=== PATIENT | male | born 1935 | race Caucasian/White ===

== ENCOUNTER 2024-04-04 18:56 | Inpatient (IN) | payer MEDICARE, OTHER, SELFPAY ==
[2024-04-04] VITALS (29 sets, daily range): BP systolic 124–168; BP diastolic 62–117; BMI 31.4
--- NOTE | 2024-04-04 14:44 | ED.GENMED ---
History of Present Illness
General
Chief Complaint: Chest Pain
Source: patient and family (Daughter is the primary historian)
Time Seen by Provider: 04/04/24 14:43
History of Present Illness
History of Present Illness:
89-year-old male complaining of 3 to 4 weeks of chest pain. In the chest and leg. Extra burping. Has a positive H. pylori result from 2 days ago. On Nexium. Symptoms are worse in the evening. Relatively continuous for this time. But does wax
and wane. Nonexertional. Pain does radiate to the back at times
Past History
Past History
ED Past Medical History: CAD, Cancer (Multiple Myeloma), GERD, HTN, Hypercholesterolemia and Other (Angina, Ulcers)
ED Past Surgical History: Cardiac (Stents X2)
Social History
Tobacco: Former smoker
Alcohol: None
Personal:
Living: with family
Family History
Family History: Other (Sister with OK, multiple sisters with hypertension)
Review of Systems
Review of Systems
All Other Systems: Not applicable
Respiratory: Reports no symptoms
ABD/GI: Denies bloody stools or black stools
Phy Exam
Physical Exam
Physical Exam:
GENERAL: Alert and oriented in no apparent distress
EYE: Orbits normal.
NECK: Supple, no thyroid palpable
ENT: Pharynx without erythema
CARDIAC: Regular rate and rhythm with moderate midsystolic murmur.
LUNGS: Clear breath sounds,normal
ABDOMEN: Soft, without focal tenderness or distention
NEUROLOGICAL: Alert and oriented , grossly non-focal
SKIN: Warm and dry, no rash or lesion, no discoloration, skin intact.
MUSCULOSKELETAL: Mild bilateral lower extremity edema
PSYCH: Normal and appropriate interaction.
Scores
Heart Score for Chest Pain Patients
STEMI patient?: No
History: Moderately Suspicious
ECG: Significant ST-Depression
Age: >/= 65 years
Risk Factors: >/= 3 Risk Factors or History of CAD
Troponin: >/= 3 x Normal Limit
Heart Score for Chest Pain Patients: 9
Heart Score Risk: 72.7 % MACE over next 6 weeks
Course
Orders/Labs/Results
Orders:
Orders
04/04/24 13:57
EKG [Electrocardiogram (*1)] Urgent
Reason for Study: Chest Pain
EKG- Treatment ONCE
04/04/24 14:54
IV Insert/Care/Rem.- Treatment PRN
0.9% Sodium Chloride 500 ml [Nss] 500 ml IV BOLUS
04/04/24 15:07
Complete Blood Count/With Diff Urgent
04/04/24 15:30
US Abdomen Complete/Upper Urgent
Comment:
Reason For Exam: upper abd pain
04/04/24 16:14
Troponin I Urgent
04/04/24 16:51
Comprehensive Metabolic Panel Urgent
04/04/24 17:38
EKG [Electrocardiogram (*1)] Urgent
Reason for Study: Chest Pain
04/04/24 17:39
EKG- Treatment ONCE
Chest X-ray Portable [CR Chest Portable - 1 View] Routine
Comment:
Reason For Exam: Admission
Reason Study Needs to be Portable: Unable to Transport
04/04/24 17:44
Heparin 4,000 units IV NOW STA
Nursing to Place Non Medication Order As Directed
Physician Order: PTT 6 hours after initial start of Heparin infusion
Above order entered?: Yes
04/04/24 17:45
Heparin 99177 Units/250 ml 25,000 units in 250 ml IV PER PROTOCOL
Weight to be used for heparin protocol in kilograms (kg):: 83
Protocol:: Cardiac Tx/Acute Coronary
PTT Goal Range to be used:: PTT 73 to 111 seconds
Order type:: Initial
INITIAL Infusion Dose (UNITS/KG/hr) & then follow protocol:: 12 units/kg/hr
Infusion Dose in UNITS/hr & then follow protocol (UNITS/hr):: 1,000
INFUSION RATE in mL/hr & then follow protocol (mL/hr):: 10
PTT less than or equal to 64 seconds:: Increase rate by 200 units/hr (+ 2 mL/hr)
PTT 64.1 to 72.9 seconds:: Increase rate by 100 units/hr (+ 1 mL/hr)
PTT 73 to 111 seconds:: Target Range. No change in rate.
PTT 111.1 to 130.9 seconds:: Decrease rate by 100 units/hr (- 1 mL/hr)
PTT 131 to 199.9 seconds:: HOLD for 1 hr. Then decrease rate by 200 units/hr (- 2 mL/hr)
PTT greater than or equal to 200 seconds:: HOLD for 2 hrs & Notify Provider. Then decrease by 200 units/hr (-
2 mL/hr)
Lab follow-up:: Each change, PTT q6h until 2 consecutive are therapeutic. Then PTT
daily.
Nitroglycerin 100 mg/250 ml [Nitroglycerin Premix] 100 mg in 250 ml IV NOW
Initial dose in mcg/min, then titrate:: 5
Titrate to keep:: Chest Pain Free
Titrate by mcg/min:: 5 mcg/min, may increase by 10 mcg/min if dose > 20 mcg/min
Frequency of titrations (minutes):: every 3-5 minutes
Maximum dose in mcg/min:: 200
Begin to taper infusion when:: Remained at goal for 2hrs
Taper by mcg/min:: 5 mcg/min
Frequency of taper (minutes) if patient maintains goal:: 30
Taper to off?: Yes
If infusion off & no longer maintaining goal:: Contact Provider
Nitroglycerin Sublingual [Nitrostat (Sublingual)] 0.4 mg SL [id number] PRN
04/04/24 17:52
Aspirin Chewable [Low Strength Aspirin] 324 mg PO NOW STA
04/04/24 17:53
PTT Urgent
Comment: Obtain baseline before beginning heparin infusion if not already collected
04/04/24 18:19
Morphine Sulfate 1 mg IV Q4HPRN PRN
Morphine Sulfate 2 mg IV Q4HPRN PRN
04/04/24 18:20
0.9% Sodium Chloride [Nss (Preservative Free)] 10 ml IV BID
Pantoprazole [Protonix IV] 40 mg IV BID
04/04/24 18:24
GASTROINTESTINAL CONSULT Routine
Consulting Provider: Jose G Torres
Was physician already notified: Yes
Reason for consult: recent breath test hpylori
04/04/24 18:28
CARDIOLOGY CONSULT Routine
Consulting Provider: Dee Montgomery
Was physician already notified: Yes
Reason for consult: nstemia
04/04/24 18:29
Admit/Transfer Patient As Directed
Co-Sign Provider:
Level of Care: Inpatient admission
Assign to:: IVU
Physician / Group: hannah kaur
Diagnosis: nstemi
Reason for Hospitalization: nstemi
Expected length of stay greater than two midnights?: Yes
ELOS- Estimated Length of Stay in days: 4
I certify the patient meets the requirements for IP care: Yes
Code Status As Directed
Resuscitation Status: Full Code
04/04/24 18:33
PRN Pain Medication Management As Directed
May give lesser potent ordered pain med per pt: Yes
preference::
Protocol:: Medication orders for pain may be administered in a
manner that supports deferring to patient preference
when the pt is:
- Requesting an ordered lesser potent pain medication.
Least to most potent pain medications are defined
as: acetaminophen < NSAID < tramadol < opioids
(morphine, oxycodone, hydromorphone).
- Requesting a lesser dose of the same medication IF
ORDERED.
- Requesting a less intrusive route of administration
if both routes are prescribed by the provider (PO <
IV).
04/04/24 18:43
Furosemide [Lasix] 40 mg IV NOW STA
04/05/24 00:00
PTT Routine
Abnormal Lab Results
04/04/24 04/04/24 04/04/24
15:07 16:14 16:51
RBC 2.80 L 10^6/uL
(4.70-6.10)
Hgb 9.1 L g/dL
(13.0-18.0)
Hct 25.7 L %
(39.0-52.0)
MCH 32.5 H pg
(27.0-31.0)
Chloride 113 H mmol/L
(98-107)
Carbon Dioxide 20 L mmol/L
(22-30)
BUN 40 H mg/dl
(9-20)
Troponin I 0.502 H* ng/ml
Total Protein 5.9 L g/dl
(6.3-8.2)
Albumin 3.3 L g/dl
(3.5-5.0)
04/04/24 15:07
04/04/24 16:51
Vital Signs
Initial and Last Documented VS:
Initial Vital Signs
Temp Pulse Resp BP Pulse Ox
98.4 F 54 16 136/64 98
04/04/24 13:54 04/04/24 13:54 04/04/24 13:54 04/04/24 13:54 04/04/24 13:54
Last Documented Vital Signs
Temp Pulse Resp BP Pulse Ox
98.4 F 77 21 135/72 97
04/04/24 13:54 04/04/24 18:45 04/04/24 18:45 04/04/24 18:45 04/04/24 18:45
MDM/Problems Addressed
Differential Diagnosis Includes:
Patient with weeks of epigastric midsternal discomfort with at times radiation to the back. Not exertional. Worse at night. Recent positive H. pylori. Highly doubt cardiac given the prolonged continuous nonexertional symptoms. However we will
do cardiac testing for completeness. EKG stable. Troponin is pending. Had initially contemplated a CT angiography to rule out dissection or aortic issue. Again very very low suspicion for this clinically. Patient is in no distress perfusing
well nontoxic and has had weeks of symptoms. However with the renal insufficiency multiple myeloma and reviewed with the signal maintainer, and reluctant to risk the dye load. Given a very low clinical suspicion. This was discussed with the daughter.
*Radiology
Radiology exam reviewed: preliminary read by ED provider (Possible mild CHF) and radiology read reviewed (Mild CHF)
*Pulse Oximetry
Patient hypoxic: no
*EKG
Interpreted by ED Provider?: Yes
Interpretation: abnormal
Comparison EKG: no changes
Heart Rate: 58
Rate: bradycardiac
Rhythm: sinus
Fruita: normal axis
Interval: normal interval
QRS Pattern: normal QRS
Ischemia: no ischemia
*Critical Care Note
Total Time (30-74mins, 75-104mins- exclusive of procedures): 45
Data Reviewed
Review of Other/Old Records Reveals: Labs, Records and Testing
Update Note
Update Note:
Rectal exam heme-negative. Patient with recurrent pain. Cardiology in the room. Heparin aspirin ordered.
1750. Repeat EKG with some ischemic changes. Will add aspirin. Daughter updated. Patient daughter stated he has been anemic from his multiple myeloma
1834... Patient with ongoing discomfort. Still states it 10 out of 10. Vital signs are stable. Cardiology and hospitalist contacted. They will initiate the [employer].
ED Attending Note
-
Portions of this chart may have been created with voice recognition software.� Occasional wrong word or��sound alike� substitutions may have occurred due to the inherent limitations of voice recognition software.
Discharge Plan
Departure
Patient Disposition: Admit
Date of Disposition: 04/04/24
Time of Disposition: 17:25
Presentation/result/management discussed w/ accepting MD/DO: Cardiology
Discharge Problem:
Epigastric/chest pain, Non-STEMI OK, Mild CHF
Prescriptions:
No Action
amlodipine 5 MG tablet
5 mg PO HS
tamsulosin 0.4 MG capsule
0.4 mg PO DAILY
nitroglycerin 0.4 MG tablet, sublingual
0.4 mg sublingual [id number] PRN (Reason: chest pain)
finasteride 5 MG tablet
5 mg PO DAILY
metoprolol succinate 50 mg tablet extended release 24 hr
75 mg PO DAILY
meloxicam 15 mg tablet
15 mg PO DAILYPRN PRN (Reason: mild pain)
famotidine 40 mg tablet
40 mg PO DAILY
isosorbide mononitrate 30 mg tablet extended release 24 hr
30 mg PO DAILY
clonazepam 0.5 mg tablet
0.5 mg PO HS
Patient Comments:
04/04/2024: last filled 03/11/24, 60 tabs for 60 days from [facility]
omeprazole 40 mg capsule,delayed release(DR/EC)
40 mg PO DAILY
alprazolam 0.25 mg tablet
0.25 mg PO TIDPRN PRN (Reason: anxiety)
Patient Comments:
04/04/2024: last filled 03/12/24, 30 tabs for 10 days from [facility]
bismuth subsalicylate [Pepto-Bismol] 262 mg/15 mL Suspension
524 mg PO AC
doxazosin 4 mg tablet
2 mg PO BID
bumetanide 1 mg tablet
1 mg PO DAILYPRN PRN (Reason: swelling)
oxycodone 5 mg tablet
5 mg PO Q8HPRN PRN (Reason: moderate to severe pain)
Patient Comments:
04/04/2024: last filled 03/11/24, 30 tabs for 7 days from [facility]
Referrals:
Toby Mcgregor MD [Family Provider] -
Interventions
Interventions:
*Risk Screen - Suicide Last Done: 04/04/24 14:52
*General Assessment Last Done: 04/04/24 14:52
*Neglect/Abuse Screening Last Done: 04/04/24 14:52
ED- Cardiac Assessment Last Done: 04/04/24 14:52
Discharge Date and Time
Print Language: LATVIAN
[2024-04-04 15:16] LABS: % Basophils 0.4 % (0-2); % Eosinophils 1.6 % (0-6); % Immature Granulocytes 0.4 % (0-0.5); % Lymphocytes 27.7 % (20.5-51.1); % Monocytes 6.4 % (1.7-9.3); % Neutrophils 63.5 % (42.2-75.2); Absolute Eosinophils 0.1 10^3/uL (0-0.7); Absolute Lymphocytes 1.9 10^3/uL (1.2-3.4); Absolute Monocytes 0.4 10^3/uL (0.1-0.6); Absolute Neutrophils 4.3 10^3/uL (1.4-6.5); Hematocrit 25.7 % (39.0-52.0); Hemoglobin 9.1 g/dL (13.0-18.0); Mean Corp Hgb Conc. 35.4 g/dL (33.0-37.0); Mean Corpuscular Hgb 32.5 pg (27.0-31.0); Mean Corpuscular Volume 91.8 fL (80.0-94.0); Mean Platelet Volume 9.9 fL (7.4-10.4); Nucleated Red Blood Cells % 0 % (-); Platelet Count 131 10^3/uL (130-400); Red Cell Dist. Width 13.4 % (11.5-14.5); White Blood Cell Count 6.8 10^3/uL (4.8-10.8)
[2024-04-04] MEDS: NSS 500 IV (15:19)
[2024-04-04 16:55] LABS: Troponin I 0.502 ng/ml
[2024-04-04 17:13] LABS: ALT (SGPT) 13 U/L (0-50); AST (SGOT) 28 U/L (17-59); Albumin 3.3 g/dl (3.5-5.0); Alkaline Phosphatase 67 U/L (38-126); Blood Urea Nitrogen 40 mg/dl (9-20); Calcium 8.6 mg/dl (8.4-10.2); Carbon Dioxide 20 mmol/L (22-30); Chloride 113 mmol/L (98-107); Estimated Creatinine Clearance 39 ml/min; Glucose 79 mg/dl (70-99); Potassium 4.4 mmol/L (3.5-5.1); Sodium 141 mmol/L (135-145); Total Bilirubin 0.4 mg/dl (0.2-1.3); Total Protein 5.9 g/dl (6.3-8.2); eGFR 53.17
--- NOTE | 2024-04-04 17:50 | HPS.HSE ---
Family Physician
-
Family Physician: Toby Mcgregor
Chief Complaint
-
Chest pain with dyspepsia, belching
History of Present Illness
89-year-old male complaining of 3 to 4 weeks of chest pain with dyspepsia/belching. He reports the chest pain has gotten worse and radiated to his left arm over the past 10 days. He has been taking 1-2 nitroglycerin sublingual daily for the past 2
weeks according to his daughter. His daughter who is at bedside translating [place] to [place] states he had a breath test at his PCP that was positive for H. pylori result from test 2 days ago. He is currently only on Nexium. He was not placed
on H. pylori treatment..
He has history of gastric ulcers every 2 years per daughter nonbleeding follows with Dr. Adrian Frankel. His past medical history of cardiac stent x 2 with cardiology at [facility]. He denies headache, fever, sore throat, shortness of
breath, cough, abdominal pain, nausea, vomiting, diarrhea, urinary symptoms. He did have episode of black stool yesterday but took Pepto-Bismol. He was guaiac negative in the ED.
He has history of multiple myeloma is currently being treated at [facility] with no current treatment over the past 4 months due to being stable. His daughter does not know current treatment that he receives.
He has past medical history of CAD/cardiac stents x 2, aortic stenosis, HTN, HLD, angina, gastric ulcers, GERD, multiple myeloma being treated at [facility], history of anemia in 2023., former smoker, obesity.
Medical History
Past Medical History
Past Medical History: Reports Other
Additional Past Medical History:
CAD/cardiac stents x 2 [facility]
aortic stenosis
HTN
HLD
angina
gastric ulcers every 2 years per daughter
GERD
multiple myeloma being treated at [facility], history of anemia in 2023.
former smoker
obesity.
Past Surgical History: Reports Cardiac (Stent x 2 at [facility])
Additional Past Surgical History:
Cardiac stent x 2
Multiple endoscopies
Social History
Tobacco: Former Smoker (Quit 20 years ago)
Alcohol: None
Drug: None
Personal: Single
Living: With Family
Employment: Retired
Family History
Family History: Other (Patient's parents when he was a child unsure sister history of CAD, MIs)
Allergies / Home Medications
Allergies reflects when Allergies were last updated in [facility].
Home Medications with original date entered in [facility]
Allergy/Medication List:
Allergies
Allergy/AdvReac Type Severity Reaction Status Date / Time
Penicillins Allergy Unknown Verified 04/04/24 13:54
Home Medications
amlodipine 5 mg tablet 5 mg PO HS 01/15/19
finasteride 5 mg tablet 5 mg PO DAILY 01/15/19
nitroglycerin 0.4 mg sublingual tablet 0.4 mg sublingual [id number] PRN chest pain 01/15/19
tamsulosin 0.4 mg capsule 0.4 mg PO DAILY 01/15/19
alprazolam 0.25 mg tablet 0.25 mg PO TIDPRN PRN anxiety 04/04/24
bismuth subsalicylate 262 mg/15 mL oral suspension (Pepto-Bismol) 524 mg PO AC 04/04/24
bumetanide 1 mg tablet 1 mg PO DAILYPRN PRN swelling 04/04/24
clonazepam 0.5 mg tablet 0.5 mg PO HS 04/04/24
doxazosin 4 mg tablet 2 mg PO BID 04/04/24
famotidine 40 mg tablet 40 mg PO DAILY 04/04/24
isosorbide mononitrate 30 mg tablet,extended release 24 hr 30 mg PO DAILY 04/04/24
meloxicam 15 mg tablet 15 mg PO DAILYPRN PRN mild pain 04/04/24
metoprolol succinate 50 mg tablet,extended release 24 hr 75 mg PO DAILY 04/04/24
omeprazole 40 mg capsule,delayed release 40 mg PO DAILY 04/04/24
oxycodone 5 mg tablet 5 mg PO Q8HPRN PRN moderate to severe pain 04/04/24
Review of Systems
-
History Source: Patient and Family (Daughter translating for father as he speaks Australian only)
A 12 point ROS was completed and negative except as noted: Yes
Constitutional: Denies Fever, Weight Gain, Weight Loss or Fatigue
EENT: Denies Sore Throat or Mouth Swelling
Respiratory: Reports Other (Belching); Denies Cough or Trouble Breathing
Cardiac: Reports Chest Pain; Denies Diaphoresis, Palpitations or Syncope
Abdomen/GI: Reports Black Stools (Yesterday after Pepto-Bismol); Denies Abdominal Pain, Nausea, Vomiting, Diarrhea, Constipated or Bloody Stools
: Denies Dysuria, Frequency, Flank Pain, Incontinence, Difficulty Voiding or Urgency
Musculoskeletal: Denies Joint Pain or Muscle Stiffness
Skin: Denies Itching or Rash
Neurological: Denies Dizzy or Headache
Endocrine: Reports No Symptoms
Hematologic/Lymphatic: Reports No Symptoms
Psych: Reports Calm
Physical Exam
Vital Signs
Vital Signs
Temp Pulse Resp BP Pulse Ox
98.4 F 52 13 143/65 96
04/04/24 13:54 04/04/24 16:30 04/04/24 16:30 04/04/24 16:00 04/04/24 16:30
Physical Exam
General: Pain (8) and Obese; No Fever or Chills
HEENT: NormoCephalic, Anicteric, Moist mucous membranes, PERRLA, [place] Conjunctivae and No Ptosis
Respiratory: Clear; No Wheezes, Rales or Rhonchi
Cardiac: S1/S2 and Regular Rhythm; No Murmur, Rub, Gallop or Peripheral Edema
GI: Soft, Non Tender, Non Distended, Normal Bowel Sounds and No Hepatosplenomegaly
Rectal: Deferred by Provider
Genito-urinary: Deferred by me
Musculoskeletal: No Clubbing, No Cyanosis and No Edema
Skin: Warm and Dry; No Rash
Neuro: AO x 3 (Per daughter who speaks Australian), Nonfocal/grossly intact and No Sensory Deficits; No Slurred Speech, Facial Droop or Tremors
Psych: Calm
Laboratory Results
-
04/04/24 15:07
04/04/24 16:51
Laboratory Results
Total Bilirubin 0.4 mg/dl (0.2-1.3) 04/04/24 16:51
AST 28 U/L (17-59) 04/04/24 16:51
ALT 13 U/L (0-50) 04/04/24 16:51
Alkaline Phosphatase 67 U/L (38-126) 04/04/24 16:51
Troponin I 0.502 ng/ml H* 04/04/24 16:14
Lipase Cancelled 04/04/24 15:07
Impression/Plan
-
Impression/plan:
Inpatient IVU
#NSTEMI
Troponin 0.502, will trend along with EKG
-Heparin drip with bolus
-Nitro drip
-Consult cardiology-CBC
-Hold Imdur as patient is on nitro drip
-Morphine as needed pain
-Continue metoprolol succinate 75 mg daily with hold parameters
-N.p.o. after midnight for cardiac cath in a.m.
-Obtain records from [facility] cardiology
-Check 2D echo
-Hold current as needed Bumex ? Hx CHF
EKG: Sinus bradycardia 58 bpm, QTc 445 MS otherwise normal
#Multiple myeloma with acute on chronic anemia
Hgb 9.1 prior baseline 2022(reports history of anemia in 2023 but does not know lab values)
RBC 2.80
-Currently gets treatment at [facility] no current treatment time past 4 months
-Will obtain records from [facility]
#History H. pylori-recent breath test by PCP received results 04/02/2024
-Continue IV Protonix twice daily in place of current Nexium
-Consult GI for possible treatment given H. pylori was done by breath test only
#HTN�benign
BP 143/65
-Patient currently on nitro drip
-Will hold amlodipine 5 mg at bedtime
#Chronic leg pain unclear
Hold meloxicam 15 mg daily as needed
#Anxiety
-Continue alprazolam 0.25 mg p.o. 3 times daily as needed anxiety, clonazepam 0.5 mg at bedtime
#BPH
-Continue Flomax 0.4 mg daily with hold parameters
-Continue doxazosin 2 mg p.o. twice daily
#Former smoker
-Quit 20 years ago
#Obesity due to excess calorie consumption�BMI 31.4
Affects all aspects of care
Weight loss recommended
DVT prophylaxis
Current IV heparin drip
Full code
[2024-04-04] MEDS: NITROSTAT (SUBLINGUAL) 0.4 MG SL (18:02)
[2024-04-04] MEDS: HEPARIN 4000 UNITS IV (18:04)
[2024-04-04] MEDS: LOW STRENGTH ASPIRIN 324 MG PO (18:05)
[2024-04-04] MEDS: HEPARIN 25000 UNITS/250 ML IV (18:07)
[2024-04-04] MEDS: NITROGLYCERIN PREMIX 250 IV (18:08)
[2024-04-04 18:11] LABS: APTT 30.9 Sec (23.4-35.0)
[2024-04-04] MEDS: NSS (PRESERVATIVE FREE) 10 ML IV (18:38)
[2024-04-04] MEDS: PROTONIX IV 40 MG IV (18:38)
[2024-04-04] MEDS: MORPHINE SULFATE 2 MG IV (18:40)
--- NOTE | 2024-04-04 20:18 | ITS.CL.ANGIO ---
Soap [employer]inder - Angioplasty
Angioplasty
Procedure Report:
CARDIAC CATHETERIZATION REPORT
Date of Procedure: 04/04/2024
Referring: Dee Montgomery M.D.
INDICATION: High risk non-ST elevation myocardial infarction with lateral ST segment depressions.
PROCEDURE:
1. Coronary angiography.
2. Successful PCI of the ramus intermedius.
ACCESS:
6 [place]ien right radial artery.
CATHETERS:
1. 5 [place] JR4.
2. 5 Nigerien JL 3.5.
3. 6 [place] EBU 3.5 guiding catheter.
HEMODYNAMIC DATA
Weight (kg): 83.0
AO (s/d/x, mmHg): 116/67/87
LV (s/x mmHg): Not obtained.
LEFT VENTRICULOGRAPHY: Not performed.
CORONARY ANGIOGRAPHY
Dominance: Right.
Left Main: Normal size, trifurcating vessel. There is a 40-50% tapering of the distal left main.
LAD: Normal size vessel giving rise to 1 small diagonal. A patent stent is observed in the proximal vessel. There is a 30-40% lesion in the proximal LAD that begins proximal to the stent and extends into the proximal stent margin. There are
luminal irregularities elsewhere.
Ramus: Large size vessel supplying the entire anterolateral wall. There is a 40% lesion in the proximal vessel. There is a hazy, 80% ruptured plaque in the mid vessel.
Circumflex: Normal size, nondominant vessel giving rise to 2 obtuse marginals. There is a 30-40% lesion in the mid vessel, immediately after the origin of OM1. There is a patent stent in the proximal margin of OM 2.
RCA: Large size, dominant vessel with a large posterolateral arcade. There is a 40% tapering of the proximal vessel. There are luminal irregularities throughout the remainder of the vessel. There is a discrete, 30% lesion in the distal RCA.
INTERVENTION(S)
1. Successful PCI of the hazy, 80% ruptured plaque in the mid ramus intermedius ([employer]onic [place] 3.0 x 18 RAYNE, postdilated with a 3.0 NC balloon) with reduction in stenosis to 0%, maintaining GROVER-3 flow.
Narrative:
The decision was made to proceed with percutaneous coronary intervention. The diagnostic catheter was removed over a wire and a 6Fr EBU 3.5 guiding catheter was advanced to the aortic root and seated in the left main coronary artery. Additional
heparin was given and a Power Turn Flex wire was advanced into the distal ramus intermedius. The hazy, 80% ruptured plaque lesion in the ramus was predilated with a 2.0 x 12 semi-compliant balloon to 12 curtis. The semi-compliant balloon was removed
and a [employer]tronic [place] 3.0 x 18 drug-eluting stent was advanced. The stent was deployed at 12 atmospheres. The stent balloon was removed. A 3.0 x 15 noncompliant balloon was advanced into the stent and the stent was postdilated to 14
atmospheres. Angiography was performed in orthogonal views, confirming good stent expansion and an excellent angiographic result. The coronary wire was withdrawn and the guide was disengaged from the artery. The catheter was removed over a standard
J-wire.
Closure Device: Vascular band.
Radiation (mGy): 883.93
DAP (cm2.Gy): 75.0595
Fluoroscopy time (minutes): 7.5
Sedation time (minutes): 34
CONCLUSIONS
1. Right dominant circulation with a 40% tapering of the proximal RCA, a 30% lesion in the distal RCA, a 30-40% in the mid circumflex, a patent stent in proximal OM 2, a 40-50% tapering of the distal left main, a 30-40% lesion in the proximal LAD
leading into in-stent restenosis, a 40% lesion in the proximal ramus and a hazy, 80% ruptured plaque in the mid ramus, status post successful PCI ([employer]tronic [place] 3.0 x 18 RAYNE, postdilated with a 3.0 NC balloon) with reduction in stenosis to
0%, maintaining GROVER-3 flow.
RECOMMENDATIONS:
1. Expectant management after cardiac catheterization via right radial approach.
2. Limited weight bearing on the right wrist for one week.
3. Dual antiplatelet therapy with aspirin and ticagrelor for at least 12 months, followed by aspirin indefinitely.
4. Aggressive risk factor modification.
5. Guideline directed medical therapy as hemodynamics will tolerate.
6. Echocardiogram ordered and pending.
7. Referral to cardiac rehab.
Copy to: Dee Montgomery M.D., Brittaney Bailon M.D., Toby Mcgregor M.D.
Eugene Kilpatrick DO, FACC, FACP
[2024-04-04] MEDS: LASIX 40 MG IV (21:16)
[2024-04-04] MEDS: NSS (PRESERVATIVE FREE) IV (21:28)
[2024-04-04] MEDS: PROTONIX IV IV (21:28)
[2024-04-04 21:59] LABS: Troponin I 0.491 ng/ml
[2024-04-04] MEDS: CARDURA 2 MG PO (23:14)
[2024-04-04] MEDS: KLONOPIN 0.5 MG PO (23:14)
[2024-04-05] VITALS (24 sets, daily range): BP systolic 117–188; BP diastolic 55–120; PULSE 75; BMI 29.6
--- NOTE | 2024-04-05 00:19 | PTCARENOTE ---
Pt admit to IVU ~2014 from label sewer. Pt belongings w/ pt, daughter at bedside. Pt confused as to where he is and what is going on, daughter reoriented pt. Neuro otherwise intact. HR SR w/ Pro QT. Language line in room. Bed alarm placed. Call reyes
within reach. Nitro currently infusing at 10mcg/min, pt reports still CP free. R radial band on, surrounding site soft - no hematoma.
[2024-04-05 03:34] LABS: Hematocrit 28.4 % (39.0-52.0); Hemoglobin 9.9 g/dL (13.0-18.0); Mean Corp Hgb Conc. 34.9 g/dL (33.0-37.0); Mean Corpuscular Hgb 32.9 pg (27.0-31.0); Mean Corpuscular Volume 94.4 fL (80.0-94.0); Mean Platelet Volume 10.6 fL (7.4-10.4); Platelet Count 143 10^3/uL (130-400); Red Blood Cell Count 3.01 10^6/uL (4.70-6.10); Red Cell Dist. Width 13.4 % (11.5-14.5); White Blood Cell Count 7.2 10^3/uL (4.8-10.8)
[2024-04-05 04:00] LABS: ALT (SGPT) 14 U/L (0-50); AST (SGOT) 30 U/L (17-59); Albumin 3.7 g/dl (3.5-5.0); Alkaline Phosphatase 72 U/L (38-126); Blood Urea Nitrogen 35 mg/dl (9-20); Carbon Dioxide 22 mmol/L (22-30); Chloride 110 mmol/L (98-107); Estimated Creatinine Clearance 36 ml/min; Glucose 82 mg/dl (70-99); HDL Cholesterol 51 mg/dl; LDL Cholesterol, Calculated 138 mg/dl; Potassium 4.1 mmol/L (3.5-5.1); Sodium 144 mmol/L (135-145); Total Bilirubin 0.7 mg/dl (0.2-1.3); Total Cholesterol 211 mg/dl (50-199); Total Protein 6.4 g/dl (6.3-8.2); Triglyceride 111 mg/dl (10-149); Very Low Density Lipoprotein 22 mg/dl (0-30); eGFR 48.65
--- NOTE | 2024-04-05 08:00 | CON.GI ---
Consultation
-
Date/Time Consultation Requested: 04/04/24 at 6pm
Date/Time Consultation Performed: 04/05/24 at 7am
Requesting Provider: Idalmis
Performing Provider: Melissa
Reason for Consultation: hpylori positive
Medical History
Chief Complaint / HPI
Chief Complaint: chest pain
History of Present Illness:
Pt is a 89 y/o Japanese speaking man who was admitted with chest pain found to have an NSTEMI and went to the dental laboratory assistant for revascularization. he admits to dyspepsia but no issue eating, no dysphagia. He has a hx of PUD 15-20 yrs ago. He follows
with Dr. Frankel his editor house organ and had an egd 2 yrs ago. He found out from him that he is Hpylori positive but hasn't had treatment yet. No vomiting or rectal bleeding.
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
Past Medical History
Past Medical History: CAD, GERD, HTN, NV and Other (PUD)
Past Surgical History: Other (cardiac stents)
Social History
Tobacco: Former Smoker
Alcohol: None
Family History
Family History: Reviewed & Not Pertinent
Allergies / Home Medications
Allergy/AdvReac Type Severity Reaction Status Date / Time
Penicillins Allergy Unknown Verified 04/04/24 13:54
�Medication �Instructions �Recorded
amlodipine 5 mg tablet 5 mg PO HS 01/15/19
finasteride 5 mg tablet 5 mg PO DAILY 01/15/19
nitroglycerin 0.4 mg sublingual 0.4 mg sublingual [id number] PRN 01/15/19
tablet chest pain
tamsulosin 0.4 mg capsule 0.4 mg PO DAILY 01/15/19
alprazolam 0.25 mg tablet 0.25 mg PO TIDPRN PRN anxiety 04/04/24
bismuth subsalicylate 262 mg/15 mL 524 mg PO AC 04/04/24
oral suspension (Pepto-Bismol)
bumetanide 1 mg tablet 1 mg PO DAILYPRN PRN swelling 04/04/24
clonazepam 0.5 mg tablet 0.5 mg PO HS 04/04/24
doxazosin 4 mg tablet 2 mg PO BID 04/04/24
famotidine 40 mg tablet 40 mg PO DAILY 04/04/24
isosorbide mononitrate 30 mg 30 mg PO DAILY 04/04/24
tablet,extended release 24 hr
meloxicam 15 mg tablet 15 mg PO DAILYPRN PRN mild pain 04/04/24
metoprolol succinate 50 mg 75 mg PO DAILY 04/04/24
tablet,extended release 24 hr
omeprazole 40 mg capsule,delayed 40 mg PO DAILY 04/04/24
release
oxycodone 5 mg tablet 5 mg PO Q8HPRN PRN moderate to 04/04/24
severe pain
Review of Systems
-
All other systems: A 12 pt ROS was Negative except as stated above in HPI
Vital Signs
Temp Pulse Resp BP Pulse Ox
98.2 F 71 18 150/74 95
04/05/24 07:32 04/05/24 07:45 04/05/24 07:32 04/05/24 07:32 04/05/24 07:32
Physical Exam
Exam
General: No Apparent Distress
Cardiac: S1/S2
GI: Soft, Non Tender and Non Distended
Skin: Warm
Neuro: Awake
Results
WBC 7.2 10^3/uL (4.8-10.8) 04/05/24 03:01
Hgb 9.9 g/dL (13.0-18.0) L 04/05/24 03:01
Hct 28.4 % (39.0-52.0) L 04/05/24 03:01
MCV 94.4 fL (80.0-94.0) H 04/05/24 03:01
Plt Count 143 10^3/uL (130-400) 04/05/24 03:01
Absolute Neuts (auto) 4.3 10^3/uL (1.4-6.5) 04/04/24 15:07
APTT 30.9 Sec (23.4-35.0) 04/04/24 17:53
Sodium 144 mmol/L (135-145) 04/05/24 03:01
Potassium 4.1 mmol/L (3.5-5.1) 04/05/24 03:01
Chloride 110 mmol/L (98-107) H 04/05/24 03:01
Carbon Dioxide 22 mmol/L (22-30) 04/05/24 03:01
BUN 35 mg/dl (9-20) H 04/05/24 03:01
Creatinine 1.4 mg/dL (0.7-1.3) H 04/05/24 03:01
Calcium 9.0 mg/dl (8.4-10.2) 04/05/24 03:01
Total Bilirubin 0.7 mg/dl (0.2-1.3) 04/05/24 03:01
AST 30 U/L (17-59) 04/05/24 03:01
ALT 14 U/L (0-50) 04/05/24 03:01
Alkaline Phosphatase 72 U/L (38-126) 04/05/24 03:01
Lipase Cancelled 04/04/24 15:07
Assessment / Plan
-
Pt with NSTEMI with a hx of dyspepsia known to be Hpylori positive. Does have a remote hx of PUD
1. use PPI bid for now
2. dyspepsia mild and not causing much issue for patient. may be from Hpylori but I would treat as an outpatient as it is important to be consistent with doses.
3. Pt acknowledges that he will f/u with his outpatient gi
4. no contraindication for any anticoagulation/antiplatelet agents, hgb stable
will sign off
-
-
Thank you for consultation and allowing me to participate in the patient's care. Please call the reclamation supervisor GI physician during the after hours with any questions or concerns.
[2024-04-05] MEDS: BRILINTA 90 MG PO ×2 (08:08→20:11)
[2024-04-05] MEDS: FLOMAX 0.4 MG PO (08:09)
[2024-04-05] MEDS: PROSCAR 5 MG PO (08:09)
[2024-04-05] MEDS: CARDURA 2 MG PO ×2 (08:09→20:11)
[2024-04-05] MEDS: PROTONIX IV 40 MG IV ×2 (08:10→20:10)
[2024-04-05] MEDS: NSS (PRESERVATIVE FREE) 10 ML IV ×2 (08:10→20:11)
[2024-04-05] MEDS: TOPROL XL 75 MG PO (08:10)
[2024-04-05 08:14] LABS: % Basophils 0.3 % (0-2); % Eosinophils 1.7 % (0-6); % Immature Granulocytes 0.3 % (0-0.5); % Lymphocytes 26.3 % (20.5-51.1); % Monocytes 5.7 % (1.7-9.3); % Neutrophils 65.7 % (42.2-75.2); Absolute Eosinophils 0.1 10^3/uL (0-0.7); Absolute Lymphocytes 1.9 10^3/uL (1.2-3.4); Absolute Monocytes 0.4 10^3/uL (0.1-0.6); Absolute Neutrophils 4.7 10^3/uL (1.4-6.5); Nucleated Red Blood Cells % 0 % (-)
--- NOTE | 2024-04-05 09:10 | W.PN.HOSP.TC ---
Today's Communication/Plan
-
Echocardiogram
Assessment / Plan
Assessment / Plan
Physical Exam
General: Not in acute distress
HEENT: Normocephalic
Respiratory: CTAB
Cardiac: S1/S2 and Regular Rhythm
GI: Soft, Non Tender, Non Distended, Normal Bowel Sounds
Musculoskeletal: No Cyanosis and No Edema
Skin: Warm and Dry; No Rash
Neuro: AO x 3 (Per daughter who speaks Guamanian), Nonfocal/grossly intact and No Sensory Deficits; No Slurred Speech, Facial Droop or Tremors
Psych: Calm

Assessment/Plan
Patient is an 89-year-old male with CAD s/p PCI x 2, multiple myeloma, HTN, HLD, GERD, aortic stenosis, H/O peptic ulcer disease (H. pylori positive breath test) that presented to the ED with a complaint of chest pain. States that his chest pain
started roughly 3 to 4 weeks prior to presentation.�He denied any exertional component to his pain but did state it is worse at night.� He denied any associated shortness of breath, palpitations, lightheadedness.� Did not seem to be in any acute
distress while in the ED, nontoxic-appearing. AFVSS in the ED.� Initial labs showed hemoglobin 9.1, BUN 40, creatinine 1.3, total protein 5.9 with albumin 3.3.� Initial troponin 0.5.� Initial EKG showed sinus bradycardia though no acute ST
deviation, T wave abnormality, STEMI equivalent.� EKG was very similar to last that he had.� There was mention of some ST depressions seen on the digital marketing intern in the room. Was given IV fluid in the ED. Patient's daughter states that he has had
worsening symptoms of dyspepsia with bloating, belching recently. Pain initially improved, while in the ED though it subsequently returned and worsened. Cardiology planned for cardiac cath.
Upon exam the patient did have a late peaking systolic murmur consistent with aortic stenosis, soft S2 with normal upstroke. Otherwise appeared euvolemic without adventitious breath sounds.
Differential for presentation include ACS versus peptic ulcer disease symptoms.
Plan:
-Continue with nitro drip for now
-Trend troponin to peak with serial ECGs, monitor telemetry
-Start heparin drip and plan for coronary angiography this evening
-Start IV PPI twice daily empirically for PUD
-Start IV morphine as needed for pain
-Consider abdominal x-ray if cath negative, worsening pain suggestive of PUD/perforation
-GI consult, question if empiric treatment of H. pylori for positive breath test is appropriate
-Cardiology consult for coronary angiography

Inpatient IVU
#NSTEMI
Troponin 0.502, will trend along with EKG
-Status post Heparin and Nitro drips
-Consult cardiology-CBC
-Resume Imdur per cardio
-Continue metoprolol succinate 75 mg daily with hold parameters
-Check 2D echo
-Hold current as needed Bumex ? Hx CHF
#Multiple myeloma with acute on chronic anemia
-Currently gets treatment at [facility] no current treatment time past 4 months
-Follow-up outpatient
#History H. pylori-recent breath test by PCP received results 04/02/2024
-Continue IV Protonix twice daily in place of current Nexium
-Consult GI for possible treatment given H. pylori was done by breath test only -- per GI patient should only be started on the treatment outpatient physician
#HTN�benign
BP 143/65
-Resume home Amlodipine
#Chronic leg pain unclear
Hold meloxicam 15 mg daily as needed
#Anxiety
-Continue alprazolam 0.25 mg p.o. 3 times daily as needed anxiety, clonazepam 0.5 mg at bedtime
#BPH
-Continue Flomax 0.4 mg daily with hold parameters
-Continue doxazosin 2 mg p.o. twice daily
#Former smoker
-Quit 20 years ago
#Obesity due to excess calorie consumption�BMI 31.4
Affects all aspects of care
Weight loss recommended
DVT prophylaxis: Foot pumps
Full code
Anticipated Discharge: 24 - 48 hours
Subjective/Interval History
-
Date of Service: April 05, 2024
Patient was seen and examined. He denied any chest pain or shortness of breath.
Objective Data
-
Labs:
Laboratory Results
04/05/24 04/05/24
03:01 08:43
WBC 7.2
Hgb 9.9 L
Hct 28.4 L
Plt Count 143
APTT Pending
Sodium 144
Potassium 4.1
Chloride 110 H
Carbon Dioxide 22
BUN 35 H
Creatinine 1.4 H
Glucose 82
Calcium 9.0
Total Bilirubin 0.7
AST 30
ALT 14
Alkaline Phosphatase 72
Vital Signs:
Vital Signs
Temp Pulse Resp BP Pulse Ox
98.2 F 71 18 150/71 95
04/05/24 07:32 04/05/24 08:10 04/05/24 07:32 04/05/24 08:10 04/05/24 07:32
I&O
04/04/24 04/05/24 04/06/24
06:59 06:59 06:59
Output Total 775 / 775
Balance -775 / -775
--- NOTE | 2024-04-05 09:14 | W.PN.CD ---
Today's Communication / Plan
-
DAPT ( brilinta - ASA)
Echo
obtain reord to know if he is on statin at home or if there is contraindication
Impression / Plan
-
89-year-old male with CAD / prior PCI multiple myeloma, HTN, HLD, GERD, aortic stenosis, PUD who present ed with CP, ACS/NSTMI.
.
NSTMI
- peak troponin 0.5
-Ramus stenting 04/04/24
- cath with 80% ramus nikole was [id number] stented. LM 40-50%, LAD 30-40%, LCX 30-40%, RCA 40%
-DAPT
- mild 2021 - assess with echo
anemia - - h/o multiple myeloma - Hb 9.9 - monitor
CKD - cr 1.4 monitor
HTN- stable continue therapy
hyercolesterolemia - ? unclear why not on statin- need to assess
Multiple myeloma- [place]
GERD- PPI
Physical Exam
Vital Signs/Labs
Vital Signs
Temp Pulse Resp BP Pulse Ox
98.2 F 71 18 150/71 95
04/05/24 07:32 04/05/24 08:10 04/05/24 07:32 04/05/24 08:10 04/05/24 07:32
04/04/24 04/05/24 04/06/24
06:59 06:59 06:59
Actual Weight 78.2 kg
04/05/24 03:01
04/05/24 03:01
APTT 30.9 Sec (23.4-35.0) 04/04/24 17:53
Triglycerides 111 mg/dl (10-149) 04/05/24 03:01
LDL Cholesterol, Calc 138 mg/dl 04/05/24 03:01
VLDL Cholesterol, Calc 22 mg/dl (0-30) 04/05/24 03:01
HDL Cholesterol 51 mg/dl 04/05/24 03:01
LAB Results
04/04/24 04/04/24 04/04/24
15:07 16:14 20:15
Troponin I Cancelled 0.502 H* Cancelled
04/04/24 04/05/24
21:21 03:01
Troponin I 0.491 H* 0.520 H*
Physical Exam
Constitutional: No acute distress
Cardiovascular: Rhythm & rate is regular
Respiratory: Respiratory effort normal
GI: Soft, Non tender and Normal bowel sounds
Neuro/Psych: Alert
Other: Other (radial cath siteis fine)
Data Reviewed
-
Date of Service: April 05, 2024
Medical Decision Making: Reviewed Test Results
X-Ray/CT/US/MRI/NUC/PET: Report Reviewed by me
Medical Tests (PFT, Pathology etc): Report Reviewed by me
Labs: Labs Reviewed by me
[2024-04-05 09:20] LABS: APTT 30.8 Sec (23.4-35.0)
[2024-04-05 09:45] LABS: Troponin I 0.768 ng/ml
[2024-04-05] MEDS: LOW STRENGTH ASPIRIN 81 MG PO (09:51)
--- NOTE | 2024-04-05 10:13 | PTCARENOTE ---
Reached out to hospitalist regarding updates about patient; 8 am troponin increased, pt endorsing stomach pain (that is same pain he has had for weeks), pt asking for diet order.
[2024-04-05 10:27] LABS: Glycohemoglobin (HgbA1c) 5.5 % (4.0-5.6)
--- NOTE | 2024-04-05 12:07 | CM ---
Reviewed chart. Met with and Mrs. Day and daughter to review discharge plans. Daughter states he does not speak Arabic and she was my margin trimmer. She states prior to admission he resides with his spouse in a one story townhouse without any
steps to enter. She states prior to admission he ambulates with a rolling walker. She states he has a home health aide Friday to Friday from 10:00 a.m. to 6:00 p.m. He has a prescription plan nad uses [facility]. Telephone call to [facility],([phone]) to check on co-pay for Brilinta 90 mg po bid. He has a zero co-pay for 30 day supply and zero co-pay for 90 day supply. Telephone call to [facility] to see if they have Brilinta 90 mg po bid in stock . [facility] states he has it in stock. Medical work-up in progress. 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
[2024-04-05 15:16] LABS: Troponin I 0.736 ng/ml
--- NOTE | 2024-04-05 16:14 | PTCARENOTE ---
Reached out to hospitalist through [place] text about patient about patients higher SBP's this afternoon. See flowsheets for details
[2024-04-05] MEDS: NITROSTAT (SUBLINGUAL) 0.4 MG SL ×2 (19:06→19:12)
--- NOTE | 2024-04-05 19:39 | PTCARENOTE ---
During shift change, pt told RN's that he was having acute onset of chest pain. He was dyspneic on assessment, spO2 was 93% on room air, but SBP was >180. Pt endorsed mid sternal pain that was spreading down arm. Nitro was given per order- SBP >150
and/or chest pain. First dose helped patient chest pain go from 8/10 to 4/10. Pt's systolic blood pressure was still >150 and chest pain became 5/10 so next nitro was given per order. After second nitro patient continued to have more relief. EKG was
performed and [facility] notified of episode.
[2024-04-05 20:22] LABS: Troponin I 0.658 ng/ml
[2024-04-05] MEDS: NORVASC 5 MG PO (22:27)
[2024-04-05] MEDS: MORPHINE SULFATE 1 MG IV (22:38)
[2024-04-05] MEDS: KLONOPIN PO (22:48)
[2024-04-05] MEDS: MYLICON 80 MG PO (23:56)
[2024-04-05] MEDS: COLACE 100 MG PO (23:56)
[2024-04-05] MEDS: PERCOCET 5/325 1 TABLET PO (23:56)
[2024-04-06] VITALS (11 sets, daily range): BP systolic 107–176; BP diastolic 62–79; PULSE 76–99; O2SAT 98; BMI 29.6
--- NOTE | 2024-04-06 00:20 | PTCARENOTE ---
Pt with epigastric pain 6/10 Morphine given with some relieve. Then pt. started belching that cause a lot of discomfort. Simethicone and Percocet given. Pt resting comfortable.
[2024-04-06 04:42] LABS: Hematocrit 27.9 % (39.0-52.0); Hemoglobin 9.8 g/dL (13.0-18.0); Mean Corp Hgb Conc. 35.1 g/dL (33.0-37.0); Mean Corpuscular Hgb 32.1 pg (27.0-31.0); Mean Corpuscular Volume 91.5 fL (80.0-94.0); Mean Platelet Volume 10.1 fL (7.4-10.4); NT-proBNP 3960 pg/ml; Platelet Count 144 10^3/uL (130-400); Red Blood Cell Count 3.05 10^6/uL (4.70-6.10); Red Cell Dist. Width 13.3 % (11.5-14.5); White Blood Cell Count 7.3 10^3/uL (4.8-10.8)
[2024-04-06 04:48] LABS: ALT (SGPT) 13 U/L (0-50); AST (SGOT) 29 U/L (17-59); Albumin 3.5 g/dl (3.5-5.0); Alkaline Phosphatase 68 U/L (38-126); Blood Urea Nitrogen 37 mg/dl (9-20); Calcium 8.8 mg/dl (8.4-10.2); Carbon Dioxide 19 mmol/L (22-30); Chloride 110 mmol/L (98-107); Estimated Creatinine Clearance 35 ml/min; Glucose 86 mg/dl (70-99); Potassium 4.3 mmol/L (3.5-5.1); Sodium 141 mmol/L (135-145); Total Bilirubin 0.7 mg/dl (0.2-1.3); Total Protein 6.1 g/dl (6.3-8.2); eGFR 48.65
[2024-04-06 06:53] LABS: % Basophils 0.3 % (0-2); % Eosinophils 1.6 % (0-6); % Immature Granulocytes 0.3 % (0-0.5); % Lymphocytes 23.2 % (20.5-51.1); % Neutrophils 66.6 % (42.2-75.2); Absolute Eosinophils 0.1 10^3/uL (0-0.7); Absolute Lymphocytes 1.7 10^3/uL (1.2-3.4); Absolute Monocytes 0.6 10^3/uL (0.1-0.6); Absolute Neutrophils 4.9 10^3/uL (1.4-6.5); Nucleated Red Blood Cells % 0 % (-)
[2024-04-06] MEDS: MORPHINE SULFATE 1 MG IV (08:37)
[2024-04-06] MEDS: PROTONIX IV 40 MG IV ×2 (08:42→19:34)
[2024-04-06] MEDS: NSS (PRESERVATIVE FREE) 10 ML IV ×2 (08:42→19:34)
[2024-04-06] MEDS: TOPROL XL 75 MG PO (08:43)
[2024-04-06] MEDS: FLOMAX 0.4 MG PO (08:43)
[2024-04-06] MEDS: CARDURA 2 MG PO ×2 (08:44→19:34)
[2024-04-06] MEDS: BRILINTA 90 MG PO ×2 (08:44→19:34)
[2024-04-06] MEDS: LOW STRENGTH ASPIRIN 81 MG PO (08:44)
[2024-04-06] MEDS: PROSCAR 5 MG PO (08:44)
[2024-04-06] MEDS: COLACE 100 MG PO ×2 (08:45→19:34)
--- NOTE | 2024-04-06 09:09 | PTCARENOTE ---
Addendum entered by Dayana Eason RN 04/06/24 10:17:
Dr. Trujillo came to see patient, repeat EKG, and will trend troponin. Dr. Jim is aware of troponin just drawn of 0.581, will trend. patient is presently CP and abd. pain free
Original Note:
at 0837 OT was in room working with patient and patient developed chest pain, nonradiating and abdominal pain, 6 out of 10, EKG obtained, patient placed on 2 LNC, and morphine 1mg IV given as ordered. TT Dr. Vincent, and notified Dr. Peterson on
unit, troponin being drawn now and will start Imdur as ordered. language line was used for language barrier.
[2024-04-06 09:54] LABS: Troponin I 0.581 ng/ml
--- NOTE | 2024-04-06 10:09 | W.PN.CD ---
Today's Communication / Plan
-
trend troponin and ecg, ambulate, TAVR team to meet patient; start atorvastatin 40 mg; possibly stable for discharge this evening pending above
Impression / Plan
-
89-year-old male with CAD / prior PCI multiple myeloma, HTN, HLD, GERD, aortic stenosis (now severe), and PUD who present to the ED with chest pain, found to have NSTEMI, now status post RAYNE to Ramus 04/04.
CAD
NSTEMI
- peak troponin 0.6
- DAPT with ASA ticag
- had episode of chest discomfort overnight (similar in nature to presenting sx but less severe) with relief from nitro/morphine, currently chest pain free, ECG stable, troponin downtrending
--> trend one more troponin to ensure downtrending
--> repeat ECG
--> ambulate to assess symptoms
HLD
- previously on statin and ezetimibe per notes, unclear why discontinued
--> restart atorvastatin 40 mg
Aortic stenosis, now moderate-severe
- moderate to severe on echo this admission
--> TAVR team to assess patient
anemia - - h/o multiple myeloma - Hb 9.9 - monitor
CKD - cr 1.4 (stable from baseline) monitor
HTN - stable continue therapy
Multiple myeloma - [place]
GERD - PPI
Physical Exam
Vital Signs/Labs
Vital Signs
Temp Pulse Resp BP Pulse Ox
36.7 C 63 18 147/75 97
04/06/24 07:19 04/06/24 08:44 04/06/24 07:19 04/06/24 08:44 04/06/24 07:19
04/05/24 04/06/24 04/07/24
06:59 06:59 06:59
Actual Weight 78.2 kg
04/06/24 04:07
04/06/24 04:07
APTT 30.8 Sec (23.4-35.0) 04/05/24 08:43
Triglycerides 111 mg/dl (10-149) 04/05/24 03:01
LDL Cholesterol, Calc 138 mg/dl 04/05/24 03:01
VLDL Cholesterol, Calc 22 mg/dl (0-30) 04/05/24 03:01
HDL Cholesterol 51 mg/dl 04/05/24 03:01
04/06/24
04:07
Pol-Y-Tshasamdtog Pept 3960
LAB Results
04/04/24 04/04/24 04/04/24
15:07 16:14 20:15
Troponin I Cancelled 0.502 H* Cancelled
04/04/24 04/05/24 04/05/24
21:21 03:01 08:43
Troponin I 0.491 H* 0.520 H* 0.768 H* D
04/05/24 04/05/24 04/06/24
14:32 19:46 09:16
Troponin I 0.736 H* 0.658 H* 0.581 H*
Physical Exam
Constitutional: No acute distress and Comfortable
Cardiovascular: Rhythm & rate is regular, Pedal edema is absent and Systolic murmur present
Respiratory: Respiratory effort normal and Lungs clear to auscul.
Neuro/Psych: Alert, Oriented and AO x 3
Other: Cath Site (cdi)
Data Reviewed
-
Date of Service: April 06, 2024
Medical Decision Making: External Notes, Reviewed Test Results, Tests Ordered and Review of Case with other Provider
EKG: Tracing Personally Visualized and interpreted
Echo: Report Reviewed by me
X-Ray/CT/US/MRI/NUC/PET: Report Reviewed by me
Medical Tests (PFT, Pathology etc): Image Personally Visualized and interpreted
Labs: Labs Reviewed by me and Labs Ordered by me
[2024-04-06] MEDS: IMDUR (EXTENDED RELEASE) 30 MG PO (10:26)
--- NOTE | 2024-04-06 10:58 | CONSULT.STRU ---
Consultation
-
Date/Time Consultation Requested: 04/06/2024
Date/Time Consultation Performed: 04/06/2024
Requesting Provider: Gary Trujillo MD
Performing Provider: LUZ Herrera
Reason for Consultation: /TAVR
Patient History
Physicians
Family Physician: Toby Mcgregor MD
Outpatient Restaurant Culinary Manager: Brittaney Bailon MD
Primary Restaurant Culinary Manager: Brittaney Bailon MD
History of Present Illness
Mr. Day is a very pleasant 89 yo male that presented to with STEMI. Patient was taken to the catheterization lab for intervention: Right dominant circulation with a 40% tapering of the proximal RCA, a 30% lesion in the distal RCA, a 30-40% in
the mid circumflex, a patent stent in proximal OM 2, a 40-50% tapering of the distal left main, a 30-40% lesion in the proximal LAD leading into in-stent restenosis, a 40% lesion in the proximal ramus and a hazy, 80% ruptured plaque in the mid
ramus, status post successful PCI (Medtronic [place] 3.0 x 18 RAYNE, postdilated with a 3.0 NC balloon) with reduction in stenosis to 0%, maintaining GROVER-3 flow. He also had an echocardiogram that is notable for an EF 55-60%, AV P/M 50/34, LUDY
0.8-0.9, pk kim 3.52, trace AI, MAC with mild MR. Trace TR with PAP 20-25. Patient has a history of multiple myeloma and is seen at [facility] (Patient's spouse provided contact information)
Discussed the pathophysiology and treatment options of aortic stenosis (Daughter Milady present, Spoke to iam Antonio (Hospitalist in [place]) on the phone) including SAVR and TAVR. Explained the evaluation process comprising of CT scan(t/c
staged d/t CKD), CT surgical consult, dental clearance, and a heart team discussion. TAVR booklet, prescriptions, contact information, and appointments given to patient. Allowed for and answered questions at bedside.
Past Medical History
Past Medical History: Angina, CAD (Recent PCI for NSTEMI), Covid-19, HTN and Other (dyslipidemia, BPH, PAD, PUD, multiple myeloma, CKD)
Past Surgical History
Past Surgical History: PCI/Stent and Other (cataract surgery)
Dental History
patient has upper and lower dentures
Family History
Mother: at Age ( during WWII)
Father: at Age (70) and Cause of (prostate cancer)
Family Medical History: CAD (7 sisters with heart disease)
Social History
Alcohol: None
Drug: None
Tobacco: Former Smoker
Personal:
Living: With Spouse
Employment: Retired
Allergies
Allergy/AdvReac Type Severity Reaction Status Date / Time
Penicillins Allergy Unknown Verified 04/04/24 13:54
Home Medications
�Medication �Instructions �Recorded �Confirmed �Type
amlodipine 5 mg tablet 5 mg PO HS Blood Clot Prevention/Tx 01/15/19 04/04/24 History
finasteride 5 mg tablet 5 mg PO DAILY Urinary Issue 01/15/19 04/04/24 History
nitroglycerin 0.4 mg sublingual 0.4 mg sublingual [id number] PRN 01/15/19 04/04/24 History
tablet chest pain
tamsulosin 0.4 mg capsule 0.4 mg PO DAILY Urinary Issue 01/15/19 04/04/24 History
alprazolam 0.25 mg tablet 0.25 mg PO TIDPRN PRN anxiety 04/04/24 04/04/24 History
bismuth subsalicylate 262 mg/15 mL 524 mg PO AC Gastrointestinal Issue 04/04/24 04/04/24 History
oral suspension (Pepto-Bismol)
bumetanide 1 mg tablet 1 mg PO DAILYPRN PRN swelling 04/04/24 04/04/24 History
clonazepam 0.5 mg tablet 0.5 mg PO HS Mental Health/Anxiety 04/04/24 04/04/24 History
doxazosin 4 mg tablet 2 mg PO BID BPH 04/04/24 04/04/24 History
famotidine 40 mg tablet 40 mg PO DAILY Gastrointestinal 04/04/24 04/04/24 History
Issue
isosorbide mononitrate 30 mg 30 mg PO DAILY Heart 04/04/24 04/04/24 History
tablet,extended release 24 hr Disease/Condition
meloxicam 15 mg tablet 15 mg PO DAILYPRN PRN mild pain 04/04/24 04/04/24 History
metoprolol succinate 50 mg 75 mg PO DAILY Heart Failure 04/04/24 04/04/24 History
tablet,extended release 24 hr
omeprazole 40 mg capsule,delayed 40 mg PO DAILY Gastrointestinal 04/04/24 04/04/24 History
release Issue
oxycodone 5 mg tablet 5 mg PO Q8HPRN PRN moderate to 04/04/24 04/04/24 History
severe pain
STS%
STS %: 9.5
Review of Systems
-
History Source: Family (Daughter Milady thompson)
General: Reports No Symptoms
HEENT: Reports No Symptoms
Respiratory: Reports DAWN
Cardiac: Reports No Symptoms
Abdomen/GI: Reports No Symptoms
: Reports No Symptoms
Musculoskeletal: Reports No Symptoms
Skin: Reports No Symptoms
Neurological: Reports No Symptoms
Vascular: Reports No Symptoms
Physical Exam
Vital Signs
Temp 98.0 F 04/06/24 07:19
Temp route: Oral 04/06/24 07:19
Pulse 63 04/06/24 08:44
Rhythm: Normal sinus rhythm 04/05/24 19:45
With- Prolonged QT interval 04/04/24 20:15
Resp Rate 18 04/06/24 07:19
Blood pressure 147/75 04/06/24 08:44
Blood pressure extremity used: Left upper arm 04/06/24 07:19
Position: Sitting 04/06/24 07:19
MAP (cuff-Radha Monitor) 93 04/06/24 03:59
SaO2 97 04/06/24 07:19
Nasal Cannula flow liters per minute 2 04/05/24 00:17
Oxygen Mode of Delivery Room air 04/06/24 08:43
Pulse Ox at Rest 98 04/06/24 08:43
Can the patient verbally communicate their pain? Yes 04/06/24 09:37
Pain scale ratin 04/06/24 09:37
Actual Weight 78.2 kg 04/05/24 06:00
Body Mass Index (BMI) 29.6 04/05/24 06:00
Supine- Blood Pressure 141/62 04/06/24 08:43
Supine- Pulse 76 04/06/24 08:43
Sitting- Blood Pressure 155/93 04/05/24 15:40
Sitting- Pulse 75 04/05/24 15:40
Standing- Pulse 99 04/06/24 08:43
Heart rate after activity 78 04/06/24 08:43
Blood pressure after activity 176/79 04/06/24 08:43
Labs
04/06/24 04:07
04/06/24 04:07
APTT 30.8 Sec (23.4-35.0) 04/05/24 08:43
Hemoglobin A1c 5.5 % (4.0-5.6) 04/04/24 21:21
Troponin I 0.581 ng/ml H* 04/06/24 09:16
Bfs-[id number]-[id number] Pept 3960 pg/ml 04/06/24 04:07
Diagnostic Studies
Cardiac Catheterization 04/04/2025:
CONCLUSIONS
1. Right dominant circulation with a 40% tapering of the proximal RCA, a 30% lesion in the distal RCA, a 30-40% in the mid circumflex, a patent stent in proximal OM 2, a 40-50% tapering of the distal left main, a 30-40% lesion in the proximal LAD
leading into in-stent restenosis, a 40% lesion in the proximal ramus and a hazy, 80% ruptured plaque in the mid ramus, status post successful PCI (Medtronic [place] 3.0 x 18 RAYNE, postdilated with a 3.0 NC balloon) with reduction in stenosis to
0%, maintaining GROVER-3 flow.
RECOMMENDATIONS:
1. Expectant management after cardiac catheterization via right radial approach.
2. Limited weight bearing on the right wrist for one week.
3. Dual antiplatelet therapy with aspirin and ticagrelor for at least 12 months, followed by aspirin indefinitely.
4. Aggressive risk factor modification.
5. Guideline directed medical therapy as hemodynamics will tolerate.
6. Echocardiogram ordered and pending.
7. Referral to cardiac rehab
Echocardiogram 04/06/2024:
CONCLUSIONS
Normal left ventricular systolic function. Left ventricular ejection fraction
is 55-60%.
Mild basal inferolateral hypokinesis.
Moderate/severe aortic stenosis. Peak gradient 50mmHg/Mean gradient 34mmHg -
using an LVOT of 1.9cm the calculated aortic valve area is 0.8-0.9cm2. Trace
aortic regurgitation.
Compared to 01/15/19: aortic sclerosis has progressed to moderate/severe .
Basal inferolateral hypokinesis now present.
Exam
General: Well Developed, Well Nourished and No Apparent Distress
HEENT: Normocephalic and Moist Mucous Membranes
Neck: Trachea Midline
Respiratory: Clear
Cardiac: Murmur (II/ RANDA)
GI: Soft, Non Tender and Non Distended
Rectal: Deferred by Provider
Skin: Warm
Neuro: Awake and Alert
Psych: Calm
Assessment / Plan
-
Aortic stenosis:
Continue TAVR evaluation
Trend creatinine after contrast
TAVR CT (t/c staged r/t CKD)
CT surgical consult (MPT 05/05)
Frailty testing and [id number] at consult
Continue aspirin + Brilinta
Dental clearance--patient wears upper and lower dentures
Heart team discussion
Data Reviewed
-
EKG: Tracing Personally Visualized and interpreted
Pricing Actuary: Report Reviewed by me and Discussed with Physician
Echo: Report Reviewed by me and Discussed with Physician
Labs: Labs Reviewed by me
Old Records: Reviewed (Dr. Bailon's office note)
Total Time Spent with Patient (in minutes): 45
[2024-04-06] MEDS: LIPITOR 40 MG PO (11:39)
--- NOTE | 2024-04-06 12:43 | W.PN.HOSP.TC ---
Today's Communication/Plan
-
TAVR team will meet patient today
If patient is asymptomatic for the remainder of today, he can be discharged
Assessment / Plan
Assessment / Plan
Physical Exam
General: Not in acute distress
HEENT: Normocephalic
Respiratory: CTAB
Cardiac: S1/S2 and Regular Rhythm
GI: Soft, Non Tender, Non Distended, Normal Bowel Sounds
Musculoskeletal: No Cyanosis and No Edema
Skin: Warm and Dry; No Rash
Neuro: Alert and Awake. Nonfocal/grossly intact and No Sensory Deficits.
Psych: Calm

Assessment/Plan
Patient is an 89-year-old male with CAD s/p PCI x 2, multiple myeloma, HTN, HLD, GERD, aortic stenosis, H/O peptic ulcer disease (H. pylori positive breath test) that presented to the ED with a complaint of chest pain. States that his chest pain
started roughly 3 to 4 weeks prior to presentation.�He denied any exertional component to his pain but did state it is worse at night.� He denied any associated shortness of breath, palpitations, lightheadedness.� Did not seem to be in any acute
distress while in the ED, nontoxic-appearing. AFVSS in the ED.� Initial labs showed hemoglobin 9.1, BUN 40, creatinine 1.3, total protein 5.9 with albumin 3.3.� Initial troponin 0.5.� Initial EKG showed sinus bradycardia though no acute ST
deviation, T wave abnormality, STEMI equivalent.� EKG was very similar to last that he had.� There was mention of some ST depressions seen on the quality assurance monitor body in the room. Was given IV fluid in the ED. Patient's daughter states that he has had
worsening symptoms of dyspepsia with bloating, belching recently. Pain initially improved, while in the ED though it subsequently returned and worsened. Cardiology planned for cardiac cath.
Upon exam the patient did have a late peaking systolic murmur consistent with aortic stenosis, soft S2 with normal upstroke. Otherwise appeared euvolemic without adventitious breath sounds.
Differential for presentation include ACS versus peptic ulcer disease symptoms.

Inpatient IVU
#NSTEMI
Troponin 0.502, will trend along with EKG
-Status post Heparin and Nitro drips
-Consult cardiology-CBC
-Continue Imdur
-Continue metoprolol succinate 75 mg daily with hold parameters
-Echo noted
-Hold current as needed Bumex ? Hx CHF
-Start Atorvastatin 40 mg daily
-Continue DAPT with Aspirin and Ticagrelor
-Rechecking EKG and troponins on 04/06/24 due to reports of chest pain
#Severe Aortic Stenosis
-TAVR team will meet patient today
#Multiple myeloma with acute on chronic anemia
-Currently gets treatment at [facility] no current treatment time past 4 months
-Follow-up outpatient
#History H. pylori-recent breath test by PCP received results 04/02/2024
-Continue IV Protonix twice daily in place of current Nexium
-Consult GI for possible treatment given H. pylori was done by breath test only -- per GI patient should only be started on the treatment outpatient physician
#HTN�benign
BP 143/65
-Resumed home Amlodipine
#Hyperlipidemia
-Continue Atorvastatin 40 mg daily
#Chronic leg pain unclear
Hold meloxicam 15 mg daily as needed
#Anxiety
-Continue alprazolam 0.25 mg p.o. 3 times daily as needed anxiety, clonazepam 0.5 mg at bedtime
#BPH
-Continue Flomax 0.4 mg daily with hold parameters
-Continue doxazosin 2 mg p.o. twice daily
#Former smoker
-Quit 20 years ago
#Obesity due to excess calorie consumption�BMI 31.4
Affects all aspects of care
Weight loss recommended
DVT prophylaxis: Foot pumps
Full code
Anticipated Discharge: Within 24 hours
Subjective/Interval History
-
Date of Service: April 06, 2024
Patient was seen and examined. He reported epigastric pain and per patient's nurse chest pain as well.
Objective Data
-
Labs:
Laboratory Results
04/06/24
04:07
WBC 7.3
Hgb 9.8 L
Hct 27.9 L
Plt Count 144
Sodium 141
Potassium 4.3
Chloride 110 H
Carbon Dioxide 19 L
BUN 37 H
Creatinine 1.4 H
Glucose 86
Calcium 8.8
Total Bilirubin 0.7
AST 29
ALT 13
Alkaline Phosphatase 68
Vital Signs:
Vital Signs
Temp Pulse Resp BP Pulse Ox
98.3 F 63 18 147/75 98
04/06/24 11:24 04/06/24 08:44 04/06/24 11:24 04/06/24 08:44 04/06/24 11:24
I&O
04/05/24 04/06/24 04/07/24
06:59 06:59 06:59
Intake Total 480 / 480
Output Total 775 / 775
Balance -775 / -775 480 / 480
--- NOTE | 2024-04-06 14:05 | CM ---
Reviewed chart. Telephone call to daughter, Milady to review [facility]. She states he would be agreeable to [facility] Sent the referral. Prior to admission he resides with his
spouse in a one story townhouse without any steps to enter. Prior to admission he was ambulates with a rolling walker. He has a SCALE MECHANIC Friday to Friday from 10:00 am to 6:00 p.m. He has a prescription plan and uses [facility]. Medical work-up
in progress. The discharge plan is to return home with his spouse and [facility] when medically stable.
[2024-04-06 16:09] LABS: Troponin I 0.557 ng/ml
--- NOTE | 2024-04-06 20:49 | PTCARENOTE ---
Pt. seen and assessed in room with family at the bedside. Pt. AOx3 no complaints of chest pain at this time. VS WNL. Tele reading NSR. Continuing patient care and monitoring the pt.
[2024-04-06] MEDS: NORVASC 5 MG PO (21:17)
[2024-04-06] MEDS: KLONOPIN 0.5 MG PO (21:17)
[2024-04-07] VITALS (9 sets, daily range): BP systolic 118–153; BP diastolic 56–86; PULSE 69–71; O2SAT 100; BMI 29.7
[2024-04-07 05:04] LABS: % Basophils 0.4 % (0-2); % Eosinophils 2.7 % (0-6); % Immature Granulocytes 0.4 % (0-0.5); % Lymphocytes 31.5 % (20.5-51.1); % Monocytes 8.3 % (1.7-9.3); % Neutrophils 56.7 % (42.2-75.2); Absolute Eosinophils 0.2 10^3/uL (0-0.7); Absolute Lymphocytes 2.2 10^3/uL (1.2-3.4); Absolute Monocytes 0.6 10^3/uL (0.1-0.6); Hematocrit 27.8 % (39.0-52.0); Hemoglobin 9.9 g/dL (13.0-18.0); Mean Corp Hgb Conc. 35.6 g/dL (33.0-37.0); Mean Corpuscular Hgb 32.7 pg (27.0-31.0); Mean Corpuscular Volume 91.7 fL (80.0-94.0); Mean Platelet Volume 10.4 fL (7.4-10.4); Nucleated Red Blood Cells % 0 % (-); Platelet Count 152 10^3/uL (130-400); Red Blood Cell Count 3.03 10^6/uL (4.70-6.10); Red Cell Dist. Width 13.4 % (11.5-14.5); White Blood Cell Count 7.1 10^3/uL (4.8-10.8)
[2024-04-07 05:31] LABS: ALT (SGPT) 12 U/L (0-50); AST (SGOT) 29 U/L (17-59); Albumin 3.7 g/dl (3.5-5.0); Alkaline Phosphatase 68 U/L (38-126); Blood Urea Nitrogen 37 mg/dl (9-20); Calcium 9.4 mg/dl (8.4-10.2); Carbon Dioxide 19 mmol/L (22-30); Chloride 110 mmol/L (98-107); Estimated Creatinine Clearance 33 ml/min; Glucose 89 mg/dl (70-99); Potassium 4.6 mmol/L (3.5-5.1); Sodium 140 mmol/L (135-145); Total Bilirubin 0.7 mg/dl (0.2-1.3); Total Protein 6.3 g/dl (6.3-8.2); eGFR 44.78
[2024-04-07] MEDS: PROTONIX IV 40 MG IV (08:13)
[2024-04-07] MEDS: IMDUR (EXTENDED RELEASE) 30 MG PO (08:13)
[2024-04-07] MEDS: NSS (PRESERVATIVE FREE) 10 ML IV (08:13)
[2024-04-07] MEDS: CARDURA 2 MG PO (08:14)
[2024-04-07] MEDS: LOW STRENGTH ASPIRIN 81 MG PO (08:14)
[2024-04-07] MEDS: TOPROL XL 75 MG PO (08:14)
[2024-04-07] MEDS: COLACE 100 MG PO (08:14)
[2024-04-07] MEDS: FLOMAX 0.4 MG PO (08:15)
[2024-04-07] MEDS: PROSCAR 5 MG PO (08:15)
[2024-04-07] MEDS: BRILINTA 90 MG PO (08:15)
[2024-04-07 08:56] LABS: ACT-LR - POC 327 Seconds (116-155)
--- NOTE | 2024-04-07 08:57 | PTCARENOTE ---
received [id number] in bed sleeping easily awakened, c/o bein constipated will TT hospitalist. monitor shows NSR, VSS. patient speaks [place]mese, language line at bedside.
--- NOTE | 2024-04-07 09:47 | W.PN.CD ---
Today's Communication / Plan
-
- Continue DAPT with ASA ticagrelor.
- Chest pain appears to be musculoskeletal.
- TAVR workup initiated; continue as outpatient.
Impression / Plan
-
89-year-old male with CAD / prior PCI multiple myeloma, HTN, HLD, GERD, aortic stenosis (now severe), and PUD who present to the ED with chest pain, found to have NSTEMI, now status post RAYNE to [facility] 04/04.
CAD
NSTEMI
- peak troponin 0.6
- Continue DAPT with ASA ticagrelor.
- had episode of chest discomfort overnight (similar in nature to presenting sx but less severe) with relief from nitro/morphine, currently chest pain free, ECG stable, troponin downtrending
- troponin downtrending
- Chest pain appears to be musculoskeletal.
HLD
- previously on statin and ezetimibe per notes, unclear why discontinued
- restarted on atorvastatin 40 mg
Aortic stenosis, now moderate-severe
- moderate to severe on echo this admission
- TAVR workup initiated; continue as outpatient.
anemia - - h/o multiple myeloma; hemoglobin stable
CKD - cr 1.4 (stable from baseline)
HTN - stable continue therapy
Multiple myeloma - [place]
GERD - PPI
Physical Exam
Vital Signs/Labs
Vital Signs
Temp Pulse Resp BP Pulse Ox
98.3 F 68 20 139/70 95
04/07/24 07:10 04/07/24 08:45 04/07/24 07:10 04/07/24 08:14 04/07/24 08:30
04/06/24 04/07/24 04/08/24
06:59 06:59 06:59
Actual Weight 78.5 kg
04/07/24 04:28
04/07/24 04:28
APTT 30.8 Sec (23.4-35.0) 04/05/24 08:43
Triglycerides 111 mg/dl (10-149) 04/05/24 03:01
LDL Cholesterol, Calc 138 mg/dl 04/05/24 03:01
VLDL Cholesterol, Calc 22 mg/dl (0-30) 04/05/24 03:01
HDL Cholesterol 51 mg/dl 04/05/24 03:01
04/06/24
04:07
Zte-P-Noigbrdpsst Pept 3960
LAB Results
04/04/24 04/04/24 04/04/24
15:07 16:14 20:15
Troponin I Cancelled 0.502 H* Cancelled
04/04/24 04/05/24 04/05/24
21:21 03:01 08:43
Troponin I 0.491 H* 0.520 H* 0.768 H* D
04/05/24 04/05/24 04/06/24
14:32 19:46 09:16
Troponin I 0.736 H* 0.658 H* 0.581 H*
04/06/24 04/06/24
15:24 21:15
Troponin I 0.557 H* Cancelled
Physical Exam
Constitutional: No acute distress and Comfortable
EENT: Anicteric
Cardiovascular: Rhythm & rate is regular, Pedal edema is absent, Systolic murmur present (4/6) and S1S2 is normal (Soft, but present S2)
Respiratory: Respiratory effort normal and Lungs clear to auscul.
GI: Soft and Non tender
Neuro/Psych: AO x 3
Other: Skin (Warm, dry, intact)
Data Reviewed
-
Date of Service: April 07, 2024
EKG: Tracing Personally Visualized and interpreted (Telemetry: Sinus rhythm)
Labs: Labs Reviewed by me
[2024-04-07] MEDS: MIRALAX 17 GRAMS PO (10:32)
--- NOTE | 2024-04-07 10:33 | PTCARENOTE ---
patient had BM this am, refused ducalox and took miralax.
--- NOTE | 2024-04-07 11:17 | PN.CDI ---
CDI
- -
CDI:
Physician Documentation Request
Admit Date: 04/04/24 18:56
Dear Doctor Kristen,
Please review the following and provide your response in the progress notes.
Clinical Indicators:
Pt admitted with NSTEMI and aortic stenosis.
04/06 Cardiology note: 'CKD - cr 1.4 (stable from baseline) monitor.'
Laboratory Tests
04/04/24 04/06/24 04/07/24
16:51 04:07 04:28
Creatinine 1.3 1.4 H 1.5 H
Estimated Creat Clear 39 35 33
Please clarify which of the following accurately represents the patient's renal status:
CKD, please provide stage - see criteria
Other
Stages of Chronic Kidney Disease*
Level Description GFR
G1 Normal or High >90
G2 Mildly decreased 60-89
G3a Mildly to moderately decreased 45-59
G3b Moderately to severely decreased 30-44
G4 Severely decreased 15-29
G5 Kidney failure <15
Use of terms such as suspected, likely, concern for, or probable (associated with a specific diagnosis that is being evaluated, monitored, or treated as if it exists) are acceptable and can be coded in the inpatient setting, when documented at the
time of discharge.
Thank you,
Angelica Rivera RN, BSN
CDI Specialist
Available via [employer]
Please use your independent medical judgment in providing your response.
*Source: Kidney Disease: Improving Global Outcomes (KDIGO) 2012
--- NOTE | 2024-04-07 11:28 | W.PN.HOSP.TC ---
Today's Communication/Plan
-
Discharge today
Assessment / Plan
Assessment / Plan
Physical Exam
General: Not in acute distress
HEENT: Normocephalic
Respiratory: CTAB
Cardiac: S1/S2 and Regular Rhythm
GI: Soft, Non Tender, Non Distended, Normal Bowel Sounds
Musculoskeletal: No Cyanosis and No Edema
Skin: Warm and Dry; No Rash
Neuro: Alert and Awake. Nonfocal/grossly intact and No Sensory Deficits.
Psych: Calm

Assessment/Plan
Patient is an 89-year-old male with CAD s/p PCI x 2, multiple myeloma, HTN, HLD, GERD, aortic stenosis, H/O peptic ulcer disease (H. pylori positive breath test) that presented to the ED with a complaint of chest pain. States that his chest pain
started roughly 3 to 4 weeks prior to presentation.�He denied any exertional component to his pain but did state it is worse at night.� He denied any associated shortness of breath, palpitations, lightheadedness.� Did not seem to be in any acute
distress while in the ED, nontoxic-appearing. AFVSS in the ED.� Initial labs showed hemoglobin 9.1, BUN 40, creatinine 1.3, total protein 5.9 with albumin 3.3.� Initial troponin 0.5.� Initial EKG showed sinus bradycardia though no acute ST
deviation, T wave abnormality, STEMI equivalent.� EKG was very similar to last that he had.� There was mention of some ST depressions seen on the shelter monitor in the room. Was given IV fluid in the ED. Patient's daughter states that he has had
worsening symptoms of dyspepsia with bloating, belching recently. Pain initially improved, while in the ED though it subsequently returned and worsened. Cardiology planned for cardiac cath.
Upon exam the patient did have a late peaking systolic murmur consistent with aortic stenosis, soft S2 with normal upstroke. Otherwise appeared euvolemic without adventitious breath sounds.
Differential for presentation include ACS versus peptic ulcer disease symptoms.

Inpatient IVU
#NSTEMI
Troponin 0.502, will trend along with EKG
-Status post Heparin and Nitro drips
-Consult cardiology-CBC
-Continue Imdur
-Continue metoprolol succinate 75 mg daily with hold parameters
-Echo noted
-Hold current as needed Bumex ? Hx CHF
-Start Atorvastatin 40 mg daily
-Continue DAPT with Aspirin and Ticagrelor
-Rechecking EKG and troponins on 04/06/24 due to reports of chest pain
#Severe Aortic Stenosis
-TAVR team met patient and will continue work-up outpatient
#Multiple myeloma with acute on chronic anemia
-Currently gets treatment at [facility] no current treatment time past 4 months
-Follow-up outpatient
#Concern for CKD Stage 3
#Metabolic Acidosis
-Discussed with on-call nephrology on 04/07/24
-Sodium bicarb 650 mg daily on discharge
-Follow-up with [facility] outpatient
#History H. pylori-recent breath test by PCP received results 04/02/2024
-Continue IV Protonix twice daily in place of current Nexium
-Consult GI for possible treatment given H. pylori was done by breath test only -- per GI patient should only be started on the treatment outpatient physician
#HTN�benign
BP 143/65
-Resumed home Amlodipine
#Hyperlipidemia
-Continue Atorvastatin 40 mg daily (previously on statin and ezetimibe per notes, unclear why discontinued)
#Chronic leg pain unclear
Hold meloxicam 15 mg daily as needed
#Anxiety
-Continue alprazolam 0.25 mg p.o. 3 times daily as needed anxiety, clonazepam 0.5 mg at bedtime
#BPH
-Continue Flomax 0.4 mg daily with hold parameters
-Continue doxazosin 2 mg p.o. twice daily
#Former smoker
-Quit 20 years ago
#Obesity due to excess calorie consumption�BMI 31.4
Affects all aspects of care
Weight loss recommended
DVT prophylaxis: Foot pumps
Full code
More than 30 minutes spent in discharge including
Final examination of the patient
Summarizing hospital stay
Instructions for continuing care to all relevant caregivers
Preparation of discharge records, prescriptions, and referral forms
Total time spent (in minutes): 37
Anticipated Discharge: Today
Subjective/Interval History
-
Date of Service: April 07, 2024
Patient was seen and examined. He denied any new symptoms or complaints, still with some epigastric discomfort however.
Objective Data
-
Labs:
Laboratory Results
04/07/24
04:28
WBC 7.1
Hgb 9.9 L
Hct 27.8 L
Plt Count 152
Sodium 140
Potassium 4.6
Chloride 110 H
Carbon Dioxide 19 L
BUN 37 H
Creatinine 1.5 H
Glucose 89
Calcium 9.4
Total Bilirubin 0.7
AST 29
ALT 12
Alkaline Phosphatase 68
Vital Signs:
Vital Signs
Temp Pulse Resp BP Pulse Ox
98.3 F 68 20 139/70 95
04/07/24 07:10 04/07/24 08:45 04/07/24 07:10 04/07/24 08:14 04/07/24 08:30
I&O
04/06/24 04/07/24 04/08/24
06:59 06:59 06:59
Intake Total 480 / 480 220 / 220
Balance 480 / 480 220 / 220
[2024-04-07] MEDS: SODIUM BICARBONATE 650 MG PO (11:42)
--- NOTE | 2024-04-07 12:38 | CM ---
Reviewed chart. Met with And Mrs. Day and his daughter to review discharge plans. Mr. Day is ready for discharge today. We reviewed [facility] and he is agreeable to their service. Prior to admission he resides with his spouse
in a one story [facility] [address] without any steps to enter. Prior to admission he ambulates with a rolling walker. He has a TOWN MANAGER that comes in Friday to Friday from 10:00 a.m. to 6:00 p.m. He has a prescription plan and uses [facility]. Medical
work-up in progress. The discharge plan is to return home with his spouse and [facility] when medically stable.
--- NOTE | 2024-04-07 16:51 | PTCARENOTE ---
D/C instructions given to daughter that translated to her father and mother, all verbalized understanding. INT x 2 D/C'd, telemetry d/C'd, personal belongings packed and sent home with patient. D/C to home via wc accompanied by staff. D/C
instructions were faxed to [facility] by unit clerk.
== END 2024-04-07 17:01 | disposition home health service (06) | DRG 322 ==
LOC: IVU 18:56
PROVIDERS: Clinical Nurse Specialist Family Health; Internal Medicine Cardiovascular Disease; Registered Nurse; ADMITTING PHYSICIAN Internal Medicine; ATTENDING PHYSICIAN Hospitalist; CONSULT PHYSICIAN Internal Medicine; EMERGENCY PHYSICIAN Emergency Medicine; FAMILY PHYSICIAN Internal Medicine
PROC: B2111ZZ Fluoroscopy of Multiple Coronary Arteries using Low Osmolar Contrast (ICD-10-PCS; 2024-04-04)
PROC: 027034Z Dilation of Coronary Artery, One Artery with Drug-eluting Intraluminal Device, Percutaneous Approach (ICD-10-PCS; 2024-04-04)
PROC: 4A023N6 Measurement of Cardiac Sampling and Pressure, Right Heart, Percutaneous Approach (ICD-10-PCS; 2024-04-04)
DX: I21.3 ST elevation (STEMI) myocardial infarction of unspecified site (principal); C90.00 Multiple myeloma not having achieved remission; I13.0 Hypertensive heart and chronic kidney disease with heart failure and stage 1 through stage 4 chronic kidney disease, or unspecified chronic kidney disease; E87.20 Acidosis, unspecified; Z87.891 Personal history of nicotine dependence; I50.9 Heart failure, unspecified; N18.9 Chronic kidney disease, unspecified; K21.9 Gastro-esophageal reflux disease without esophagitis; D64.9 Anemia, unspecified; F41.9 Anxiety disorder, unspecified; E78.00 Pure hypercholesterolemia, unspecified; N18.30 Chronic kidney disease, stage 3 unspecified
CPT/HCPCS: 71045; 76700; 80053; 80061; 83036; 83880; 84484; 85025; 85347; 85730; 93005; 93306; 93454; 96361; 96374; 96375; 97116; 97162; 97166; 97530; 99291; C1725; C1874; C1894; C9600; Q9967

== ENCOUNTER 2024-04-10 13:37 | Emergency (ER) | payer MEDICARE, OTHER, SELFPAY ==
[2024-04-10 13:48] VITALS: BP 117/59
--- NOTE | 2024-04-10 14:11 | ED.GENMED ---
History of Present Illness
General
Chief Complaint: Chest Pain
Source: patient
Exam Limitations: none
Time Seen by Provider: 04/10/24 14:09
Nursing documentation reviewed up to this point in time: agreed with
History of Present Illness
History of Present Illness:
The patient is a pleasant 89-year-old man with a past medical history of coronary artery disease he reports that while sitting on his computer yesterday evening, he developed upper abdominal pain rating into his chest and back. Patient reports that
he took nitroglycerin which seemed to mildly help the pain. Patient reports the pain came back more intensely, prompting him to take OxyContin last night at around midnight as well as early this morning. Patient reports that the pain is currently
3-4 out of 10 and located in his upper abdomen. Patient also reports mild shortness of breath. Patient reports he was recently in the hospital for a heart attack. He reports he has been taking his medication as prescribed. He denies leg pain and
leg swelling. He denies a history of PE and DVT.
Past History
Past History
ED Past Medical History: CAD, Cancer (Multiple Myeloma), GERD, HTN, Hypercholesterolemia and Other (Angina, Ulcers)
ED Past Surgical History: Cardiac (Stents X2)
Social History
Tobacco: Former smoker
Alcohol: None
Drug: None
Personal:
Living: with family
Employment: Other
Family History
Family History: Other (Sister with [place], multiple sisters with hypertension)
Review of Systems
Review of Systems
Allergies reviewed?: Yes
Other source history: family
All Other Systems: ROS reviewed and negative except as documented in HPI and ROS
Constitutional: Reports no symptoms
EENT: Reports no symptoms
Respiratory: Reports trouble breathing
Cardiac: Reports chest pain
ABD/GI: Reports abdominal pain
: Reports no symptoms
Musculoskeletal: Reports no symptoms
Skin: Reports no symptoms
Neurological: Reports no symptoms
Hematologic/Lymphatic: Reports no symptoms
Psychiatric: Reports no symptoms
Phy Exam
Physical Exam
Physical Exam:
Physical Exam
General: Patient appears slightly anxious but no acute distress
Neck: supple. no meningeal signs. normal psoterior pharynx
Heart: s1/s2 regular rate and rhythm, systolic ejection murmur. equal radial pulses.
Lungs: no acute respiratory distress. clear bilaterally
Abdomen: normal bowel sounds. not tender. no CVAT
Neuro: alert and oriented. no focal neurological deficits
Skin: no rash
Psychiatric: well kept. interactive and cooperative
Extremities: no edema. no calf tenderness. negative homans. good distal pulses
Scores
Heart Score for Chest Pain Patients
STEMI patient?: No
History: Slightly or Non-Suspicious
ECG: Nonspecific Repolarization
Age: >/= 65 years
Risk Factors: >/= 3 Risk Factors or History of CAD
Troponin: </= Normal Limit
Heart Score for Chest Pain Patients: 5
Heart Score Risk: 20.3% MACE over next 6 weeks
Course
Orders/Labs/Results
Orders:
Orders
04/10/24 13:53
Electrocardiogram (*1) Urgent
Reason for Study: Chest Pain
EKG- Treatment ONCE
04/10/24 14:20
Complete Blood Count/With Diff Urgent
Comprehensive Metabolic Panel Urgent
Lipase Urgent
Comment: ADD ON
Troponin I Urgent
04/10/24 14:28
Add On- LAB Urgent
Tests Added?: lipase
04/10/24 14:31
Mag Hydrox/Al Hydrox/Simeth [Maalox] 30 ml Phenobarb/Hyoscy/Atropine/Scop [] 10 ml Viscous Lidocaine 2% [Xylocaine Viscous Cup] 10 ml PO NOW
04/10/24 14:59
Mag Hydrox/Al Hydrox/Simeth [Maalox] 30 ml .ROUTE .STK-MED ONE
Phenobarb/Hyoscy/Atropine/Scop [] 10 ml .ROUTE .STK-MED ONE
Viscous Lidocaine 2% [Xylocaine Viscous Cup] 15 ml .ROUTE .STK-MED ONE
04/10/24 15:20
CR Chest - 2 Views Urgent
Comment:
Reason For Exam: CP
04/10/24 16:09
NT-proBNP Urgent
Comment: ADD ON
Troponin I Urgent
04/10/24 16:26
Add On- LAB Urgent
Tests Added?: Pro-BNP
Abnormal Lab Results
04/10/24 04/10/24
14:20 16:09
RBC 2.99 L 10^6/uL
(4.70-6.10)
Hgb 9.7 L g/dL
(13.0-18.0)
Hct 27.8 L %
(39.0-52.0)
MCH 32.4 H pg
(27.0-31.0)
BUN 38 H mg/dl
(9-20)
Creatinine 1.5 H mg/dL
(0.7-1.3)
Glucose 103 H mg/dl
(70-99)
Troponin I 0.180 H* ng/ml 0.179 H* ng/ml
04/10/24 14:20
04/10/24 14:20
Vital Signs
Initial and Last Documented VS:
Initial Vital Signs
Temp Pulse Resp BP Pulse Ox
98.9 F 64 16 117/59 98
04/10/24 13:48 04/10/24 13:48 04/10/24 13:48 04/10/24 13:48 04/10/24 13:48
Last Documented Vital Signs
Temp Pulse Resp BP Pulse Ox
98.9 F 50 12 112/64 97
04/10/24 13:48 04/10/24 17:15 04/10/24 17:15 04/10/24 17:00 04/10/24 17:15
MDM/Problems Addressed
Differential Diagnosis Includes:
Acute coronary syndrome, PE, aortic dissection, gastritis, acute cholecystitis
MDM/Problems Addressed:
Patient presents with acute epigastric and chest pain
Chronic conditions affecting care: CAD
Acute Exacerbation and/or Progression of Chronic Illness:
Patient may have acute exacerbation of coronary artery disease
Acute Exacerbation and/or Progression of Chronic Illness: CAD
*Radiology
Radiology exam reviewed: preliminary read by ED provider (Cardiomegaly. Chest x-ray reviewed by me. No acute disease) and radiology read reviewed
*Pulse Oximetry
Patient hypoxic: no
*EKG
Interpreted by ED Provider?: Yes
Interpretation: abnormal
Comparison EKG: no changes
Rate: bradycardiac
Rhythm: sinus
[place]: left axis deviation
Interval: normal interval
QRS Pattern: normal QRS
Ischemia: non-specific ST changes
*Director Business Integration Interpretation
Rate: normal
Interpretation: normal
Rhythm: sinus
*Critical Care Note
Total Time (30-74mins, 75-104mins- exclusive of procedures): Not Applicable
Data Reviewed
Review of Other/Old Records Reveals: Radiology Studies (Abdominal ultrasound reviewed from 04/04/2024 which showed a normal gallbladder) and Testing (Cardiac catheterization reviewed from 04/04/2024 that showed stenosis and stent placement)
Source: patient and family
Patient Management
Social determinants of health affecting care: Living situation and Strong social support
Escalation/DeEscalation of care consider admission/obs:
5:00 PM patient reports that the GI cocktail helped substantially. He is resting comfortably without any pain. Troponins are decreasing in value so it is doubtful he is actively having acute coronary syndrome. Patient symptoms are likely due to
gastritis. Given that patient just had an ultrasound done of his abdomen, I do not think we need to redo this especially given that his LFTs and lipase are normal. Patient's proBNP is elevated, however, improved from prior. Patient is breathing
comfortably with normal pulse ox. Patient instructed to follow-up with his console assembler.
Update Note
Update Note:
Second EKG read by me. Sinus bradycardia. Unchanged from previous EKG. Left axis deviation with nonspecific ST segments. No acute ischemia.
ED Attending Note
-
Portions of this chart may have been created with voice recognition software.� Occasional wrong word or��sound alike� substitutions may have occurred due to the inherent limitations of voice recognition software.
Discharge Plan
Departure
Patient Disposition: Home (Routine Discharge)
Date of Disposition: 04/10/24
Time of Disposition: 17:18
Patient with high blood pressure during this ER visit?: No
Condition: Good
Covid-19: Not Applicable
Discharge Problem:
Abdominal pain, epigastric
Instructions: [place] Diet, Gastritis ED, Chest Pain CBC Follow Up
Prescriptions:
New
sucralfate [Carafate] 100 mg/mL suspension
10 ml PO ACHS 7 Days Qty: 280 0RF
No Action
amlodipine 5 MG tablet
5 mg PO HS
tamsulosin 0.4 MG capsule
0.4 mg PO DAILY
nitroglycerin 0.4 MG tablet, sublingual
0.4 mg sublingual [id number] PRN (Reason: chest pain)
finasteride 5 MG tablet
5 mg PO DAILY
metoprolol succinate 50 mg tablet extended release 24 hr
75 mg PO DAILY
famotidine 40 mg tablet
40 mg PO DAILY
isosorbide mononitrate 30 mg tablet extended release 24 hr
30 mg PO DAILY
clonazepam 0.5 mg tablet
0.5 mg PO HS
Patient Comments:
04/10/2024: last filled 03/11/24, 60 tabs for 60 days from [facility]
alprazolam 0.25 mg tablet
0.25 mg PO TIDPRN PRN (Reason: anxiety)
Patient Comments:
04/10/2024: last filled 03/12/24, 30 tabs for 10 days from [facility]
doxazosin 4 mg tablet
2 mg PO BID
bumetanide 1 mg tablet
1 mg PO DAILYPRN PRN (Reason: swelling)
oxycodone 5 mg tablet
5 mg PO Q8HPRN PRN (Reason: moderate to severe pain)
Patient Comments:
04/10/2024: last filled 03/11/24, 30 tabs for 7 days from [facility]
Brilinta 90 mg Tablet
90 mg PO BID Qty: 60 11RF
docusate sodium 100 mg Capsule
100 mg PO BID Qty: 30 0RF
atorvastatin 40 mg Tablet
40 mg PO QPM Qty: 30 11RF
aspirin 81 mg Tablet,Chewable
81 mg PO DAILY Qty: 30 11RF
polyethylene glycol 3350 [HealthyLax] 17 gram Powder In Packet
17 g PO DAILY Qty: 14 0RF
sodium bicarbonate 650 mg Tablet
650 mg PO DAILY Qty: 20 0RF
pantoprazole 40 mg tablet,delayed release (DR/EC)
40 mg PO Q12H Qty: 60 0RF
Referrals:
Toby Mcgregor MD [Family Provider] -
Interventions
Interventions:
*General Assessment Last Done: 04/10/24 14:19
ED- Fall Risk Assessment Last Done: 04/10/24 14:17
*Nursing Disposition Last Done: 04/10/24 17:42
ED- Cardiac Assessment Last Done: 04/10/24 14:17
Discharge Date and Time
Discharge Date/Time: 04/10/24 17:43
Print Language: TURKISH
[2024-04-10 14:19] VITALS: BP 156/74
[2024-04-10 14:52] LABS: ALT (SGPT) 13 U/L (0-50); AST (SGOT) 31 U/L (17-59); Albumin 4.1 g/dl (3.5-5.0); Alkaline Phosphatase 63 U/L (38-126); Blood Urea Nitrogen 38 mg/dl (9-20); Calcium 9.6 mg/dl (8.4-10.2); Carbon Dioxide 24 mmol/L (22-30); Chloride 104 mmol/L (98-107); Glucose 103 mg/dl (70-99); Sodium 141 mmol/L (135-145); Total Bilirubin 0.6 mg/dl (0.2-1.3); Total Protein 6.8 g/dl (6.3-8.2); eGFR 44.78
[2024-04-10 15:00] VITALS: BP 135/67
[2024-04-10] MEDS: MAALOX 50 PO (15:00)
[2024-04-10 15:01] LABS: Hematocrit 27.8 % (39.0-52.0); Hemoglobin 9.7 g/dL (13.0-18.0); Mean Corp Hgb Conc. 34.9 g/dL (33.0-37.0); Mean Corpuscular Hgb 32.4 pg (27.0-31.0); Mean Platelet Volume 10.2 fL (7.4-10.4); Platelet Count 175 10^3/uL (130-400); Red Blood Cell Count 2.99 10^6/uL (4.70-6.10); Red Cell Dist. Width 13.4 % (11.5-14.5); White Blood Cell Count 6.7 10^3/uL (4.8-10.8)
[2024-04-10 15:06] LABS: Lipase 84 U/L (23-300)
[2024-04-10 15:36] LABS: % Basophils 0.4 % (0-2); % Immature Granulocytes 0.4 % (0-0.5); % Lymphocytes 30.9 % (20.5-51.1); % Monocytes 7.9 % (1.7-9.3); % Neutrophils 57.4 % (42.2-75.2); Absolute Eosinophils 0.2 10^3/uL (0-0.7); Absolute Lymphocytes 2.1 10^3/uL (1.2-3.4); Absolute Monocytes 0.5 10^3/uL (0.1-0.6); Absolute Neutrophils 3.9 10^3/uL (1.4-6.5); Nucleated Red Blood Cells % 0 % (-)
[2024-04-10 16:00] VITALS: BP 131/61
[2024-04-10 16:57] LABS: Troponin I 0.179 ng/ml
[2024-04-10 17:00] VITALS: BP 112/64
[2024-04-10 17:03] LABS: NT-proBNP 2210 pg/ml
== END 2024-04-10 17:43 | disposition home or self-care (01) ==
LOC: EMR 13:37
PROVIDERS: EMERGENCY PHYSICIAN Emergency Medicine; FAMILY PHYSICIAN Internal Medicine
DX: R10.13 Epigastric pain (principal); R06.02 Shortness of breath; R07.9 Chest pain, unspecified; M54.9 Dorsalgia, unspecified; I51.7 Cardiomegaly; I25.10 Atherosclerotic heart disease of native coronary artery without angina pectoris; K21.9 Gastro-esophageal reflux disease without esophagitis; I10 Essential (primary) hypertension; I20.9 Angina pectoris, unspecified; E78.00 Pure hypercholesterolemia, unspecified; I25.2 Old myocardial infarction; Z95.5 Presence of coronary angioplasty implant and graft; Z87.891 Personal history of nicotine dependence; Z85.79 Personal history of other malignant neoplasms of lymphoid, hematopoietic and related tissues
CPT/HCPCS: 99284; 71046; 80053; 83690; 83880; 84484; 85025; 93005

== ENCOUNTER 2024-04-18 13:40 | Inpatient (IN) | payer MEDICARE, OTHER, SELFPAY ==
[2024-04-18] VITALS (27 sets, daily range): BP systolic 106–160; BP diastolic 61–88; BMI 29.7; BMI 29.3
[2024-04-18] MEDS: LOW STRENGTH ASPIRIN 324 MG PO (10:54)
[2024-04-18] MEDS: NITROSTAT (SUBLINGUAL) 0.4 MG SL ×3 (10:55→11:21)
[2024-04-18] MEDS: ZOFRAN 4 MG IV (11:00)
[2024-04-18] MEDS: MORPHINE SULFATE 4 MG IV (11:03)
[2024-04-18 11:09] LABS: % Basophils 0.3 % (0-2); % Eosinophils 0.2 % (0-6); % Immature Granulocytes 0.3 % (0-0.5); % Monocytes 5.6 % (1.7-9.3); % Neutrophils 78.6 % (42.2-75.2); Absolute Lymphocytes 1.4 10^3/uL (1.2-3.4); Absolute Monocytes 0.5 10^3/uL (0.1-0.6); Absolute Neutrophils 7.4 10^3/uL (1.4-6.5); Hemoglobin 10.2 g/dL (13.0-18.0); Mean Corp Hgb Conc. 35.2 g/dL (33.0-37.0); Mean Corpuscular Hgb 32.2 pg (27.0-31.0); Mean Corpuscular Volume 91.5 fL (80.0-94.0); Nucleated Red Blood Cells % 0 % (-); Platelet Count 182 10^3/uL (130-400); Red Blood Cell Count 3.17 10^6/uL (4.70-6.10); Red Cell Dist. Width 12.8 % (11.5-14.5); White Blood Cell Count 9.4 10^3/uL (4.8-10.8)
[2024-04-18 11:25] LABS: ALT (SGPT) 14 U/L (0-50); AST (SGOT) 32 U/L (17-59); Albumin 4.2 g/dl (3.5-5.0); Alkaline Phosphatase 66 U/L (38-126); Blood Urea Nitrogen 44 mg/dl (9-20); Calcium 9.4 mg/dl (8.4-10.2); Carbon Dioxide 18 mmol/L (22-30); Chloride 104 mmol/L (98-107); Estimated Creatinine Clearance 27 ml/min; Glucose 137 mg/dl (70-99); Potassium 4.4 mmol/L (3.5-5.1); Sodium 138 mmol/L (135-145); Total Bilirubin 0.7 mg/dl (0.2-1.3); eGFR 35.98
[2024-04-18 11:31] LABS: Troponin I 0.381 ng/ml
[2024-04-18] MEDS: HEPARIN 4000 UNITS IV (11:39)
[2024-04-18] MEDS: MORPHINE SULFATE 2 MG IV (11:41)
[2024-04-18] MEDS: NITROGLYCERIN PREMIX 250 IV (11:44)
[2024-04-18] MEDS: PLAVIX 600 MG PO (11:44)
--- NOTE | 2024-04-18 11:45 | ED.GENMED ---
History of Present Illness
General
Chief Complaint: Abdominal Pain
Time Seen by Provider: 04/18/24 10:50
History of Present Illness
History of Present Illness:
89-year-old male history of hypertension, hyperlipidemia, H. pylori, multiple myeloma, CAD with recent stent on 04/05/2024 presenting with substernal/epigastric nonradiating pressure starting yesterday with associated nausea, vomiting, and shortness
of breath. Family states that patient was unable to take Brilinta and aspirin yesterday secondary to vomiting. Patient states that he was seen here 2 weeks ago for heart attack, had cardiac stents placed at that time. Patient states that this
feels similar to initial heart attack presentation 2 weeks ago. Patient states that he took oxycodone and morphine with no relief. Patient states he just started taking antibiotics for H. pylori yesterday. Patient is Spanish-speaking only, family
used at bedside for interpretation.
Past History
Past History
ED Past Medical History: CAD, Cancer (Multiple Myeloma), GERD, HTN, Hypercholesterolemia and Other (Angina, Ulcers)
ED Past Surgical History: Cardiac (Stents X2)
Social History
Tobacco: Former smoker
Alcohol: None
Drug: None
Personal:
Living: with family
Employment: Other
Family History
Family History: Other (Sister with [place], multiple sisters with hypertension)
Phy Exam
Physical Exam
Physical Exam:
General: Alert, acute distress secondary to pain
Head: NCAT
Eyes: clear conjunctiva
Neck: supple
Cardiac: regular rate and rhythm. + murmur. 2+ radial and DP pulses bilaterally
Lungs: clear to auscultation bilaterally. No wheezes, rales, or rhonchi. Speaking full unlabored sentences.
Abdomen: soft, nondistended, epigastric tenderness to palpation. No rebound or guarding.
MSK: no lower extremity edema bilaterally. No deformity
Skin: warm, dry
Neuro: Alert and oriented x3. no focal deficits
Course
Orders/Labs/Results
Orders:
Orders
04/18/24
Electrocardiogram (*1) Stat
Reason for Study: Chest Pain
Comment: DONE
04/18/24 Breakfast
Clear Liquid
At Your Request: Limited Participation
04/18/24 10:35
ECG [Electrocardiogram (*1)] Urgent
Reason for Study: Chest Pain
EKG- Treatment ONCE
04/18/24 10:50
Complete Blood Count/With Diff Urgent
Comprehensive Metabolic Panel Urgent
Lipase Urgent
Comment: ADD ON
NT-proBNP Urgent
Troponin I Urgent
04/18/24 10:53
Aspirin Chewable [Low Strength Aspirin] 324 mg PO NOW STA
Nitroglycerin Sublingual [Nitrostat (Sublingual)] 0.4 mg SL NOW STA
04/18/24 10:58
Ondansetron Injectable [Zofran] 4 mg .ROUTE .STK-MED ONE
04/18/24 10:59
Ondansetron Injectable [Zofran] 4 mg IV NOW STA
04/18/24 11:01
Morphine Sulfate 4 mg .ROUTE .STK-MED ONE
Portable Chest Xray [CR Chest Portable - 1 View] Urgent
Comment:
Reason For Exam: chest pain
Reason Study Needs to be Portable: Patient Unstable
04/18/24 11:02
Add On- LAB Urgent
Tests Added?: lipase
Morphine Sulfate 4 mg IV NOW STA
04/18/24 11:08
HYDROmorphone [Dilaudid] 0.5 mg .ROUTE .STK-MED ONE
04/18/24 11:16
Nitroglycerin Sublingual [Nitrostat (Sublingual)] 0.4 mg SL NOW STA
04/18/24 11:21
Nitroglycerin Sublingual [Nitrostat (Sublingual)] 0.4 mg SL NOW STA
04/18/24 11:34
Morphine Sulfate 2 mg .ROUTE .STK-MED ONE
04/18/24 11:35
Nitroglycerin 100 mg/250 ml [Nitroglycerin Premix] 100 mg in 250 ml .ROUTE .STK-MED
Ondansetron Injectable [Zofran] 4 mg .ROUTE .STK-MED ONE
04/18/24 11:36
Heparin 5,000 units .ROUTE .STK-MED ONE
04/18/24 11:37
Heparin 4,000 units IV NOW STA
04/18/24 11:45
Clopidogrel Bisulfate [Plavix] 600 mg .ROUTE .STK-MED ONE
04/18/24 11:57
Morphine Sulfate 2 mg IV NOW STA
04/18/24 12:00
Nitroglycerin 100 mg/250 ml [Nitroglycerin Premix] 100 mg in 250 ml IV PER PROTOCOL
Initial dose in mcg/min, then titrate:: 5
Titrate to keep:: Chest Pain Free
Titrate by mcg/min:: 5 mcg/min, may increase by 10 mcg/min if dose > 20 mcg/min
Frequency of titrations (minutes):: every 3-5 minutes
Maximum dose in mcg/min:: 200
Begin to taper infusion when:: Remained at goal for 2hrs
Taper by mcg/min:: 5 mcg/min
Frequency of taper (minutes) if patient maintains goal:: 30
Taper to off?: Yes
If infusion off & no longer maintaining goal:: Contact Provider
04/18/24 12:07
Clopidogrel Bisulfate [Plavix] 600 mg PO NOW STA
04/18/24 12:[address] Non Medication Order As Directed
Physician Order: PTT 6 hours after initial start of Heparin infusion
Above order entered?: Yes
04/18/24 12:15
Heparin 38133 Units/250 ml 25,000 units in 250 ml IV PER PROTOCOL
Weight to be used for heparin protocol in kilograms (kg):: 78.4
Protocol:: Cardiac Tx/Acute Coronary
PTT Goal Range to be used:: PTT 73 to 111 seconds
Order type:: Initial
INITIAL Infusion Dose (UNITS/KG/hr) & then follow protocol:: 12 units/kg/hr
Infusion Dose in UNITS/hr & then follow protocol (UNITS/hr):: 950
INFUSION RATE in mL/hr & then follow protocol (mL/hr):: 9.5
PTT less than or equal to 64 seconds:: Increase rate by 200 units/hr (+ 2 mL/hr)
PTT 64.1 to 72.9 seconds:: Increase rate by 100 units/hr (+ 1 mL/hr)
PTT 73 to 111 seconds:: Target Range. No change in rate.
PTT 111.1 to 130.9 seconds:: Decrease rate by 100 units/hr (- 1 mL/hr)
PTT 131 to 199.9 seconds:: HOLD for 1 hr. Then decrease rate by 200 units/hr (- 2 mL/hr)
PTT greater than or equal to 200 seconds:: HOLD for 2 hrs & Notify Provider. Then decrease by 200 units/hr (-
2 mL/hr)
Lab follow-up:: Each change, PTT q6h until 2 consecutive are therapeutic. Then PTT
daily.
04/18/24 12:24
PTT Routine
04/18/24 13:09
Admit/Transfer Patient As Directed
Co-Sign Provider:
Level of Care: Inpatient admission
Assign to:: IVU
Physician / Group: Shelbi
Diagnosis: NSTEMI
Reason for Hospitalization: heparin drip, nitro drip
Expected length of stay greater than two midnights?: Yes
ELOS- Estimated Length of Stay in days: 3
I certify the patient meets the requirements for IP care: Yes
PRN Pain Medication Management As Directed
May give lesser potent ordered pain med per pt: Yes
preference::
Protocol:: Medication orders for pain may be administered in a
manner that supports deferring to patient preference
when the pt is:
- Requesting an ordered lesser potent pain medication.
Least to most potent pain medications are defined
as: acetaminophen < NSAID < tramadol < opioids
(morphine, oxycodone, hydromorphone).
- Requesting a lesser dose of the same medication IF
ORDERED.
- Requesting a less intrusive route of administration
if both routes are prescribed by the provider (PO <
IV).
04/18/24 13:13
Add On- LAB Stat
Tests Added?: BNP
04/18/24 13:14
Code Status As Directed
Resuscitation Status: Full Code
04/18/24 14:32
Acetaminophen [Tylenol] 650 mg PO Q4HPRN PRN
Alprazolam [Xanax] 0.25 mg PO TIDPRN PRN
Oxycodone [Roxicodone] 5 mg PO Q8HPRN PRN
Trimethobenzamide [Tigan] 200 mg IM Q6HPRN PRN
04/18/24 14:32
CARDIOLOGY CONSULT Routine
Consulting Provider: Gulshan Salmeron
Was physician already notified: Yes
GASTROINTESTINAL CONSULT Routine
Consulting Provider: Viri Braxton
Was physician already notified: Yes
Heparin Protocol- PTT Orders As Directed
PTT per Heparin protocol: -Obtain CBC and baseline PTT - if not already collected.
-Obtain PTT 6 hours from start of infusion. Then, every 6 hours until 2 consecutive
PTT's are therapeutic. Then, PTT Daily.
-With each rate change, obtain PTT every 6 hours until 2 consecutive PTT's are
therapeutic. Then, PTT Daily.
Activity As Directed
Activity Level: Out of Bed- Chair
I&O [Intake/ Output] As Directed
Frequency: q12h
Notify MD As Directed
Notify physician if: PTT is greater than or equal to 200.
Vital Signs As Directed
Frequency: Per unit guidelines
Weight As Directed
Frequency: Daily
Ot Eval And Treat Routine
Pt Eval And Treat Routine
Activity Level: Out of Bed- Ad Divya
04/18/24 16:30
Sucralfate Suspension [Carafate Suspension] 1 gm PO ACHS
04/18/24 17:00
Troponin I Q6H
04/18/24 18:00
Atorvastatin [Lipitor] 40 mg PO QPM
04/18/24 18:50
PTT Urgent
04/18/24 20:00
Amoxicillin [Amoxil] 500 mg PO BID
Doxazosin Mesylate [Cardura] 2 mg PO BID
Pantoprazole [Protonix IV] 40 mg IV BID
04/18/24 22:00
Amlodipine [Norvasc] 5 mg PO HS
Clonazepam [Klonopin] 0.5 mg PO HS
Famotidine [Pepcid] 10 mg PO HS
04/18/24 23:00
Troponin I Q6H
04/19/24 Breakfast
NPO
Allow oral meds: Yes
Allow clear liquids: 4hrs prior to procedure
NPO with Ice Chips: Yes
Comment: may have unrestricted clear liquid up to 4 hrs prior to scheduled procedure
Basic Metabolic Panel IN AM
Complete Blood Count/No Diff IN AM
Magnesium IN AM
04/19/24 08:00
Aspirin Chewable [Low Strength Aspirin] 81 mg PO DAILY
Clopidogrel Bisulfate [Plavix] 75 mg PO DAILY
Finasteride [Proscar] 5 mg PO DAILY
Metoprolol Xl [Toprol Xl] 75 mg PO DAILY
Sodium Bicarbonate 650 mg PO DAILY
Tamsulosin [Flomax] 0.4 mg PO DAILY
04/20/24 06:00
Complete Blood Count/No Diff Q2D
Comment: notify provider: Platelet count < 130,000 or decrease by 50% from baseline
04/22/24 06:00
Complete Blood Count/No Diff Q2D
Comment: notify provider: Platelet count < 130,000 or decrease by 50% from baseline
04/24/24 06:00
Complete Blood Count/No Diff Q2D
Comment: notify provider: Platelet count < 130,000 or decrease by 50% from baseline
04/26/24 06:00
Complete Blood Count/No Diff Q2D
Comment: notify provider: Platelet count < 130,000 or decrease by 50% from baseline
04/28/24 06:00
Complete Blood Count/No Diff Q2D
Comment: notify provider: Platelet count < 130,000 or decrease by 50% from baseline
04/30/24 06:00
Complete Blood Count/No Diff Q2D
Comment: notify provider: Platelet count < 130,000 or decrease by 50% from baseline
05/02/24 06:00
Complete Blood Count/No Diff Q2D
Comment: notify provider: Platelet count < 130,000 or decrease by 50% from baseline
05/04/24 06:00
Complete Blood Count/No Diff Q2D
Comment: notify provider: Platelet count < 130,000 or decrease by 50% from baseline
Abnormal Lab Results
04/18/24
10:50
RBC 3.17 L 10^6/uL
(4.70-6.10)
Hgb 10.2 L g/dL
(13.0-18.0)
Hct 29.0 L %
(39.0-52.0)
MCH 32.2 H pg
(27.0-31.0)
Absolute Neuts (auto) 7.4 H 10^3/uL
(1.4-6.5)
Neutrophils % 78.6 H %
(42.2-75.2)
Lymphocytes % 15.0 L %
(20.5-51.1)
Carbon Dioxide 18 L mmol/L
(22-30)
BUN 44 H mg/dl
(9-20)
Creatinine 1.8 H mg/dL
(0.7-1.3)
Glucose 137 H mg/dl
(70-99)
Troponin I 0.381 H* ng/ml
04/18/24 10:50
04/18/24 10:50
Vital Signs
Initial and Last Documented VS:
Initial Vital Signs
Temp Pulse Resp BP Pulse Ox
97.6 F 90 20 129/76 95
04/18/24 10:33 04/18/24 10:33 04/18/24 10:33 04/18/24 10:33 04/18/24 10:33
Last Documented Vital Signs
Temp Pulse Resp BP Pulse Ox
97.9 F 64 18 140/70 98
04/18/24 16:39 04/18/24 16:39 04/18/24 16:39 04/18/24 16:39 04/18/24 16:55
MDM/Problems Addressed
MDM/Problems Addressed:
79-year-old male history of CAD, hypertension, hyperlipidemia, H. pylori presenting with chest pressure/epigastric pain that started yesterday with associated shortness of breath, nausea, and vomiting. Initial EKG was concerning for ST elevations in
AVR with diffuse depressions new compared to EKG on 04/10/24. STEMI alert activated. Ordered aspirin 324mg and nitro SL. After nitro SL x 3 and morphine 4mg IV, patient experienced improvement in symptoms. Discussed with Dr. Cardenas, cardiology, who
evaluated patient at bedside and ordered heparin, nitro infusion. Repeat EKG improved with no AVR elevation, minimal ST depression. STEMI called off. Troponin 0.381 (previously 0.179 at discharge on 04/10 which downtrended from peak 0.768 during
previous hospitalization). Discussed with hospitalist for admission.
*Critical Care Note
Total Time (30-74mins, 75-104mins- exclusive of procedures): Not Applicable
ED Attending Note
-
Portions of this chart may have been created with voice recognition software.� Occasional wrong word or��sound alike� substitutions may have occurred due to the inherent limitations of voice recognition software.
Discharge Plan
Departure
Patient Disposition: Admit
Date of Disposition: 04/18/24
Time of Disposition: 12:11
Presentation/result/management discussed w/ accepting MD/DO: Hospitalist
Discharge Problem:
Non-ST elevation (NSTEMI) myocardial infarction
Interventions
Interventions:
*Risk Screen - Suicide Last Done: 04/18/24 15:24
*General Assessment Last Done: 04/18/24 12:15
*Neglect/Abuse Screening Last Done: 04/18/24 12:15
ED- Fall Risk Assessment Last Done: 04/18/24 12:15
*ED COVID-19 Vaccine History Last Done: 04/18/24 15:24
*Nursing Disposition Last Done: 04/18/24 14:21
KX-Nanlnv-Yvimbmidod Assessment Last Done: 04/18/24 10:58
Discharge Date and Time
Discharge Date/Time: 04/18/24 14:15
[2024-04-18 12:04] LABS: Lipase 79 U/L (23-300)
--- NOTE | 2024-04-18 12:20 | CON.CAR ---
Consultation
Consultation Request
Date/Time Consultation Requested: March 18, 2024 at 10: 50
Date/Time Consultation Performed: March 18, 2024 at 1115
Requesting Provider: Dr. Eli Medina
Performing Provider: Dr. Nael Cardenas
Reason for Consultation: Chest Pain and shortness of breath
Medical History
-
Chief Complaint: Chest pain and shortness of breath
History of Present Illness:
INTERVENTIONAL CARDIOLOGY NOTE:
Primary Cardiology: Dr. Eugene Kilpatrick
Gastroenterology: Dr. Adrian
Shells Inspector: Language Line [place] Shells Inspector
This is an 89-year-old [place]ian speaking gentleman with a prior history of coronary artery disease and recent stenting of a ramus intermedius on 04/04/2024 after presenting with chest discomfort and mild elevation in troponin. During that
hospitalization he was found to have a murmur of aortic stenosis with preserved LV systolic function and estimated ejection fraction of 55-60%. The mean aortic valve gradient measured 34 mmHg with an estimated aortic valve area between 0.8 and 0.9
cm�. He was seen by TAVR coordinators with initiation of workup for possible transcatheter aortic valve. Additional history includes multiple myeloma for which he sees an oncologist at [facility], CKD, peptic ulcer disease with severe reflux,
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
Family tells me that he has a long history of intermittent chest discomfort and had been followed most recently by Dr. Uvaldo Quispe. Family tells me that Dr. Bailon saw the patient last in January 2024 and the family was told 'there was
little to be done for him'. He was then admitted to [facility] 04/05/2024 with chest discomfort and was referred for coronary angiography for a non-ST segment elevation myocardial infarction and underwent stenting of an 80% ruptured plaque
in the ramus with a [place] 3.0 x 18 mm stent. He was discharged on 04/07/2024 on aspirin and Brilinta.
He presents to [facility] for evaluation of nausea with vomiting, shortness of breath, and mid-epigastric chest discomfort. Family states that he has had 10/10 epigastric discomfort for the past 3 days and that symptoms had been
unrelenting. He took the remainder of his oxycodone and began using some morphine tablets which he had at home. Family also reported that he was taking oxycodone 3-5 times daily. His stated that they started driving to [facility] on
04/17 but patient then stated he felt better and they returned home. This morning he presented with non-stop chest discomfort similar to what he had over the past several days. It was hard to obtain when symptoms began because family kept saying
(even with american sign language interpreter) that he has had the same pain for 3 days even though they turned around from the hospital visit yesterday.
Missed aspirin yesterday. Missed Brilinta yesterday and today
The patient received SLNTG x 3, IV morphine, IV Zofran and IV heparin. He was started on an IV nitroglycerin drip and IV heparin drip. He is chest pain free. Still experiencing occasional episodes of shortness of breath.
-04/05/2024: Echo: LV: Mild concentric LVH. EF 55-60%. Mild basal inferolateral HK. RV: Normal, LA: Mildly dilated, RA: Normal, MV: Mild MR, AV: Thickened and calcified with P/M gradient 50/34 mmHg. Pvel: 3.52 m/sec, Mild AI. TV: Trace TR with
estimated PAP 20-25 mmHg.
Past Medical History
-Multiple myeloma: Follows at [facility]
-Peptic ulcer disease: Reportedly was diagnosed with H. pylori several years ago but had not received treatment. He was discharged on clarithromycin 500 mg p.o. twice daily, pantoprazole, and Carafate
-Coronary artery disease: Recent ramus stent. Prior stents x 2
-Aortic stenosis: Mod-severe . Currently under evaluation for possible TAVR
-Hypertension
-Hyperlipidemia
-Anemia
-CKD IIIb
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
Past Surgical History:
-Multiple endoscopies
-Cardiac stents
Allergies: NKDA
Review of System:
- Gen: Feeling poorly, short of breath, no fever, poor appetite
- Respiratory: paroxysms of profound shortness of breath
- CV: Epigastric discomfort
- Abdomen/GI: Chronic constipation but moved his bowels yesterday. No melena or BRBPR
- Neurologic / Psych: difficult to fully assess cognition because of language barrier. Family feels neurologic status is baseline
Social History
Tobacco: Former Smoker
Alcohol: None
Personal:
Living: With Family
Allergies / Home Medications
Allergy/AdvReac Type Severity Reaction Status Date / Time
Penicillins Allergy Unknown Verified 04/10/24 13:52
�Medication �Instructions �Recorded �Confirmed �Type
amlodipine 5 mg tablet 5 mg PO HS Blood Clot Prevention/Tx 01/15/19 04/10/24 History
finasteride 5 mg tablet 5 mg PO DAILY Urinary Issue 01/15/19 04/10/24 History
nitroglycerin 0.4 mg sublingual 0.4 mg sublingual [id number] PRN 01/15/19 04/10/24 History
tablet chest pain
tamsulosin 0.4 mg capsule 0.4 mg PO DAILY Urinary Issue 01/15/19 04/10/24 History
alprazolam 0.25 mg tablet 0.25 mg PO TIDPRN PRN anxiety 04/04/24 04/10/24 History
bumetanide 1 mg tablet 1 mg PO DAILYPRN PRN swelling 04/04/24 04/10/24 History
clonazepam 0.5 mg tablet 0.5 mg PO HS Mental Health/Anxiety 04/04/24 04/10/24 History
doxazosin 4 mg tablet 2 mg PO BID BPH 04/04/24 04/10/24 History
famotidine 40 mg tablet 40 mg PO DAILY Gastrointestinal 04/04/24 04/10/24 History
Issue
isosorbide mononitrate 30 mg 30 mg PO DAILY Heart 04/04/24 04/10/24 History
tablet,extended release 24 hr Disease/Condition
metoprolol succinate 50 mg 75 mg PO DAILY Heart Failure 04/04/24 04/10/24 History
tablet,extended release 24 hr
oxycodone 5 mg tablet 5 mg PO Q8HPRN PRN moderate to 04/04/24 04/10/24 History
severe pain
aspirin 81 mg chewable tablet 81 mg PO DAILY #30 tabs 04/07/24 04/10/24 Rx
atorvastatin 40 mg tablet 40 mg PO QPM #30 tabs 04/07/24 04/10/24 Rx
docusate sodium 100 mg capsule 100 mg PO BID #30 caps 04/07/24 04/10/24 Rx
pantoprazole 40 mg tablet,delayed 40 mg PO Q12H #60 tabs 04/07/24 04/10/24 Rx
release
polyethylene glycol 3350 17 gram 17 g PO DAILY #14 ea 04/07/24 04/10/24 Rx
oral powder packet (HealthyLax)
sodium bicarbonate 650 mg tablet 650 mg PO DAILY #20 tabs 04/07/24 04/10/24 Rx
ticagrelor 90 mg tablet (Brilinta) 90 mg PO BID #60 tabs 04/07/24 04/10/24 Rx
sucralfate 100 mg/mL oral 10 ml PO ACHS 7 days #280 mL 04/10/24 Rx
suspension (Carafate)
Physical Exam
Vital Signs
Temp Pulse Resp BP Pulse Ox
97.6 F 86 16 129/61 100
04/18/24 10:33 04/18/24 10:50 04/18/24 10:50 04/18/24 11:21 04/18/24 12:15
Lab Results
04/18/24 10:50
04/18/24 10:50
Troponin I 0.381 ng/ml H* 04/18/24 10:50
GEN: Elderly gentleman, chronically ill appearing. He seems oriented and is appropriate. Complaining of severe paroxysms of shortness of breath and epigastric discomfort
HEENT: NC/AT, sclera are anicteric,
LUNGS: Clear to bases bilaterally. No wheezing
CV: Regular rate and rhythm. Normal S1/S2. No S3, No S4. Murmur: II-III/ murmur at USB but noted throughout the precordium
ABD : Soft, Bowel sounds are present. No guarding.
EXT: No CCE
NEURO: No focal neurologic deficits
ECG 1 : NSR with ST-T depression in anterior and anterolateral leads. No ST elevations
ECG 2: Sinus rhythm with resolution ST-T changes
Impression / Plan
-
IMPRESSION:
-Chest and epigastric discomfort unrelenting for 3 days
-Shortness of breath
-NSTEMI :
Coronary artery disease with recent NSTEMI
Recurring chest discomfort with current troponin of 0.381 ng/ml after 0.179 ng/ml on discharge
-Aortic stenosis with mean gradient 34 mmHg
-Preserved LVEF
-Nausea and vomiting with history of multiple endoscopies and untreated H. pylori
currently on clarithromycin and carafate for untreated h. pylori
-Elevated glucose
-Mixed hyperlipidemia
-Hypertension
RECOMMENDATION:
-NSTEMI:
aspirin and change Brilinta to Plavix as the Brilinta may be contributing to shortness of breath
Trend serial troponin
May consider invasive vs conservative evaluation depending on serial trend of troponin
Currently chest pain free on IV nitro and SLNTG
-Profound shortness of breath: Likely multifactorial
Does not examine overtly volume overloaded
Lets change Brilinta (may cause shortness of breath) to Plavix : 600mg loading dose as he skipped Brilinta last night
Check ProBNP to see if significantly elevated
Aortic stenosis workup is under way
-Nausea and vomiting also likely multifactorial
will discuss if clarithromycin may be contributing to symptosm
Continue GI prophylaxis
chronic narcotic use
-Chronic narcotic use and anxiolytic use:
family stated that he had been taking oxycodone 3-5 times daily and ran out then started taking morphine tablets which he had at home
I spent over 120 minuted in direct patient care, evaluation, review of records including old ECG, cath, echo and in discussion with family and Dr. Salmeron who will assume primary cardiology evaluation as well as the Hospitalist service.
Data Reviewed
-
EKG: Tracing Personally Visualized and interpreted
Radiology: Report Reviewed by me
Ultrasound: Image Personally Visualized and interpreted and Report Reviewed by me
Medical Tests (Nuc Med, Echo etc): Report Reviewed by me
Labs: Labs Reviewed by me
Old Records: Reviewed
Critical Care Time (in minutes): Critical Care in the ED at [facility] 120 min after initial STEMI alert
[2024-04-18 12:41] LABS: APTT 32.4 Sec (23.4-35.0)
[2024-04-18] MEDS: HEPARIN 25000 UNITS/250 ML IV (12:50)
--- NOTE | 2024-04-18 13:09 | HPS.HSE ---
Family Physician
-
Family Physician: Toby Mcgregor
Chief Complaint
-
Chest Pain and Shortness of Breath
History of Present Illness
89 yo male with a history of anxiety, multiple myeloma, CKD, aortic stenosis, GERD, gastritis, and CAD s/p multiple stents with most recent on Apr 04 who presents with 2 days of chest pain. Patient is Chadian-speaking and history is provided by
his family member at bedside. His chest pain is epigastric, constant and has not varied with exertion, positional change, or eating. He also reports SOB that has progressively worsened over past 2 weeks, as well as abdominal pain, nausea, and
vomiting. He has a history of intractable GERD and gastritis with recurrent H. pylori infection re-occurring about every 2 years. His family member notes that his current presentation is similar to both his ME and his GERD/gastritis in the past.
He's been taking oxycodone, which was prescribed for his multiple myeloma, frequently in the past 2 days for his pain, as well as morphine after he ran out of oxycodone. Family reports recent breath test was positive for H. pylori and he started
antibiotics yesterday. Family also notes patient experiences frequent episodes of anxiety.
Medical History
Past Medical History
Past Medical History: Reports Other
Additional Past Medical History:
Coronary Artery Disease s/p Multiple Stent (Most Recent Apr 04)
Severe Aortic Stenosis
Essential Hypertension
Hyperlipidemia
CKD Stage III
Metabolic Acidosis
Multiple Myeloma
GERD/Gastric Ulcers/H. pylori
BPH
Generalized Anxiety Disorder
Past Surgical History: Reports Other
Additional Past Surgical History:
Multiple Cardiac Stents
Multiple Endoscopies
Social History
Tobacco: Former Smoker (Quit 20 years ago)
Alcohol: None
Drug: None
Personal: Single
Living: With Family
Employment: Retired
Family History
Family History: Other (Patient's parents when he was a child unsure sister history of CAD, MIs)
Allergies / Home Medications
Allergies reflects when Allergies were last updated in [facility].
Home Medications with original date entered in [facility]
Allergy/Medication List:
Allergies
Allergy/AdvReac Type Severity Reaction Status Date / Time
Penicillins Allergy Unknown Verified 04/10/24 13:52
Home Medications
amlodipine 5 mg tablet 5 mg PO HS Blood Clot Prevention/Tx 01/15/19
finasteride 5 mg tablet 5 mg PO DAILY Urinary Issue 01/15/19
nitroglycerin 0.4 mg sublingual tablet 0.4 mg sublingual [id number] PRN chest pain 01/15/19
tamsulosin 0.4 mg capsule 0.4 mg PO DAILY Urinary Issue 01/15/19
alprazolam 0.25 mg tablet 0.25 mg PO TIDPRN PRN anxiety 04/04/24
clonazepam 0.5 mg tablet 0.5 mg PO HS Mental Health/Anxiety 04/04/24
doxazosin 4 mg tablet 2 mg PO BID BPH 04/04/24
famotidine 40 mg tablet 40 mg PO DAILY Gastrointestinal Issue 04/04/24
isosorbide mononitrate 30 mg tablet,extended release 24 hr 30 mg PO DAILY Heart Disease/Condition 04/04/24
metoprolol succinate 50 mg tablet,extended release 24 hr 75 mg PO DAILY Heart Failure 04/04/24
oxycodone 5 mg tablet 5 mg PO Q8HPRN PRN moderate to severe pain 04/04/24
aspirin 81 mg chewable tablet 81 mg PO DAILY #30 tabs 04/07/24
atorvastatin 40 mg tablet 40 mg PO QPM #30 tabs 04/07/24
docusate sodium 100 mg capsule 100 mg PO BID #30 caps 04/07/24
pantoprazole 40 mg tablet,delayed release 40 mg PO Q12H #60 tabs 04/07/24
sodium bicarbonate 650 mg tablet 650 mg PO DAILY #20 tabs 04/07/24
ticagrelor 90 mg tablet (Brilinta) 90 mg PO BID #60 tabs 04/07/24
sucralfate 100 mg/mL oral suspension (Carafate) 10 ml PO ACHS 7 days #280 mL 04/10/24
acetaminophen 325 mg tablet (Tylenol) 650 mg PO Q4HPRN PRN mild pain 04/18/24
amoxicillin 500 mg tablet 500 mg PO QID 04/18/24
clarithromycin 500 mg tablet 500 mg PO BID 04/18/24
Review of Systems
-
Unable to obtain full review of systems at this time due to: Language Barrier
Physical Exam
Vital Signs
Vital Signs
Temp Pulse Resp BP Pulse Ox
97.6 F 59 12 141/77 99
04/18/24 10:33 04/18/24 12:45 04/18/24 12:45 04/18/24 12:06 04/18/24 12:45
Physical Exam
General: Comfortable and Conversant
HEENT: Anicteric, Moist mucous membranes and Oxygen (Nasal Cannula)
Respiratory: Rales (Right base) and Non Labored Respirations
Cardiac: S1/S2, Regular Rhythm and Other (4/6 Systolic Murmur)
GI: Soft and Non Tender
Rectal: Deferred by Provider
Musculoskeletal: No Clubbing, No Cyanosis and No Edema
Skin: Warm and Dry
Neuro: Awake, Alert, Oriented and Nonfocal/grossly intact
Laboratory Results
-
04/18/24 10:50
04/18/24 10:50
Laboratory Results
APTT 32.4 Sec (23.4-35.0) 04/18/24 12:24
Total Bilirubin 0.7 mg/dl (0.2-1.3) 04/18/24 10:50
AST 32 U/L (17-59) 04/18/24 10:50
ALT 14 U/L (0-50) 04/18/24 10:50
Alkaline Phosphatase 66 U/L (38-126) 04/18/24 10:50
Troponin I 0.381 ng/ml H* 04/18/24 10:50
Lipase 79 U/L (23-300) 04/18/24 10:50
Data Reviewed
-
Diagnostic Radiology: Report Reviewed by me
Lab Data: Labs Reviewed by me
Old Records: Reviewed
Impression/Plan
-
Chest Pain and Shortness of Breath: Likely Multifactorial related to NSTEMI, GI and Anxiety
NSTEMI
-Reviewed with Cardiology
-Continue nitro and heparin drips
-Transition Brilinta to Plavix as possible cause of shortness of breath
-Continue to trend to troponin
Recent H. Pylori Infection
-Per family patient had positive breath test just prior to March admission, and started antibiotics yesterday
-Patient continues with nausea/vomiting
-Allow clear liquids
-Hold clarithromycin as possibly contributing factor
-Continue amoxicillin
-Continue Protonix, Pepcid and Carafate
-Use Tigan for nausea due to prolonged QT
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
-Suspect more related to volume depletion in setting of vomiting however chest x-ray raises concern for interstiti pulmonary edema
-Check BNP
-Monitor creatinine
Severe Aortic Stenosis
-Monitor Is&Os and Daily Weights
Essential Hypertension
-Continue amlodipine. doxazosin and metoprolol
Hyperlipidemia
-Continue atorvastatin
Chronic Metabolic Acidosis
-Continue sodium bicarbonate
Generalized Anxiety Disorder
-Continue clonazepam at bedtime
BPH
-Continue doxazosin, finasteride and tamsulosin
DVT proph: Heparin Drip
Code Status: Full Code
[2024-04-18 13:59] LABS: NT-proBNP 4240 pg/ml
--- NOTE | 2024-04-18 14:04 | W.PN.UPDATE ---
Update Note
Progress Note Update
This is an addendum to the H&P written by Susi Del Rio on 04/18/2024.� Patient seen and examined dependently with PA.
89-year-old Sierra Leonean-speaking male past medical history of CAD status post recent stent on 04/05, severe aortic stenosis, hypertension, hyperlipidemia, peptic ulcer disease, H. pylori, multiple myeloma, CKD, presenting with chest pain again.
Patient was just admitted from 04/04 to 04/07 for chest pain for which he underwent cardiac catheterization with placement of RAYNE.� Patient was started on dual antiplatelet therapy with aspirin/ticagrelor.
Patient also has a history of recurrent H. pylori/peptic ulcer disease and was started on antibiotics for H. pylori yesterday.
There was initial concern for STEMI due to initial EKG showing what appeared to be ST elevation in lead V2.� STEMI alert was called and repeat EKG showed ST depressions in leads II, V2 to V6 and cardiology thinks this is not STEMI but rather NSTEMI.
He was started on triple therapy for H. pylori by GI yesterday.
Patient currently on heparin drip, nitroglycerin drip to treat NSTEMI.� Trend troponins.� Cardiology consulted.� Cardiology recommends switching ticagrelor to Plavix given shortness of breath.� Shortness of breath could also be due to anxiety
although patient refusing anxiety medications.� He is in the process of undergoing TAVR evaluation.
Chest pain described as epigastric with radiation superiorly seems to be an ongoing problem and is at this time resolved but patient has significant nausea and vomiting.� Suspect that in addition to cardiac concerns there is a GI component to the
pain.� Unclear if patient is having recurrent versus persistent H. pylori.� Hold�clarithromycin for now.� Continue Protonix twice daily and Carafate.� Consult GI.� Williaman for nausea given QTc prolongation.� Clear liquid diet, n.p.o. past midnight.
Loud systolic murmur on examination. Some crackles on exam.� Minimal lower extremity edema.
Patient has TI on labs.� Chest x-ray shows pulmonary edema.� Hesitant to diurese given volume losses/decreased oral intake due to nausea and vomiting.
[2024-04-18] MEDS: XANAX 0.25 MG PO (14:46)
--- NOTE | 2024-04-18 15:14 | PTCARENOTE ---
Rec'd pt from ER at 14:29 on TELE monitor in NSR, with SOB on 2L (increased to 3 for comfort), pulse ox @ 96%, elevated BP, and HR in the 70's (See flowchart). Hep ggt at 950 units/hr and Nitro infusing at 5 mcg/min. Pt is Bur[place]ian speaking with
daughter at side translating. Pt reported CP rating pain at a 9/10, with pain radiating to left arm, and abdomen. EKG obtained and Meg Winters aware. RN titrated nitro ggt per order (see flowsheet) after. Nitro ggt titrated to 15 mcg
per min. After 2 minutes pt rated CP at a 1/10. Pt resting in bed and call reyes in reach. Pt's daughter reported history of anxiety and PO Xanax given per order. Pt now resting comfortably with daughter holding hand at bedside. Language line
ordered from supervisor mold yard.
--- NOTE | 2024-04-18 15:38 | W.PN.UPDATE ---
Update Note
Progress Note Update
Case discussed in detail with Dr. Cardenas.
Pt seen and examined. Family interviewed. Family served as flush tester.
More CP and repeat EKG with ST depression again.
CXR read as heart failure and at home has used diuretic in the past but Bumex held at recent discharge.
Will add IV Lasix BID and will anticipate cath tomorrow.
[2024-04-18] MEDS: LASIX 40 MG PO (16:22)
[2024-04-18] MEDS: CARAFATE SUSPENSION 1 GM PO ×2 (16:22→22:02)
[2024-04-18] MEDS: LIPITOR 40 MG PO (16:23)
[2024-04-18 19:27] LABS: APTT 69.1 Sec (23.4-35.0)
[2024-04-18 19:42] LABS: Troponin I 0.672 ng/ml
[2024-04-18] MEDS: PROTONIX IV 40 MG IV (19:47)
[2024-04-18] MEDS: NSS (PRESERVATIVE FREE) 10 ML IV (19:48)
[2024-04-18] MEDS: PEPCID 10 MG PO (22:01)
[2024-04-18] MEDS: NORVASC PO (22:02)
[2024-04-18] MEDS: KLONOPIN 0.5 MG PO (22:02)
--- NOTE | 2024-04-18 23:27 | PTCARENOTE ---
Received pt at handoff. Daughter at bedside translating. Language line also at bedside. Tele- SR. HR 60-70s. Heparin gtt infusing at 1050 units/hr. Nitro gtt infusing at 15mcg/min. Pt reports CP 08/20. Reinforced pt to use call reyes when getting OOB.
Found pt attempting to get OOB on own. Bed alarm placed. Pt ambulating to bathroom w/ standby assist. Pt is anxious/impulsive on feet. Reinforced pt on fall precautions. Pt is currently in bed; call reyes w/in reach.
[2024-04-19] VITALS (22 sets, daily range): BP systolic 96–138; BP diastolic 52–112; BMI 28.8
[2024-04-19 02:36] LABS: Hematocrit 24.8 % (39.0-52.0); Hemoglobin 8.8 g/dL (13.0-18.0); Mean Corp Hgb Conc. 35.5 g/dL (33.0-37.0); Mean Corpuscular Hgb 31.8 pg (27.0-31.0); Mean Corpuscular Volume 89.5 fL (80.0-94.0); Mean Platelet Volume 10.1 fL (7.4-10.4); Platelet Count 161 10^3/uL (130-400); Red Blood Cell Count 2.77 10^6/uL (4.70-6.10); Red Cell Dist. Width 12.9 % (11.5-14.5); White Blood Cell Count 8.1 10^3/uL (4.8-10.8)
[2024-04-19 02:49] LABS: APTT 87.3 Sec (23.4-35.0)
[2024-04-19 03:04] LABS: Troponin I 0.853 ng/ml
[2024-04-19 03:09] LABS: Blood Urea Nitrogen 45 mg/dl (9-20); Calcium 8.9 mg/dl (8.4-10.2); Carbon Dioxide 16 mmol/L (22-30); Chloride 107 mmol/L (98-107); Estimated Creatinine Clearance 23 ml/min; Glucose 95 mg/dl (70-99); Magnesium 2.4 mg/dl (1.6-2.3); Potassium 4.1 mmol/L (3.5-5.1); Sodium 141 mmol/L (135-145)
--- NOTE | 2024-04-19 06:45 | CON.GI ---
Addendum entered and electronically signed by Boston Coombs DO 04/19/24 10:50:
I saw and examined the patient. The PUBLIC HEALTH INFORMATICIAN's note was reviewed and I agree with the note.
Comment: This is a 89 y.o Palestinian-speaking male with past medical history of HTN, HLD, chronic anemia, CKD, multiple myeloma, moderate to severe , obstructive CAD (s/p prior stents 03/2024, on DAPT) and hx of PUD 2/2 H pylori who presented to the
ED with chest found and SOB found to have NSTEMI and concern for volume overload. Additional concern for possible recurrent H pylori noted on admission as he was started on triple therapy two days ago (clarithromycin, amoxicillin and protonix) given
his dyspepsia and nausea. However, this would not account for his entire clinical presentation and currently being considered for possible cardiac cath later today along with starting IV diuretics. In regards to his H pylori treatment, would defer
antibiotics at this time particularly if this truly represents recurrence given concern for higher rates of resistance with triple therapy clarithromycin-based regimens. Will need additional records to clarify if this represents recurrent H pylori
(2/2 resistance) and/or prior treatment failure. Regardless, agree with further cardiac testing as per Cardiology for possible cardiac cath and further optimization while continuing supportive care as below.
Recommendations:
- Trend serial Hgb, transfuse for goal Hgb > 8.0
- Send anemia w/u: iron studies, ferritin, folate, B12, retic count
- Empiric IV PPI 40 mg BiD
- Hold on starting Carafate given concern for medication absorption issues given recent stent on DAPT
- IV anti-emetics PRN
- Stop Clarithromycin and defer further antibiotic therapy at this time. This will eventually need to be re-addressed as an outpatient and may need an EGD for H pylori resistance testing prior to considering other additional therapies
- Notify GI if overt melena or other concern for overt GI bleeding. No plans for inpatient EGD at this time
- Attempt to obtain prior OSH GI Records (EGD and H Pylori testing), will need outpatient f/u with GI after discharge
- Rest of work-up and management as per Cardiology and primary team
Original Note:
Consultation
-
Date/Time Consultation Requested: 04/18/24 1430
Date/Time Consultation Performed: 04/19/24 0700
Requesting Provider: Meg Del Rio PA-C
Performing Provider: LUZ Gibson
Reason for Consultation: abdominal pain/nausea/vomiting
Medical History
Chief Complaint / HPI
Chief Complaint: chest pain
History of Present Illness:
Pt is a 89yo Palestinian speaking with hx multiple myeloma follows at [facility] with prior H pylori, moderate to severe with current eval for TAVR, HTN, hyperlipidemia, anemia, CKD, narcotic use and CAD with multiple stents last 04/04/24 of [facility]
intermedius on Brilinta and ASA. Per admission long hx chest pain with prior follow with [facility] with unclear etiology. He was admitted to 04/05 with stenting of 80% in Ramus and now returns with chest pain and elevated troponin
and St depression. He was started on therapy for H pylori 2 days prior to admission with Clarithromycin, amoxicillin, and Protonix. Pt has been seen by cardiology with adjustment of diuretics and possible for possible cath today.
At this time patient admits to ongoing chest pain similar to pain last admission. Pain is epigastric and chest. He admits to some GERD but stable with PPI use. He also has nausea but no vomiting and ? few lb wt loss with not eating last few
days. He also admits to occasional diarrhea and constipation. He denies odynophagia, dysphagia, blood or black in stools. Pt admits to hx anemia with hx myeloma but no transfusions required.
Past Medical History
Past Medical History: CAD (with multiple stents ), Cancer (multiple myeloma), GERD, HTN, Hypercholesterolemia, Renal Failure (CKD), Valvular Disease (aortic stenosis) and Other (gastritis, prior H pylori)
Past Surgical History: Cardiac (stente of ramus intermdius 04/04/24 )
Social History
Tobacco: Former Smoker
Alcohol: None
Drug: None
Personal:
Living: Other (ex )
Family History
Family History: Other (no family hx colon Ca or polyps )
Allergies / Home Medications
Allergy/AdvReac Type Severity Reaction Status Date / Time
Penicillins Allergy Unknown Verified 04/10/24 13:52
�Medication �Instructions �Recorded
amlodipine 5 mg tablet 5 mg PO HS Blood Clot Prevention/Tx 01/15/19
finasteride 5 mg tablet 5 mg PO DAILY Urinary Issue 01/15/19
nitroglycerin 0.4 mg sublingual 0.4 mg sublingual [id number] PRN 01/15/19
tablet chest pain
tamsulosin 0.4 mg capsule 0.4 mg PO DAILY Urinary Issue 01/15/19
alprazolam 0.25 mg tablet 0.25 mg PO TIDPRN PRN anxiety 04/04/24
clonazepam 0.5 mg tablet 0.5 mg PO HS Mental Health/Anxiety 04/04/24
doxazosin 4 mg tablet 2 mg PO BID BPH 04/04/24
famotidine 40 mg tablet 40 mg PO DAILY Gastrointestinal 04/04/24
Issue
isosorbide mononitrate 30 mg 30 mg PO DAILY Heart 04/04/24
tablet,extended release 24 hr Disease/Condition
metoprolol succinate 50 mg 75 mg PO DAILY Heart Failure 04/04/24
tablet,extended release 24 hr
oxycodone 5 mg tablet 5 mg PO Q8HPRN PRN moderate to 04/04/24
severe pain
aspirin 81 mg chewable tablet 81 mg PO DAILY #30 tabs 04/07/24
atorvastatin 40 mg tablet 40 mg PO QPM #30 tabs 04/07/24
docusate sodium 100 mg capsule 100 mg PO BID #30 caps 04/07/24
pantoprazole 40 mg tablet,delayed 40 mg PO Q12H #60 tabs 04/07/24
release
sodium bicarbonate 650 mg tablet 650 mg PO DAILY #20 tabs 04/07/24
ticagrelor 90 mg tablet (Brilinta) 90 mg PO BID #60 tabs 04/07/24
sucralfate 100 mg/mL oral 10 ml PO ACHS 7 days #280 mL 04/10/24
suspension (Carafate)
acetaminophen 325 mg tablet 650 mg PO Q4HPRN PRN mild pain 04/18/24
(Tylenol)
amoxicillin 500 mg tablet 500 mg PO QID 04/18/24
clarithromycin 500 mg tablet 500 mg PO BID 04/18/24
Review of Systems
-
History Source: Patient
Constitutional: Reports Weight Loss (few lbs ) and Fatigue
EENT: Reports No Symptoms
Respiratory: Reports Trouble Breathing
Cardiac: Reports Chest Pain
Abdomen/GI: Reports Abdominal Pain (epigastric pain )
: Reports No Symptoms
Musculoskeletal: Reports No Symptoms
Skin: Reports No Symptoms
Neurological: Reports Weakness
Endocrine: Reports No Symptoms
Hematologic/Lymphatic: Reports No Symptoms
Vital Signs
Temp Pulse Resp BP Pulse Ox
98.3 F 81 16 131/74 94
04/19/24 02:20 04/19/24 05:00 04/19/24 02:20 04/19/24 04:57 04/19/24 02:20
Physical Exam
Exam
General: Well Developed, Well Nourished and No Apparent Distress
HEENT: Normocephalic
Respiratory: Clear
Cardiac: Regular Rhythm
GI: Soft, Non Distended and Tender (minimal with chest pain )
Musculoskeletal: No Clubbing and No Cyanosis
Skin: Warm and Dry
Neuro: Awake, Alert, AO x 3 and Other (palestinian speaking )
Psych: Calm
Results
WBC 8.1 10^3/uL (4.8-10.8) 04/19/24 02:20
Hgb 8.8 g/dL (13.0-18.0) L 04/19/24 02:20
Hct 24.8 % (39.0-52.0) L 04/19/24 02:20
MCV 89.5 fL (80.0-94.0) 04/19/24 02:20
Plt Count 161 10^3/uL (130-400) 04/19/24 02:20
Absolute Neuts (auto) 7.4 10^3/uL (1.4-6.5) H 04/18/24 10:50
APTT 87.3 Sec (23.4-35.0) H 04/19/24 02:20
Sodium 141 mmol/L (135-145) 04/19/24 02:20
Potassium 4.1 mmol/L (3.5-5.1) 04/19/24 02:20
Chloride 107 mmol/L (98-107) 04/19/24 02:20
Carbon Dioxide 16 mmol/L (22-30) L 04/19/24 02:20
BUN 45 mg/dl (9-20) H 04/19/24 02:20
Creatinine 2.1 mg/dL (0.7-1.3) H 04/19/24 02:20
Calcium 8.9 mg/dl (8.4-10.2) 04/19/24 02:20
Total Bilirubin 0.7 mg/dl (0.2-1.3) 04/18/24 10:50
AST 32 U/L (17-59) 04/18/24 10:50
ALT 14 U/L (0-50) 04/18/24 10:50
Alkaline Phosphatase 66 U/L (38-126) 04/18/24 10:50
Lipase 79 U/L (23-300) 04/18/24 10:50
Diagnostic Image Results:
Prior GI Procedures:
EGD: last [address] Adrian
Colonoscopy: last 4 years
Assessment / Plan
-
Pt is a 89yo Palestinian speaking with hx multiple myeloma follows at [place] with prior H pylori, moderate to severe with current eval for TAVR, HTN, hyperlipidemia, anemia, CKD, narcotic use and CAD with multiple stents last 04/04/24 of ramus
intermedius on Brilinta and ASA. Per admission long hx chest pain with prior follow with [facility] with unclear etiology. He was admitted to 04/05 with stenting of 80% in Ram[place] and now returns with chest pain and elevated troponin
and St depression. He was started on therapy for H pylori 2 days prior to admission with Clarithromycin, amoxicillin, and Protonix by Dr. Adrian in [place] . Pt has been seen by cardiology with adjustment of diuretics and possible for possible
cath today. hbg 10.2 to 8.8 after admission.
-chest/epigastric pain
-elevated troponin/ST depression
-CHF with concern for CHF
-CAD recent cath with ramus stent
-hx PUD/Hpylori
-anemia with drop in hbg after admission
other medical problems:
-multiple myeloma
-mod to severe with TAVR work up
-HTN
-Hyperlipidemia
-CKD
PLAN:
Etiology of chest pain related to cardiac etiology with elevated trop with recent stent/CHF on CXR vs multi factoral with hx Hpylori with recent start of therapy
plan per cards for cath today
hold H pylori therapy until improved from cardiac standpoint
cont PPI and Carafate
trend hbg with some drop with Brilinta now Plavix therapy
add iron studies
heme check stools
OP follow up with Dr. Adrian-- will obtain OP records of EGD/colon and Hpylori testing
reviewed with cardiology
-
-
Thank you for consultation and allowing me to participate in the patient's care. Please call the emergency communications officer GI physician during the after hours with any questions or concerns.
--- NOTE | 2024-04-19 08:11 | VNURNOTE ---
Chart reviewed. Patient is current with [facility] nursing. Will continue to follow hospital course and DC plans.
[2024-04-19] MEDS: CARAFATE SUSPENSION 1 GM PO (08:42)
[2024-04-19] MEDS: LASIX 40 MG PO (08:42)
[2024-04-19] MEDS: TOPROL XL 75 MG PO (08:43)
[2024-04-19] MEDS: SODIUM BICARBONATE 650 MG PO (08:44)
[2024-04-19] MEDS: PROSCAR 5 MG PO (08:44)
[2024-04-19] MEDS: LOW STRENGTH ASPIRIN 81 MG PO (08:44)
[2024-04-19] MEDS: FLOMAX 0.4 MG PO (08:44)
[2024-04-19] MEDS: PLAVIX 75 MG PO (08:44)
[2024-04-19] MEDS: NSS (PRESERVATIVE FREE) 10 ML IV ×2 (08:46→19:54)
[2024-04-19] MEDS: PROTONIX IV 40 MG IV ×2 (08:46→19:54)
--- NOTE | 2024-04-19 09:32 | PTCARENOTE ---
Pt c/o chest pain this morning after ambulating to BR, over L chest and epigastric area, rated 4-5/10. BP 138/81, Ntg drip increased from 20mcg/min to 30 mcg/min @0745. Dr Basurto notified, EKG ordered and obtained. Pt c/o chest pain again, still
rating 4-5/10, Dr Basurto aware, BP 116/63, Ntg increased to 40 mcg/min. BP 127/69 at 0900. Pt asleep currently.
[2024-04-19 09:37] LABS: Iron 119 ug/dl (49-181)
[2024-04-19 09:46] LABS: Percent Saturation 51 % (20-50); Total Iron Binding Capacity 232 ug/dl (261-462)
--- NOTE | 2024-04-19 10:15 | PTCARENOTE ---
Pt awake, still reporting CP as 4/10, Ntg drip increased to 50 mcg/min, BP 116/62.
[2024-04-19 10:16] LABS: APTT 78.7 Sec (23.4-35.0)
[2024-04-19 10:33] LABS: Troponin I 0.774 ng/ml
--- NOTE | 2024-04-19 11:25 | PTCARENOTE ---
Received patient at change of shift. Awake, alert, and oriented. Sitting in bed. Pt c/o chest pain 4-12/18-- see note from Grisel Nunez. BP 134/81, NSR 70s-80s, 98% on room air. Daughter and bedside. Daughter able to translate when needed. Call
reyes within reach.
--- NOTE | 2024-04-19 12:40 | W.PN.CD ---
Today's Communication / Plan
-
Cardiac catheterization today.
Check SPEP/UPEP/IFA.
Impression / Plan
-
Impression/Plan: 89 y/o [place] Islander speaking male with HTN, multiple myeloma, CKD, moderate/severe , obstructive CAD (s/p remote PCI to LAD, recent PCI to ramus intermedius) and PUD admitted with epigastric/chest discomfort for three days and
shortness in breath combined with low level but abnormal troponin. The patient has had very non-specific chest pain in the past.
#CAD/non-specific chest discomfort/abnormal troponin
-Acute on chronic.
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
-Troponin =0.381 --> 0.672 --> 0.853 --> 0.774.
-Prior angiogram reviewed. There is distal ramus disease that is too small for intervention.
-I explained to the patient that invasive angiography could potentially worsen his renal function, but he is having increasing nitro requirements and had prior dynamic EKG changes. He would like to proceed today.
-Symptoms could be due to underlying HFpEF and . RHC and valve gradient will be obtained.
-In the interim, continue aspirin, atorvastatin, clopidogrel, metoprolol, heparin gtt, nitro gtt.
#HFpEF
-Acute on chronic.
-Weight was up 2.1 kg from [place] on 04/10/2024 (78.4 <-- 76.3).
-Multifactorial from CAD and . There could be contribution from multiple myeloma leading to amyloid.
-LHC/RHC will be performed today for clarification.
-Continue furosemide, metoprolol succinate and nitro gtt.
-We will check simultaneous LV/RV pressures to evaluate for restriction as well was SPEP/UPEP/IFA.
#Moderate/Severe
-Chronic.
-Mean gradient 34 mmHg on prior echo.
-We will invasively interrogate today.
#HTN
-Chronic, stable.
-Continue metoprolol succinate.
#Multiple Myeloma
-Chronic.
-Associated anemia
#Narcotic/Anxiolytic use
-Acute per daughter.
-Patient had reportedly starting taking some medications when chest discomfort returned post PCI.
Subjective/Interval History:
Chest pain overnight and this morning.
Troponin peaked and trending down.
Nitro increased.
He is currently chest pain free.
DATA:
Cardiac Catheterization/PCI, 04/04/2024:
CONCLUSIONS
1. Right dominant circulation with a 40% tapering of the proximal RCA, a 30% lesion in the distal RCA, a 30-40% in the mid circumflex, a patent stent in proximal OM 2, a 40-50% tapering of the distal left main, a 30-40% lesion in the proximal LAD
leading into in-stent restenosis, a 40% lesion in the proximal ramus and a hazy, 80% ruptured plaque in the mid ramus, status post successful PCI ([employer] [place] 3.0 x 18 RAYNE, postdilated with a 3.0 NC balloon) with reduction in stenosis to
0%, maintaining GROVER-3 flow.
TTE, 04/05/2024:
CONCLUSIONS
Normal left ventricular systolic function. Left ventricular ejection fraction
is 55-60%.
Mild basal inferolateral hypokinesis.
Moderate/severe aortic stenosis. Peak gradient 50mmHg/Mean gradient 34mmHg -
using an LVOT of 1.9cm the calculated aortic valve area is 0.8-0.9cm2. Trace
aortic regurgitation.
Compared to 01/15/19: aortic sclerosis has progressed to moderate/severe .
Basal inferolateral hypokinesis now present.
Physical Exam
Vital Signs/Labs
Vital Signs
Temp Pulse Resp BP Pulse Ox
36.8 C 67 20 114/65 95
04/19/24 11:50 04/19/24 12:00 04/19/24 11:50 04/19/24 11:51 04/19/24 11:50
04/18/24 04/19/24 04/20/24
11:59 11:59 11:59
Actual Weight 78.4 kg 76 kg
04/19/24 02:20
04/19/24 02:20
APTT 78.7 Sec (23.4-35.0) H 04/19/24 09:53
Magnesium 2.4 mg/dl (1.6-2.3) H 04/19/24 02:20
04/18/24
10:50
Bnh-H-Pjglmxpikph Pept 4240
LAB Results
04/18/24 04/18/24 04/18/24
10:50 19:06 23:00
Troponin I 0.381 H* 0.672 H* Cancelled
04/19/24 04/19/24
02:20 09:53
Troponin I 0.853 H* D 0.774 H*
Physical Exam
Constitutional: No acute distress and Comfortable
EENT: Anicteric and Moist mucous membranes
Cardiovascular: Rhythm & rate is regular, Pedal edema is absent, JVD pressure is normal, Systolic murmur present and S1S2 is normal
Respiratory: Respiratory effort normal, Lungs clear to auscul., Wheeze Absent, Crackles Absent and Rhonchi Absent
GI: Soft, Distention absent, Flat, Non tender and Normal bowel sounds
Neuro/Psych: AO x 3
Data Reviewed
-
Date of Service: April 19, 2024
Medical Decision Making: Reviewed Test Results, Independent Historian Assessment, Test Interpretation and Review of Case with other Provider
EKG: Tracing Personally Visualized and interpreted and Report Reviewed by me
Echo: Tracing Personally Visualized and interpreted and Report Reviewed by me
X-Ray/CT/US/MRI/NUC/PET: Image Personally Visualized and interpreted and Report Reviewed by me
Medical Tests (PFT, Pathology etc): Image Personally Visualized and interpreted and Report Reviewed by me
Labs: Labs Reviewed by me
Old Records: Reviewed
--- NOTE | 2024-04-19 13:55 | PTCARENOTE ---
Nephew, Dave, called to leave his number for updates/communication if needed. He is a doctor and helps the family with decisions. Patient ok'd sharing information with him. Phone number is [phone].
--- NOTE | 2024-04-19 14:00 | W.PN.HOSP.TC ---
Today's Communication/Plan
-
s/p cath continue DAPT
diet
follow GI/Cards recs
Assessment / Plan
Assessment / Plan
Assessment:
NSTEMI
- trop peaked .85
- s/p recent cath 04/04 with ramus Stenting
- s/p cath today with LAD stenting
- continue ASA/Plavix
- s/p nitro, s/p IV heparin
Recent H. Pylori Infection
- Per family patient had positive breath test just prior to March admission, and started antibiotics yesterday
- Patient continues with nausea/vomiting
- Abx Amoxicillin and Clarithromycin stopped
- GI consulted
- continue PPI, Pepcid
- consider Carafate
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
- Suspect more related to volume depletion in setting of vomiting however chest x-ray raises concern for interstitial pulmonary edema
- monitor BMP with dye load from cath
Severe Aortic Stenosis
- Monitor Is&Os and Daily Weights
- OP CT TAVR workup
Essential Hypertension
- continue amlodipine. doxazosin and metoprolol
Hyperlipidemia
- continue atorvastatin
Chronic Metabolic Acidosis
- continue sodium bicarbonate
Generalized Anxiety Disorder
- continue clonazepam at bedtime
BPH
- continue doxazosin, finasteride and tamsulosin
DVT proph: SCDs
Code Status: Full Code
Anticipated Discharge: > 48 hours
Subjective/Interval History
-
Date of Service: April 19, 2024
seen post-cath, agitated per family
Objective Data
-
Labs:
Laboratory Results
04/19/24 04/19/24
02:20 09:53
WBC 8.1
Hgb 8.8 L
Hct 24.8 L
Plt Count 161
APTT 87.3 H 78.7 H
Sodium 141
Potassium 4.1
Chloride 107
Carbon Dioxide 16 L
BUN 45 H
Creatinine 2.1 H
Glucose 95
Calcium 8.9
Vital Signs:
Vital Signs
Temp Pulse Resp BP Pulse Ox
98.3 F 67 20 114/65 95
04/19/24 11:50 04/19/24 12:00 04/19/24 11:50 04/19/24 11:51 04/19/24 11:50
I&O
04/18/24 04/19/24 04/20/24
06:59 06:59 06:59
Intake Total 843.2 / 843.2
Balance 843.2 / 843.2
Physical Exam
-
General: No Apparent Distress
HEENT: Normocephalic and Atraumatic
Respiratory: Negative Wheezes
Cardiac: Regular Rhythm
GI: Soft
Neuro: AO x 3
Psych: Calm
Data Reviewed
-
Total Time Spent with Patient (in minutes): 42
Labs: Labs Reviewed by me
[2024-04-19 14:20] LABS: ACT-LR - POC 319 Seconds (116-155)
--- NOTE | 2024-04-19 15:16 | ITS.CL.ANGIO ---
Order Planner - Angioplasty
Angioplasty
Procedure Report:
CARDIAC CATHETERIZATION REPORT
Date of Procedure: 04/19/2024
Referring: Gulshan Salmeron M.D.
Indication: Continuous chest pain, positive troponin, known coronary artery disease.
PROCEDURE:
1. Right heart catheterization.
2. Left heart catheterization.
3. Coronary angiography.
4. Aortic valve interrogation.
5. Simultaneous pressure measurement to evaluate for concordance/discordance.
6. Mitral valve interrogation.
7. Successful IFR of the proximal LAD ISR.
8. Successful IVUS guided PCI of the proximal LAD ISR.
ACCESS:
6 German right radial artery.
5 German right antecubital vein.
CATHETERS:
1. 5 German balloon wedge.
2. 5 German JL 3.5.
3. 5 German JR4.
4. 5 German AL-1 (to cross the valve).
5. 6 German Geovani dual-lumen pigtail catheter.
6. 6 German EBU 3.5 guiding catheter.
HEMODYNAMIC DATA
Weight (kg): 75.7
AO (s/d/x mmHg): 140/65/93
LV (s/x mmHg): 172/22 (A wave to 36)
PCWP (a/v/x mmHg): 25/29/22
PA (s/d/x mmHg): 39/20/26
RV (s/x mmHg): 39/14
RA (a/v/x mmHg): 16/16/14
SVC SvO2 (%): 74.8
PA SvO2 (%): 66.7
SaO2 (%): 95.1
Hbg (g/dL): 8.8
CO (L/min): 6.03
CI (L/min/m2): 3.32
TPG (mmHg): 4
PVR (Calderon Units): 0.66
SVR (dynes*seconds*cm^-5): 1048
AVO2 Diff (Volume %): 3.40
AV gradient (x, mmHg): 36.2
AV area (cm2): 0.98
MV gradient (x, mmHg): 3.67
MV area (cm2): 3.3
LEFT VENTRICULOGRAPHY: Not performed. We did perform simultaneous LV/PA and LV/RV tracings given a history of multiple myeloma. The patient's diastolic pressures did not demonstrate a square root sign or rapid upslope (though the LV did show
evidence of diastolic dysfunction). The simultaneous pressures did demonstrate concordance.
CORONARY ANGIOGRAPHY
Dominance: Right.
Left Main: Normal size, trifurcating vessel. There is a 40-50% tapering of the distal left main.
LAD: Normal size vessel giving rise to 1 small diagonal. A patent stent is observed in the proximal vessel. There is a 50-60% lesion in the proximal LAD beginning in the dry creek vessel but extending into the proximal margin of the LAD stent.
There are luminal irregularities elsewhere.
Ramus: Large size vessel supplying much of the anterolateral wall. There is a 40-50% lesion in the proximal vessel. A patent stent is present in the mid vessel with no evidence of in-stent restenosis.
Circumflex: Normal size, nondominant vessel giving rise to 2 obtuse marginals. There is a 30-40% lesion in the mid vessel immediately after the origin of OM1. There is a patent stent in the proximal margin of OM 2.
RCA: Large size, dominant vessel with a large posterolateral arcade. There is a 40% tapering of the proximal vessel. There are luminal irregularities throughout the remainder of the vessel. There is a discrete, 30% lesion in the distal RCA.
INTERVENTIONS
1. Successful IFR of the 50-60% proximal LAD/ISR lesion, demonstrating occlusive disease (IFR = 0.82).
2. Successful IVUS guided PCI of the occlusive proximal LAD lesion (Medtronic Gautam Ramsey 3.5 x 15 RAYNE, postdilated with a 3.75 NC balloon to 20 curtis) with reduction in stenosis to 0%, maintaining GROVER-3 flow.
Narrative:
The decision was made to perform physiologic testing. The diagnostic catheter was removed over a wire and exchanged for a(n) 6 German EBU 3.5 guiding catheter. The guiding catheter was advanced into the ascending aorta and seated in the left main
coronary artery. Additional heparin was given to obtain an ACT greater than 250 seconds. An iFR wire was zeroed outside of the body, then inserted into the guiding sheath. The wire was advanced and the transducer was normalized just outside of the
guiding catheter tip. The wire was advanced into the mid LAD, beyond the stented segment. Three iFR measurements were taken. The lesion was determined to be occlusive (0.82).
The decision was made to proceed with percutaneous coronary intervention. Additional heparin was given and a Power Turn Flex wire was advanced into the distal LAD. The proximal LAD/ISR lesion was predilated with a 3.0 x 12 semi-compliant balloon to
12 curtis. The semi-compliant balloon was removed and a Medtronic [place] Ramsey 3.5 x 15 drug-eluting stent was advanced. The stent was deployed at 12 atmospheres. The stent balloon was removed.
The decision was made to perform intracoronary imaging. An IVUS catheter was advanced through the guiding catheter and into the ostium of the artery. Ring down was performed once the imaging crystal was no longer inside of the guiding catheter. The
IVUS catheter was advanced into the mid LAD, beyond the stented segment. Intravascular ultrasound was performed in a retrograde fashion using a slow pullback. Intracoronary imaging demonstrated good stent apposition throughout the entire stented
segment including the section of overlap. There was significant stent underexpansion in the proximal margin of the original stent.
The IVUS catheter was withdrawn. A 3.75 x 12 noncompliant balloon was advanced into the stent and the distal stent was postdilated to 14 atmospheres. The proximal stent including the overlap was postdilated to 16 curtis. IVUS was repeated and showed
some improvement in the stent expansion, but still less than desirable. The IVUS catheter was withdrawn and the 3.75 x 12 NC balloon was readvanced. The proximal stent margin/overlap was aggressively postdilated to 20 curtis. The noncompliant
balloon was withdrawn.
Angiography was performed in orthogonal views, confirming good stent expansion and an excellent angiographic result. The coronary wire was withdrawn and the guide was disengaged from the artery. The catheter was removed over a standard J-wire.
Closure Device: Vascular band for the right radial artery, manual pressure for the right antecubital vein.
Radiation dose (mGy): 632.97
DAP (cm2.Gy): 47.8965
Fluoroscopy time (minutes): 18.6
Sedation time (minutes): 55
CONCLUSIONS:
1. Right dominant circulation with a 40% lesion in the proximal RCA, a 30% lesion in the distal RCA, a 30-40% lesion in the mid circumflex, a patent stent in the proximal margin of OM 2, a 40-50% lesion in the proximal ramus, a patent stent in the
mid ramus, a 40-50% tapering of the distal left main and occlusive, 50-60% lesion in the proximal LAD beginning in the dry creek vessel but extending into the proximal margin of the LAD stent (IFR = 0.82) status post successful PCI (Medtronic Gautam
Ramsey 3.5 x 15 RAYNE, postdilated with a 3.75 NC balloon to 20 curtis) with reduction in stenosis to 0%, maintaining GROVER-3 flow.
2. Probably severe aortic valve stenosis (mean gradient = 36.2 mmHg, LDUY = 0.98 cm�).
3. Moderately elevated filling pressures (LVEDP = 22 mmHg, PCWP = 22 mmHg at 75.7 kg) with evidence of diastolic dysfunction (LV A wave to 36 mmHg).
4. Concordance on simultaneous LV/PA and LV/RV tracings.
RECOMMENDATIONS:
1. Expectant management after cardiac catheterization via right radial/antecubital approach.
2. Limited weight bearing on the right wrist for one week.
3. Dual antiplatelet therapy with aspirin and clopidogrel for at least 12 months, followed by aspirin indefinitely.
4. Aggressive secondary prevention.
5. TAVR evaluation.
6. Consider SPEP/UPEP and immunofixation given history of multiple myeloma and diastolic dysfunction with concordance.
7. Referral to cardiac rehab.
Copy to: Brittaney Bailon M.D., Toby Mcgregor M.D.
Eugene Kilpatrick DO, FACC, FACP
[2024-04-19] MEDS: NSS 1000 IV (15:53)
--- NOTE | 2024-04-19 16:33 | CM ---
spoke to pt and daughter ( interperter) in room. pt speaks [place]. he lives with his in a 1 [address] homewith no steps to enter, he has a cane and a walker to use when needed. he is current with [facility] and would like them to continue, referral to
be faxed. plan is for dc to [facility] when medically stable.
--- NOTE | 2024-04-19 16:41 | W.PN.UPDATE ---
Update Note
Progress Note Update
Discussed with patient's daughter, Milady, this afternoon. Discussed her father's recent clinical course and previous recommendations as outlined on note earlier today. Recommend ongoing cardiac work-up as per Cardiology and supportive care with IV
PPI and trending his Hgb while inpatient while on DAPT. No plans for repeat endoscopic evaluation at this time. OSH medical records have also been requested. H pylori treatment can be deferred at this time and re-addressed again in the outpatient
setting with his primary Casing Worker, Dr. Frankel. Patient's daughter demonstrated understanding and amenable to the plan. She was appreciative for the call.
See recommendations from same day consult note.
GI team will sign-off. Please call back if you have any other questions or concerns.
--- NOTE | 2024-04-19 17:29 | PTCARENOTE ---
Received patient from assistant laboratory director at 1450. Patient was drowsy, but reacted to voice. Right radial site intact with R-band-- 8 cc of air. Right brachial site clean, dry, and intact. Both sites very ecchymotic. Weak radial pulse. Extremity cool, pale, <2
cap refill, and good sensation. Dr. Kilpatrick communicated he will have stretch pain from the procedure. Agreed to call with any bleeding or additional chest pain. Call reyes within reach.
[2024-04-19] MEDS: LASIX PO (17:35)
[2024-04-19] MEDS: LIPITOR 40 MG PO (17:46)
--- NOTE | 2024-04-19 21:04 | PTCARENOTE ---
R radial and R brachial are c/d/i. No hematoma/bleeding noted. NSS gtt infusing per laborer protocol. Libby GONSALES at bedside translating. Reinforced activity restrictions w/ pt. Pt reports having no CP/discomfort at this time. Tele- SR. HR 60s. Bed
alarm activated. Currently in bed; call reyes w/in reach.
[2024-04-19] MEDS: NORVASC 5 MG PO (22:09)
[2024-04-19] MEDS: PEPCID 10 MG PO (22:09)
[2024-04-19] MEDS: KLONOPIN 0.5 MG PO (22:09)
[2024-04-19] MEDS: MORPHINE SULFATE 2 MG IV (22:20)
[2024-04-20] VITALS (8 sets, daily range): BP systolic 116–146; BP diastolic 54–74; PULSE 90–93; O2SAT 98; BMI 28.7
[2024-04-20 04:49] LABS: Hemoglobin 9.9 g/dL (13.0-18.0); Mean Corp Hgb Conc. 35.4 g/dL (33.0-37.0); Mean Corpuscular Hgb 32.2 pg (27.0-31.0); Mean Corpuscular Volume 91.2 fL (80.0-94.0); Mean Platelet Volume 10.3 fL (7.4-10.4); Platelet Count 173 10^3/uL (130-400); Red Blood Cell Count 3.07 10^6/uL (4.70-6.10); Red Cell Dist. Width 13.2 % (11.5-14.5); White Blood Cell Count 6.8 10^3/uL (4.8-10.8)
[2024-04-20 05:11] LABS: Blood Urea Nitrogen 42 mg/dl (9-20); Carbon Dioxide 19 mmol/L (22-30); Chloride 109 mmol/L (98-107); Estimated Creatinine Clearance 21 ml/min; Glucose 87 mg/dl (70-99); Sodium 143 mmol/L (135-145)
--- NOTE | 2024-04-20 08:40 | W.CARD.POSTP ---
Post PCI Follow Up
Procedure
Procedure/Date: 04/19/24- Successful IFR of the 50-60% proximal LAD/ISR lesion, demonstrating occlusive disease (IFR = 0.82)
s/p IVUS guided PCI of occlusive pLAD w/ALEXANDRE
RHC via RBV- 35/13, PCW 17, LVEDP 22 mmHg
Subjective: denies cp/palps
radial cath site without pain
right brachial vein site without pain
Site
Site: Radial: Right and No ht/bleeding, distal pulses palpable
Tele / EKG
NSR 70s w/lateral TWI
Labs
04/20/24 04:27
04/20/24 04:27
APTT 78.7 Sec (23.4-35.0) H 04/19/24 09:53
Magnesium 2.4 mg/dl (1.6-2.3) H 04/19/24 02:20
04/18/24
10:50
[id number]-[id number] Pept 4240
Laboratory Tests
04/10/24 04/10/24 04/18/24
14:20 16:09 10:50
Troponin I 0.180 H* 0.179 H* 0.381 H*
04/18/24 04/19/24 04/19/24
19:06 02:20 09:53
Troponin I 0.672 H* 0.853 H* D 0.774 H*
DAPT Medication
DAPT Medication: Aspirin 81mg daily and Clopidogrel 75 mg daily
Case Management checking shah: No
Plan
NSTEMI w/peak troponin 0.853
prox LAD ISR, IFR +/flow limiting, s/p ptca/alexandre
RHC with moderately elevated filling pressures
had been on brilinta pre-hospital- this was stopped and changed to plavix with loading dose and now 75mg daily
CKD4 noted- creat 2.1 post dye load and stable- repeat in AM
Severe - TAVR workup ongoing and will followup with Dr. Yoon on 05/04 @9:30am
cardiac rehab consult
cardiology followup with Dr. Bailon in 3-4 weeks
[2024-04-20] MEDS: FLOMAX 0.4 MG PO (09:29)
[2024-04-20] MEDS: PROSCAR 5 MG PO (09:29)
[2024-04-20] MEDS: PLAVIX 75 MG PO (09:29)
[2024-04-20] MEDS: SODIUM BICARBONATE 650 MG PO (09:29)
[2024-04-20] MEDS: LOW STRENGTH ASPIRIN 81 MG PO (09:30)
[2024-04-20] MEDS: TOPROL XL 75 MG PO (09:30)
[2024-04-20] MEDS: PROTONIX IV 40 MG IV ×2 (09:31→19:48)
[2024-04-20] MEDS: NSS (PRESERVATIVE FREE) 10 ML IV ×2 (09:31→19:48)
--- NOTE | 2024-04-20 10:37 | W.PN.CD ---
Today's Communication / Plan
-
Continue DAPT.
Continue gentle diuresis.
Monitor renal function.
TAVR evaluation (primarily outpatient).
Serial EKG. Lower threshold to re-cath and evaluate mid-Ramus lesion, but only if he has symptoms.
Impression / Plan
-
Impression/Plan: 89 y/o Bangladeshi speaking male with HTN, multiple myeloma, CKD, moderate/severe , obstructive CAD (s/p remote PCI to LAD, recent PCI to ramus intermedius) and PUD admitted with epigastric/chest discomfort for three days and
shortness in breath combined with low level but abnormal troponin. The patient has had very non-specific chest pain in the past.
#CAD/non-specific chest discomfort/abnormal troponin
-Acute on chronic.
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
-Troponin =0.381 --> 0.672 --> 0.853 --> 0.774.
-Cardiac catheterization performed yesterday, showing an occlusive de shanti pLAD lesion leading into pLAD stent ISR (iFR
-Continue DAPT with aspirin and clopidogrel (converted from ticagrelor) for at least one year, likely lifelong.
-Continue metoprolol and atorvastatin.
#HFpEF
-Acute on chronic.
-Weight was up 2.1 kg from [place] on 04/10/2024 (78.4 <-- 76.3).
-Multifactorial from CAD and . There could be contribution from multiple myeloma leading to amyloid.
-Continue furosemide, metoprolol succinate and nitro gtt.
-We will check simultaneous LV/RV pressures to evaluate for restriction as well was SPEP/UPEP/IFA.
#Moderate/Severe
-Chronic.
-Mean gradient 34 mmHg on prior echo, 37 mmHg on cath.
-LUDY = 0.98 cm2.
-Currently undergoing evaluation for TAVR.
#HTN
-Chronic, stable.
-Continue metoprolol succinate.
#Multiple Myeloma
-Chronic.
-Associated anemia
#Narcotic/Anxiolytic use
-Acute per daughter.
-Patient had reportedly starting taking some medications when chest discomfort returned post PCI.
Subjective/Interval History:
Cardiac catheterization yesterday showed patent ramus stent and known, residual LAD de shanti disease with pLAD ISR.
iFR of the pLAD lesion was positive (significantly), prompting IVUS guided PCI.
Overnight, no significant events.
Hbg up to 9.9 from 8.8 yesterday (perhaps yesterday was a lab error?).
Creatinine stable at 2.1
EKG continues to show dynamic lateral ST-T wave abnormalities (some this AM, none yesterday post PCI).
DATA:
Cardiac Catheterization/PCI, 04/04/2024:
CONCLUSIONS
1. Right dominant circulation with a 40% tapering of the proximal RCA, a 30% lesion in the distal RCA, a 30-40% in the mid circumflex, a patent stent in proximal OM 2, a 40-50% tapering of the distal left main, a 30-40% lesion in the proximal LAD
leading into in-stent restenosis, a 40% lesion in the proximal ramus and a hazy, 80% ruptured plaque in the mid ramus, status post successful PCI (Medtronic Gautam Jackman 3.0 x 18 RAYNE, postdilated with a 3.0 NC balloon) with reduction in stenosis to
0%, maintaining GROVER-3 flow.
TTE, 04/05/2024:
CONCLUSIONS
Normal left ventricular systolic function. Left ventricular ejection fraction
is 55-60%.
Mild basal inferolateral hypokinesis.
Moderate/severe aortic stenosis. Peak gradient 50mmHg/Mean gradient 34mmHg -
using an LVOT of 1.9cm the calculated aortic valve area is 0.8-0.9cm2. Trace
aortic regurgitation.
Compared to 01/15/19: aortic sclerosis has progressed to moderate/severe .
Basal inferolateral hypokinesis now present.
Cardiac Catheterization/PCI, 04/19/2024:
CONCLUSIONS:
1. Right dominant circulation with a 40% lesion in the proximal RCA, a 30% lesion in the distal RCA, a 30-40% lesion in the mid circumflex, a patent stent in the proximal margin of OM 2, a 40-50% lesion in the proximal ramus, a patent stent in the
mid ramus, a 40-50% tapering of the distal left main and occlusive, 50-60% lesion in the proximal LAD beginning in the [place] vessel but extending into the proximal margin of the LAD stent (IFR = 0.82) status post successful PCI (Medtronic [place]
Jackman 3.5 x 15 RAYNE, postdilated with a 3.75 NC balloon to 20 curtis) with reduction in stenosis to 0%, maintaining GROVER-3 flow.
2. Probably severe aortic valve stenosis (mean gradient = 36.2 mmHg, LUDY = 0.98 cm�).
3. Moderately elevated filling pressures (LVEDP = 22 mmHg, PCWP = 22 mmHg at 75.7 kg) with evidence of diastolic dysfunction (LV A wave to 36 mmHg).
4. Concordance on simultaneous LV/PA and LV/RV tracings.
Physical Exam
Vital Signs/Labs
Vital Signs
Temp Pulse Resp BP Pulse Ox
36.9 C 74 16 130/70 94
04/20/24 08:03 04/20/24 08:01 04/20/24 08:03 04/20/24 08:01 04/20/24 08:03
04/18/24 04/19/24 04/20/24
11:59 11:59 11:59
Actual Weight 78.4 kg 76 kg 75.8 kg
04/20/24 04:27
04/20/24 04:27
APTT 78.7 Sec (23.4-35.0) H 04/19/24 09:53
Magnesium 2.4 mg/dl (1.6-2.3) H 04/19/24 02:20
04/18/24
10:50
Xng-F-Kugxqdtiqhh Pept 4240
LAB Results
04/18/24 04/18/24 04/18/24
10:50 19:06 23:00
Troponin I 0.381 H* 0.672 H* Cancelled
04/19/24 04/19/24
02:20 09:53
Troponin I 0.853 H* D 0.774 H*
Physical Exam
Constitutional: No acute distress and Comfortable
EENT: Anicteric and Moist mucous membranes
Cardiovascular: Rhythm & rate is regular, Pedal edema is absent, JVD pressure is normal, Systolic murmur present and S1S2 is normal
Respiratory: Respiratory effort normal, Lungs clear to auscul., Wheeze Absent, Crackles Absent and Rhonchi Absent
GI: Soft, Distention absent, Flat, Non tender and Normal bowel sounds
Neuro/Psych: AO x 3
Other: Cath Site (Right radial access site is C/D/I.)
Data Reviewed
-
Date of Service: April 20, 2024
Medical Decision Making: Reviewed Test Results, Independent Historian Assessment, Test Interpretation and Review of Case with other Provider
EKG: Tracing Personally Visualized and interpreted and Report Reviewed by me
Echo: Tracing Personally Visualized and interpreted and Report Reviewed by me
X-Ray/CT/US/MRI/NUC/PET: Image Personally Visualized and interpreted and Report Reviewed by me
Medical Tests (PFT, Pathology etc): Image Personally Visualized and interpreted, Report Reviewed by me, Discussed with Nurse, Discussed with Patient and Discussed with Family
Labs: Labs Reviewed by me
Old Records: Reviewed
--- NOTE | 2024-04-20 13:05 | W.PN.HOSP.TC ---
Today's Communication/Plan
-
continue DAPT, medical management
IV Lasix x 1
Assessment / Plan
Assessment / Plan
Assessment:
NSTEMI
- noted recent cath 04/04 with ramus Stenting
- trop peaked .853
-- s/p nitro, s/p IV heparin
- s/p cath 04/19 with LAD stenting
- continue ASA/Plavix
Acute on chronic HFpEF
- IV Lasix x 1
- monitor BMP
Recent H. Pylori Infection
- Per family patient had positive breath test just prior to March admission, and started antibiotics yesterday
- Patient continues with nausea/vomiting
- Abx Amoxicillin and Clarithromycin stopped
- GI consult noted; OP f/u
- continue PPI, Pepcid
- consider Carafate
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
- Suspect more related to volume depletion in setting of vomiting however chest x-ray raises concern for interstitial pulmonary edema
- monitor BMP with dye load from cath
Severe Aortic Stenosis
- Monitor Is&Os and Daily Weights
- OP CT TAVR workup
Essential Hypertension
- continue amlodipine. doxazosin and metoprolol
Hyperlipidemia
- continue atorvastatin
Chronic Metabolic Acidosis
- continue sodium bicarbonate
Generalized Anxiety Disorder
- continue clonazepam at bedtime
BPH
- continue doxazosin, finasteride and tamsulosin
DVT ppx: SCDs
Code Status: Full Code
Anticipated Discharge: 24 - 48 hours
Subjective/Interval History
-
Date of Service: April 20, 2024
some chest discomfort and dyspnea last evening
received IV Lasix x 1 dose
Objective Data
-
Labs:
Laboratory Results
04/20/24
04:27
WBC 6.8
Hgb 9.9 L
Hct 28.0 L
Plt Count 173
Sodium 143
Potassium 4.0
Chloride 109 H
Carbon Dioxide 19 L
BUN 42 H
Creatinine 2.1 H
Glucose 87
Calcium 9.0
Vital Signs:
Vital Signs
Temp Pulse Resp BP Pulse Ox
97.9 F 64 16 146/72 98
04/20/24 12:31 04/20/24 12:31 04/20/24 12:31 04/20/24 09:36 04/20/24 12:31
I&O
04/19/24 04/20/24 04/21/24
06:59 06:59 06:59
Intake Total 843.2 / 843.2
Balance 843.2 / 843.2
Physical Exam
-
General: No Apparent Distress
HEENT: Normocephalic
Respiratory: Negative Wheezes
Cardiac: Regular Rhythm and S1/S2
GI: Soft
Neuro: AO x 3
Psych: Calm
Data Reviewed
-
Total Time Spent with Patient (in minutes): 44
Labs: Labs Reviewed by me
[2024-04-20] MEDS: MIRALAX 17 GRAMS PO (13:56)
[2024-04-20] MEDS: SENOKOT-S 1 TABLET PO ×2 (13:56→19:49)
[2024-04-20] MEDS: LASIX 40 MG IV (13:57)
[2024-04-20] MEDS: LIPITOR 40 MG PO (17:07)
[2024-04-20] MEDS: LASIX 40 MG PO (17:07)
[2024-04-20] MEDS: PEPCID 10 MG PO (22:09)
[2024-04-20] MEDS: KLONOPIN 0.5 MG PO (22:09)
[2024-04-20] MEDS: NORVASC PO (22:09)
--- NOTE | 2024-04-20 22:33 | SUR.PHASEI ---
Received pt at handoff. Tele- SR. HR 60-80s. VSS. R radial and brachial HARNESS RIGGER. Pt has no c/o chest pain/discomfort at this time. Currently in bed; call reyes w/in reach.
[2024-04-21 04:05] VITALS: BP 126/78
[2024-04-21 04:17] VITALS: BMI 28.4
[2024-04-21 04:34] LABS: Hematocrit 29.6 % (39.0-52.0); Hemoglobin 10.3 g/dL (13.0-18.0); Mean Corp Hgb Conc. 34.8 g/dL (33.0-37.0); Mean Corpuscular Hgb 31.9 pg (27.0-31.0); Mean Corpuscular Volume 91.6 fL (80.0-94.0); Mean Platelet Volume 10.3 fL (7.4-10.4); Platelet Count 175 10^3/uL (130-400); Red Blood Cell Count 3.23 10^6/uL (4.70-6.10); Red Cell Dist. Width 13.1 % (11.5-14.5); White Blood Cell Count 8.1 10^3/uL (4.8-10.8)
[2024-04-21 04:57] LABS: Blood Urea Nitrogen 43 mg/dl (9-20); Calcium 8.9 mg/dl (8.4-10.2); Carbon Dioxide 21 mmol/L (22-30); Chloride 107 mmol/L (98-107); Estimated Creatinine Clearance 23 ml/min; Glucose 99 mg/dl (70-99); Potassium 3.9 mmol/L (3.5-5.1); Sodium 142 mmol/L (135-145); eGFR 33.72
--- NOTE | 2024-04-21 08:00 | W.PN.CD ---
Today's Communication / Plan
-
Discharge planning.
Outpatient BMP.
Outpatient TAVR workup.
Impression / Plan
-
Impression/Plan: 89 y/o [place]ritre[place] speaking male with HTN, multiple myeloma, CKD, moderate/severe , obstructive CAD (s/p remote PCI to LAD, recent PCI to ramus intermedius) and PUD admitted with epigastric/chest discomfort for three days and
shortness in breath combined with low level but abnormal troponin. The patient has had very non-specific chest pain in the past.
#CAD/non-specific chest discomfort/abnormal troponin
-Acute on chronic.
-Chest pain relieved after PCI. He is not requiring nitro gtt.
-Troponin =0.381 --> 0.672 --> 0.853 --> 0.774.
-Cardiac catheterization performed yesterday, showing an occlusive [place] pLAD lesion leading into pLAD stent ISR (iFR
-Continue DAPT with aspirin and clopidogrel (converted from ticagrelor) for at least one year, likely lifelong.
-Continue metoprolol and atorvastatin.
#HFpEF
-Acute on chronic.
-Weight 75 kg (<-- 75.8 <-- 76 <-- 77.3 <-- 78.4)
-Multifactorial from CAD and . There could be contribution from multiple myeloma leading to amyloid.
-Simultaneous LV/RV pressures show concordance. SPEP/UPEP + IFA.
-Continue metoprolol succinate.
-Continue furosemide 40 mg PO BID.
-Monitor renal function as an outpatient.
#Moderate/Severe
-Chronic.
-Mean gradient 34 mmHg on prior echo, 37 mmHg on cath.
-LUDY = 0.98 cm2.
-Currently undergoing evaluation for TAVR.
#HTN
-Chronic, stable.
-Continue metoprolol succinate.
#Multiple Myeloma
-Chronic.
-Associated anemia
Subjective/Interval History:
No chest pain (the first time since I have seen him).
Furosemide given yesterday.
Weight down 0.8 kg from yesterday.
Hbg up to 10.3.
Creatinine down to 1.9.
DATA:
Cardiac Catheterization/PCI, 04/04/2024:
CONCLUSIONS
1. Right dominant circulation with a 40% tapering of the proximal RCA, a 30% lesion in the distal RCA, a 30-40% in the mid circumflex, a patent stent in proximal OM 2, a 40-50% tapering of the distal left main, a 30-40% lesion in the proximal LAD
leading into in-stent restenosis, a 40% lesion in the proximal ramus and a hazy, 80% ruptured plaque in the mid ramus, status post successful PCI ([employer] [place] 3.0 x 18 RAYNE, postdilated with a 3.0 NC balloon) with reduction in stenosis to
0%, maintaining GROVER-3 flow.
TTE, 04/05/2024:
CONCLUSIONS
Normal left ventricular systolic function. Left ventricular ejection fraction
is 55-60%.
Mild basal inferolateral hypokinesis.
Moderate/severe aortic stenosis. Peak gradient 50mmHg/Mean gradient 34mmHg -
using an LVOT of 1.9cm the calculated aortic valve area is 0.8-0.9cm2. Trace
aortic regurgitation.
Compared to 01/15/19: aortic sclerosis has progressed to moderate/severe .
Basal inferolateral hypokinesis now present.
Cardiac Catheterization/PCI, 04/19/2024:
CONCLUSIONS:
1. Right dominant circulation with a 40% lesion in the proximal RCA, a 30% lesion in the distal RCA, a 30-40% lesion in the mid circumflex, a patent stent in the proximal margin of OM 2, a 40-50% lesion in the proximal ramus, a patent stent in the
mid ramus, a 40-50% tapering of the distal left main and occlusive, 50-60% lesion in the proximal LAD beginning in the [place] vessel but extending into the proximal margin of the LAD stent (IFR = 0.82) status post successful PCI ([employer] [place] 3.5 x 15 RAYNE, postdilated with a 3.75 NC balloon to 20 curtis) with reduction in stenosis to 0%, maintaining GROVER-3 flow.
2. Probably severe aortic valve stenosis (mean gradient = 36.2 mmHg, LUDY = 0.98 cm�).
3. Moderately elevated filling pressures (LVEDP = 22 mmHg, PCWP = 22 mmHg at 75.7 kg) with evidence of diastolic dysfunction (LV A wave to 36 mmHg).
4. Concordance on simultaneous LV/PA and LV/RV tracings.
Physical Exam
Vital Signs/Labs
Vital Signs
Temp Pulse Resp BP Pulse Ox
36.6 C 73 16 126/78 96
04/21/24 04:06 04/21/24 04:05 04/21/24 04:06 04/21/24 04:05 04/21/24 04:06
04/19/24 04/20/24 04/21/24
11:59 11:59 11:59
Actual Weight 76 kg 75.8 kg 75 kg
04/21/24 04:13
04/21/24 04:13
APTT 78.7 Sec (23.4-35.0) H 04/19/24 09:53
Magnesium 2.4 mg/dl (1.6-2.3) H 04/19/24 02:20
04/18/24
10:50
Msz-F-Ztxeradxvci Pept 4240
LAB Results
04/18/24 04/18/24 04/18/24
10:50 19:06 23:00
Troponin I 0.381 H* 0.672 H* Cancelled
04/19/24 04/19/24
02:20 09:53
Troponin I 0.853 H* D 0.774 H*
Physical Exam
Constitutional: No acute distress and Comfortable
EENT: Anicteric and Moist mucous membranes
Cardiovascular: Rhythm & rate is regular, Pedal edema is absent, JVD pressure is normal, Systolic murmur present and S1S2 is normal
Respiratory: Respiratory effort normal, Lungs clear to auscul., Wheeze Absent, Crackles Absent and Rhonchi Absent
GI: Soft, Distention absent, Flat, Non tender and Normal bowel sounds
Neuro/Psych: AO x 3
Other: Cath Site (Right radial access site is C/D/I.)
Data Reviewed
-
Date of Service: April 21, 2024
Medical Decision Making: Reviewed Test Results, Independent Historian Assessment and Test Interpretation
EKG: Tracing Personally Visualized and interpreted and Report Reviewed by me
Echo: Tracing Personally Visualized and interpreted and Report Reviewed by me
X-Ray/CT/US/MRI/NUC/PET: Image Personally Visualized and interpreted and Report Reviewed by me
Medical Tests (PFT, Pathology etc): Image Personally Visualized and interpreted and Report Reviewed by me
Labs: Labs Reviewed by me
Old Records: Reviewed
[2024-04-21 08:11] VITALS: BP 131/85
[2024-04-21] MEDS: PROTONIX IV 40 MG IV (08:42)
[2024-04-21] MEDS: SODIUM BICARBONATE 650 MG PO (08:43)
[2024-04-21] MEDS: TOPROL XL 75 MG PO (08:43)
[2024-04-21] MEDS: FLOMAX 0.4 MG PO (08:43)
[2024-04-21] MEDS: PLAVIX 75 MG PO (08:43)
[2024-04-21] MEDS: MIRALAX 17 GRAMS PO (08:44)
[2024-04-21] MEDS: PROSCAR 5 MG PO (08:44)
[2024-04-21] MEDS: LASIX 40 MG PO ×2 (08:44→15:54)
[2024-04-21] MEDS: SENOKOT-S 1 TABLET PO (08:44)
[2024-04-21] MEDS: LOW STRENGTH ASPIRIN 81 MG PO (08:44)
[2024-04-21] MEDS: NSS (PRESERVATIVE FREE) 10 ML IV (08:46)
--- NOTE | 2024-04-21 10:31 | PTCARENOTE ---
The patient is aaox3, vss, NSR noted on the monitor. Language line used to communicate. He has no complaints of pain or discomfort. His right wrist and right brachial sites are REMI and ecchymotic. He is ambulatory in his room. His gait is steady. He
is anticipating on going home.
[2024-04-21 12:01] VITALS: BP 146/70
[2024-04-21 13:01] VITALS: BP 120/50; PULSE 59
--- NOTE | 2024-04-21 14:15 | CM ---
CM following for DC planning needs.
Reviewed DC plan for home w/ [facility]. Referral sent, accepted. Will update them on DC date.
Will cont. to follow.
Plan: [facility]
--- NOTE | 2024-04-21 15:22 | W.PN.HOSP.TC ---
Today's Communication/Plan
-
dc to home.[facility]
Assessment / Plan
Assessment / Plan
Assessment:
NSTEMI
- noted recent cath 04/04 with ramus Stenting
- trop peaked .853
- s/p nitro, s/p IV heparin
- s/p cath 04/19 with LAD stenting
- continue ASA/Plavix
Acute on chronic HFpEF
- dc on Lasix BID and BMP f/u in 1 week
Recent H. Pylori Infection
- Per family patient had positive breath test just prior to March admission, and started antibiotics yesterday
- Patient continues with nausea/vomiting
- Abx Amoxicillin and Clarithromycin stopped during hospitalization, family plans to resume and f/u GI OP
- continue PPI, Pepcid
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
- Suspect more related to volume depletion in setting of vomiting however chest x-ray raises concern for interstitial pulmonary edema
- monitor BMP with dye load from cath
Severe Aortic Stenosis
- Monitor Is&Os and Daily Weights
- OP CT TAVR workup
Essential Hypertension
- continue amlodipine. doxazosin and metoprolol
Hyperlipidemia
- continue atorvastatin
Chronic Metabolic Acidosis
- continue sodium bicarbonate
Generalized Anxiety Disorder
- continue clonazepam at bedtime
BPH
- continue doxazosin, finasteride and tamsulosin
DVT ppx: SCDs
Code Status: Full Code
More than 30 minutes spent in discharge including
Final examination of the patient
Summarizing hospital stay
Instructions for continuing care to all relevant caregivers
Preparation of discharge records, prescriptions, and referral forms
Total time spent (in minutes): 41
Anticipated Discharge: Today
Subjective/Interval History
-
Date of Service: April 21, 2024
doing well no complaints
Objective Data
-
Labs:
Laboratory Results
04/21/24
04:13
WBC 8.1
Hgb 10.3 L
Hct 29.6 L
Plt Count 175
Sodium 142
Potassium 3.9
Chloride 107
Carbon Dioxide 21 L
BUN 43 H
Creatinine 1.9 H
Glucose 99
Calcium 8.9
Vital Signs:
Vital Signs
Temp Pulse Resp BP Pulse Ox
98.4 F 65 16 146/70 99
04/21/24 11:59 04/21/24 12:01 04/21/24 11:59 04/21/24 12:01 04/21/24 12:00
I&O
04/20/24 04/21/24 04/22/24
06:59 06:59 06:59
Intake Total 150 / 150 360 / 360
Balance 150 / 150 360 / 360
Physical Exam
-
General: No Apparent Distress
HEENT: Normocephalic and Atraumatic
Respiratory: Negative Wheezes
Cardiac: Regular Rhythm
GI: Soft
Neuro: AO x 3
Psych: Calm
Data Reviewed
-
Total Time Spent with Patient (in minutes): 41
Labs: Labs Reviewed by me
--- NOTE | 2024-04-21 15:27 | W.DS.TRANS ---
DC Summary - [employer]
-
Discharge Instructions:
Discharge Diagnosis/Procedures NSTEMI, angioplasty and stent to Right Coronary
artery
Diet Low Cholesterol,2 Gram Sodium
Activity As tolerated
Blood Work BMP next week - script given
Others Tests FIRST PORTION OF TAVR CT SCAN RE-SCHEDULED TO 10
/14 @ 10:30. YOU WILL GO TO THE OUTPATIENT
INFUSION DEPARTMENT AT 8:30.
Other Services Cardiac Rehab,[facility]
Instructions:
Stand-Alone Forms: DC Instructions- Cath/EP Lab
Changes to Home Medications: Yes
Discharge Medications:
DC Medications w/original date entered in [employer]
amlodipine 5 mg tablet 5 mg PO HS Blood Clot Prevention/Tx 01/15/19
finasteride 5 mg tablet 5 mg PO DAILY Urinary Issue 01/15/19
nitroglycerin 0.4 mg sublingual tablet 0.4 mg sublingual [id number] PRN chest pain 01/15/19
tamsulosin 0.4 mg capsule 0.4 mg PO DAILY Urinary Issue 01/15/19
alprazolam 0.25 mg tablet 0.25 mg PO TIDPRN PRN anxiety 04/04/24
clonazepam 0.5 mg tablet 0.5 mg PO HS Mental Health/Anxiety 04/04/24
famotidine 40 mg tablet 40 mg PO DAILY Gastrointestinal Issue 04/04/24
metoprolol succinate 50 mg tablet,extended release 24 hr 75 mg PO DAILY Heart Failure 04/04/24
oxycodone 5 mg tablet 5 mg PO Q8HPRN PRN moderate to severe pain 04/04/24
aspirin 81 mg chewable tablet 81 mg PO DAILY #30 tabs 04/07/24
atorvastatin 40 mg tablet 40 mg PO QPM #30 tabs 04/07/24
sodium bicarbonate 650 mg tablet 650 mg PO DAILY #20 tabs 04/07/24
sucralfate 100 mg/mL oral suspension (Carafate) 10 ml PO ACHS 7 days #280 mL 04/10/24
acetaminophen 325 mg tablet (Tylenol) 650 mg PO Q4HPRN PRN mild pain 04/18/24
amoxicillin 500 mg tablet 500 mg PO QID Infection 04/18/24
clarithromycin 500 mg tablet 500 mg PO BID Infection 04/18/24
clopidogrel 75 mg tablet 75 mg PO DAILY #90 tabs 04/19/24
docusate sodium 100 mg capsule 100 mg PO BID constipation 04/19/24
pantoprazole 40 mg tablet,delayed release 40 mg PO Q12H Gastrointestinal Issue 04/19/24
furosemide 40 mg tablet 40 mg PO BID AT 0800,1600 #60 tabs 04/21/24
isosorbide mononitrate 30 mg tablet,extended release 24 hr 30 mg PO DAILY Heart Disease/Condition #30 tabs 04/21/24
Home Medication Changes
on Plavix from [facility]
Oral Lasix
Pending Results: No
Total time spent discharging patient (in min): 42
[2024-04-21 15:57] VITALS: BP 126/74
[2024-04-21 16:11] VITALS: BMI 28.4
== END 2024-04-21 16:57 | disposition home health service (06) | DRG 321 ==
LOC: IVU 13:40
PROVIDERS: Internal Medicine Cardiovascular Disease; Nurse Practitioner; Physician Assistant; Physician Assistant Medical; ADMITTING PHYSICIAN Hospitalist; ATTENDING PHYSICIAN Internal Medicine; EMERGENCY PHYSICIAN Emergency Medicine; FAMILY PHYSICIAN Internal Medicine; OTHER PHYSICIAN Internal Medicine Interventional Cardiology; OTHER PHYSICIAN Student in an Organized Health Care Education/Training Program
PROC: B2111ZZ Fluoroscopy of Multiple Coronary Arteries using Low Osmolar Contrast (ICD-10-PCS; 2024-04-18)
PROC: 4A023N8 Measurement of Cardiac Sampling and Pressure, Bilateral, Percutaneous Approach (ICD-10-PCS; 2024-04-18)
PROC: B240ZZ3 Ultrasonography of Single Coronary Artery, Intravascular (ICD-10-PCS; 2024-04-18)
PROC: B2151ZZ Fluoroscopy of Left Heart using Low Osmolar Contrast (ICD-10-PCS; 2024-04-18)
PROC: 027034Z Dilation of Coronary Artery, One Artery with Drug-eluting Intraluminal Device, Percutaneous Approach (ICD-10-PCS; 2024-04-18)
PROC: 4A033BC Measurement of Arterial Pressure, Coronary, Percutaneous Approach (ICD-10-PCS; 2024-04-18)
DX: I21.4 Non-ST elevation (NSTEMI) myocardial infarction (principal); I50.33 Acute on chronic diastolic (congestive) heart failure; C90.00 Multiple myeloma not having achieved remission; I13.0 Hypertensive heart and chronic kidney disease with heart failure and stage 1 through stage 4 chronic kidney disease, or unspecified chronic kidney disease; N18.4 Chronic kidney disease, stage 4 (severe); N17.9 Acute kidney failure, unspecified; E87.22 Chronic metabolic acidosis; D63.1 Anemia in chronic kidney disease; I35.0 Nonrheumatic aortic (valve) stenosis; I25.10 Atherosclerotic heart disease of native coronary artery without angina pectoris; I25.2 Old myocardial infarction; K21.9 Gastro-esophageal reflux disease without esophagitis; K29.70 Gastritis, unspecified, without bleeding; F41.1 Generalized anxiety disorder; K59.00 Constipation, unspecified; E78.2 Mixed hyperlipidemia; N40.0 Benign prostatic hyperplasia without lower urinary tract symptoms; R19.7 Diarrhea, unspecified; R73.9 Hyperglycemia, unspecified; Z95.5 Presence of coronary angioplasty implant and graft; Z79.02 Long term (current) use of antithrombotics/antiplatelets; Z79.82 Long term (current) use of aspirin; Z79.899 Other long term (current) drug therapy; Z87.891 Personal history of nicotine dependence; Z87.11 Personal history of peptic ulcer disease; Z86.19 Personal history of other infectious and parasitic diseases; Z88.0 Allergy status to penicillin; Z82.49 Family history of ischemic heart disease and other diseases of the circulatory system
CPT/HCPCS: 71045; 80048; 80053; 82728; 83540; 83550; 83690; 83735; 83880; 84484; 85025; 85027; 85730; 92978; 93005; 93460; 93799; 96374; 96375; 96376; 97116; 97163; 97166; 99285; C1725; C1753; C1769; C1874; C1894; C9600; Q9967

== ENCOUNTER → 2024-05-03 15:04 | Outpatient (REF) | payer MEDICARE, OTHER, SELFPAY ==
[2024-05-03 16:14] LABS: Blood Urea Nitrogen 55 mg/dl (9-20); Calcium 9.3 mg/dl (8.4-10.2); Carbon Dioxide 26 mmol/L (22-30); Chloride 102 mmol/L (98-107); Glucose 108 mg/dl (70-99); Potassium 4.1 mmol/L (3.5-5.1); Sodium 144 mmol/L (135-145); eGFR 25.48
== END ==
LOC: REG 15:04
PROVIDERS: ATTENDING PHYSICIAN Internal Medicine Cardiovascular Disease
DX: N18.30 Chronic kidney disease, stage 3 unspecified (principal)
CPT/HCPCS: 36415; 80048

== ENCOUNTER 2024-05-07 11:38 | Inpatient (IN) | payer MEDICARE, OTHER, SELFPAY ==
[2024-05-07] VITALS (21 sets, daily range): BP systolic 101–136; BP diastolic 57–90
--- NOTE | 2024-05-07 09:14 | ED.GENMED ---
Addendum entered and electronically signed by Adina Rogers PA-C 05/07/24 10:50:
Reviewed previous records, reviewed recent lift slab operator report 04/19/24
Original Note:
History of Present Illness
<Adina Rogers PA-C - Last Filed: 05/07/24 10:44>
General
Chief Complaint: Chest Pain
Source: patient
Exam Limitations: none
Time Seen by Provider: 05/07/24 09:14
Nursing documentation reviewed up to this point in time: agreed with
History of Present Illness
History of Present Illness:
89-year-old male past medical history of chronic kidney disease, multiple myeloma, stenosis, coronary artery disease presents emergency department today with concerns of chest pain, nausea vomiting for the past week. plumbing technician and family in room
translating for patient. Patient reports his pain feels like when he had an ND in the past. Patient notes that is worse with exertion. Patient follows with Dr. Ram. Patient had recent cardiac catheterization on 04/18/2024. Patient denies
radiation of the pain to his back. Patient denies any fevers chills patient. Patient denies any syncopal episodes. Patient states that he has had times where felt palpitations since hearts racing. Patient states he has been taking nitro and
oxycodone at home without relief. This morning, patient took 3 tablets of 5 mg oxycodone as well as 2 tablets of nitro but subsequently vomited. Patient denies any lightheadedness or dizziness or syncopal episodes.
Past History
<Adina Rogers PA-C - Last Filed: 05/07/24 10:44>
Past History
ED Past Medical History: CAD, Cancer (Multiple Myeloma), GERD, HTN, Hypercholesterolemia and Other (Angina, Ulcers)
ED Past Surgical History: Cardiac (Stents X2)
Social History
Tobacco: Former smoker
Alcohol: None
Drug: None
Personal:
Living: with family
Employment: Other
Family History
Family History: Other (Sister with ND, multiple sisters with hypertension)
Review of Systems
<Adina Rogers PA-C - Last Filed: 05/07/24 10:44>
Review of Systems
All Other Systems: ROS reviewed and negative except as documented in HPI and ROS
Phy Exam
<Adina Rogers PA-C - Last Filed: 05/07/24 10:44>
Physical Exam
Physical Exam:
General: Patient diaphoretic, tachypneic. Acute distress secondary to pain
Skin: Warm, no rashes or lesions
Head: Normocephalic, atraumatic
Eyes: Sclera non-icteric. EOMs intact. PERRLA.
Cardiac: Regular rate and rhythm, 2+ systolic murmur noted
Peripheral Vascular: No lower extremity swelling or edema
Pulm: Tachypnea noted, no wheezes, rales, or rhonchi
Abdomen: No abdominal tenderness to palpation, no pulsatile abdominal mass
Neuro: CN II-XII intact, no focal neurologic deficits.
Psychiatric: Appropriate mood and affect.
Scores
<Adina Rogers PA-C - Last Filed: 05/07/24 10:44>
Heart Score for Chest Pain Patients
STEMI patient?: No
History: Highly Suspicious
ECG: Significant ST-Depression
Age: >/= 65 years
Risk Factors: >/= 3 Risk Factors or History of CAD
Troponin: >/= 3 x Normal Limit
Heart Score for Chest Pain Patients: 10
Heart Score Risk: 72.7 % MACE over next 6 weeks
Course
<Adina Rogers PA-C - Last Filed: 05/07/24 10:44>
Orders/Labs/Results
Orders:
Orders
05/07/24 09:06
EKG [Electrocardiogram (*1)] Urgent
Reason for Study: Chest Pain
EKG- Treatment ONCE
05/07/24 09:21
Complete Blood Count/With Diff Urgent
Comprehensive Metabolic Panel Urgent
Prothrombin Time Urgent
Troponin I Urgent
05/07/24 09:33
Heparin 4,000 units IV NOW STA
Nitroglycerin 100 mg/250 ml [Nitroglycerin Premix] 100 mg in 250 ml IV NOW
Currently infusing. Continue current dose and titrate:: Yes
Titrate to keep:: Chest Pain Free
Titrate by mcg/min:: 5 mcg/min, may increase by 10 mcg/min if dose > 20 mcg/min
Frequency of titrations (minutes):: every 3-5 minutes
Maximum dose in mcg/min:: 200
Begin to taper infusion when:: Remained at goal for 2hrs
Taper by mcg/min:: 5 mcg/min
Frequency of taper (minutes) if patient maintains goal:: 30
Taper to off?: Yes
If infusion off & no longer maintaining goal:: Contact Provider
Nitroglycerin Sublingual [Nitrostat (Sublingual)] 0.4 mg SL NOW STA
05/07/24 09:36
PTT Urgent
Comment: Obtain baseline before beginning heparin infusion if not already collected
Nursing to Place Non Medication Order As Directed
Physician Order: PTT 6 hours after initial start of Heparin infusion
Above order entered?: Yes
05/07/24 09:45
Heparin 25729 Units/250 ml 25,000 units in 250 ml .ROUTE .STK-MED
Heparin 93736 Units/250 ml 25,000 units in 250 ml IV PER PROTOCOL
Weight to be used for heparin protocol in kilograms (kg):: 77.2
Protocol:: Cardiac Tx/Acute Coronary
PTT Goal Range to be used:: PTT 73 to 111 seconds
Order type:: Initial
INITIAL Infusion Dose (UNITS/KG/hr) & then follow protocol:: 12 units/kg/hr
Infusion Dose in UNITS/hr & then follow protocol (UNITS/hr):: 950
INFUSION RATE in mL/hr & then follow protocol (mL/hr):: 9.5
PTT less than or equal to 64 seconds:: Increase rate by 200 units/hr (+ 2 mL/hr)
PTT 64.1 to 72.9 seconds:: Increase rate by 100 units/hr (+ 1 mL/hr)
PTT 73 to 111 seconds:: Target Range. No change in rate.
PTT 111.1 to 130.9 seconds:: Decrease rate by 100 units/hr (- 1 mL/hr)
PTT 131 to 199.9 seconds:: HOLD for 1 hr. Then decrease rate by 200 units/hr (- 2 mL/hr)
PTT greater than or equal to 200 seconds:: HOLD for 2 hrs & Notify Provider. Then decrease by 200 units/hr (-
2 mL/hr)
Lab follow-up:: Each change, PTT q6h until 2 consecutive are therapeutic. Then PTT
daily.
Abnormal Lab Results
05/07/24
09:21
RBC 3.29 L 10^6/uL
(4.70-6.10)
Hgb 10.5 L g/dL
(13.0-18.0)
Hct 30.7 L %
(39.0-52.0)
MCH 31.9 H pg
(27.0-31.0)
MPV 10.5 H fL
(7.4-10.4)
Carbon Dioxide 21 L mmol/L
(22-30)
BUN 50 H mg/dl
(9-20)
Creatinine 2.5 H mg/dL
(0.7-1.3)
Glucose 128 H mg/dl
(70-99)
Troponin I 0.968 H* ng/ml
05/07/24 09:21
05/07/24 09:21
Vital Signs
Initial and Last Documented VS:
Initial Vital Signs
Pulse Resp BP Pulse Ox
80 22 136/89 90
05/07/24 09:05 05/07/24 09:05 05/07/24 09:05 05/07/24 09:05
Last Documented Vital Signs
Temp Pulse Resp BP Pulse Ox
98.2 F 76 15 116/57 96
05/07/24 09:23 05/07/24 10:15 05/07/24 10:15 05/07/24 10:00 05/07/24 10:00
<Raffi Strickland, DO - Last Filed: 05/07/24 10:29>
Orders/Labs/Results
Orders:
Orders
05/07/24 09:06
EKG [Electrocardiogram (*1)] Urgent
Reason for Study: Chest Pain
EKG- Treatment ONCE
05/07/24 09:21
Complete Blood Count/With Diff Urgent
Comprehensive Metabolic Panel Urgent
Prothrombin Time Urgent
Troponin I Urgent
05/07/24 09:33
Heparin 4,000 units IV NOW STA
Nitroglycerin 100 mg/250 ml [Nitroglycerin Premix] 100 mg in 250 ml IV NOW
Currently infusing. Continue current dose and titrate:: Yes
Titrate to keep:: Chest Pain Free
Titrate by mcg/min:: 5 mcg/min, may increase by 10 mcg/min if dose > 20 mcg/min
Frequency of titrations (minutes):: every 3-5 minutes
Maximum dose in mcg/min:: 200
Begin to taper infusion when:: Remained at goal for 2hrs
Taper by mcg/min:: 5 mcg/min
Frequency of taper (minutes) if patient maintains goal:: 30
Taper to off?: Yes
If infusion off & no longer maintaining goal:: Contact Provider
Nitroglycerin Sublingual [Nitrostat (Sublingual)] 0.4 mg SL NOW STA
05/07/24 09:36
PTT Urgent
Comment: Obtain baseline before beginning heparin infusion if not already collected
Nursing to Place Non Medication Order As Directed
Physician Order: PTT 6 hours after initial start of Heparin infusion
Above order entered?: Yes
05/07/24 09:45
Heparin 51070 Units/250 ml 25,000 units in 250 ml .ROUTE .STK-MED
Heparin 85212 Units/250 ml 25,000 units in 250 ml IV PER PROTOCOL
Weight to be used for heparin protocol in kilograms (kg):: 77.2
Protocol:: Cardiac Tx/Acute Coronary
PTT Goal Range to be used:: PTT 73 to 111 seconds
Order type:: Initial
INITIAL Infusion Dose (UNITS/KG/hr) & then follow protocol:: 12 units/kg/hr
Infusion Dose in UNITS/hr & then follow protocol (UNITS/hr):: 950
INFUSION RATE in mL/hr & then follow protocol (mL/hr):: 9.5
PTT less than or equal to 64 seconds:: Increase rate by 200 units/hr (+ 2 mL/hr)
PTT 64.1 to 72.9 seconds:: Increase rate by 100 units/hr (+ 1 mL/hr)
PTT 73 to 111 seconds:: Target Range. No change in rate.
PTT 111.1 to 130.9 seconds:: Decrease rate by 100 units/hr (- 1 mL/hr)
PTT 131 to 199.9 seconds:: HOLD for 1 hr. Then decrease rate by 200 units/hr (- 2 mL/hr)
PTT greater than or equal to 200 seconds:: HOLD for 2 hrs & Notify Provider. Then decrease by 200 units/hr (-
2 mL/hr)
Lab follow-up:: Each change, PTT q6h until 2 consecutive are therapeutic. Then PTT
daily.
Abnormal Lab Results
05/07/24
09:21
RBC 3.29 L 10^6/uL
(4.70-6.10)
Hgb 10.5 L g/dL
(13.0-18.0)
Hct 30.7 L %
(39.0-52.0)
MCH 31.9 H pg
(27.0-31.0)
MPV 10.5 H fL
(7.4-10.4)
Carbon Dioxide 21 L mmol/L
(22-30)
BUN 50 H mg/dl
(9-20)
Creatinine 2.5 H mg/dL
(0.7-1.3)
Glucose 128 H mg/dl
(70-99)
Troponin I 0.968 H* ng/ml
05/07/24 09:21
05/07/24 09:21
Vital Signs
Initial and Last Documented VS:
Initial Vital Signs
Pulse Resp BP Pulse Ox
80 22 136/89 90
05/07/24 09:05 05/07/24 09:05 05/07/24 09:05 05/07/24 09:05
Last Documented Vital Signs
Temp Pulse Resp BP Pulse Ox
98.2 F 76 15 116/57 96
05/07/24 09:23 05/07/24 10:15 05/07/24 10:15 05/07/24 10:00 05/07/24 10:00
Chaimlt;Adina Rogers PA-C - Last Filed: 05/07/24 10:44>
MDM/Problems Addressed
Differential Diagnosis Includes:
ddx include acute coronary syndrome, aortic dissection, pericarditis, pancreatitis
MDM/Problems Addressed:
89-year-old male past medical history of coronary artery disease, chronic kidney disease, aortic stenosis, with myeloma presents to the emergency department today with multiple days of chest pain, nausea, vomiting. His EKG reveals ST depression
anteriorly concerning for anterior ischemia. Cardiology immediately notified, Dr. Ramos at bedside. Troponin 0.968, patient transported to lift slab operator.
Chronic conditions affecting care:
CKD3, coronary artery disease, HTN, HLP, multiple myeloma
Acute Exacerbation and/or Progression of Chronic Illness:
coronary artery disease
<Adina Rogers PA-C - Last Filed: 05/07/24 10:44>
*Pulse Oximetry
Patient hypoxic: no
*EKG
Interpreted by ED Provider?: Yes
EKG Intrepretation Date: 05/07/24
Interpretation: abnormal
Comparison EKG: changes noted
Heart Rate: 86
Rate: normal
Rhythm: sinus
Ischemia: T-wave inversion
<Raffi Strickland DO - Last Filed: 05/07/24 10:29>
*Critical Care Note
Total Time (30-74mins, 75-104mins- exclusive of procedures): 45min
comment:
I personally evaluated patient at bedside. His overall appearance was rather concerning. Elevated troponin noted. Markedly abnormal EKG. Emergently coordinated care with cardiology. To be going to the [facility] urgently. He was also emergently
heparinized.
<Adina Rogers PA-C - Last Filed: 05/07/24 10:44>
Patient Management
Escalation/DeEscalation of care consider admission/obs:
Hospitalist notified, patient referred for admission
ED Attending Note
<Adina Rogers PA-C - Last Filed: 05/07/24 10:44>
-
Portions of this chart may have been created with voice recognition software.� Occasional wrong word or��sound alike� substitutions may have occurred due to the inherent limitations of voice recognition software.
<Raffi Strickland DO - Last Filed: 05/07/24 10:29>
ED Attending Note
Patient seen and examined by attending physician: Yes
I performed the substantive portion of visit, reviewed & personally made and approve the management plan that is documented in note by myself or MOON.: Yes
I performed a history and physical exam of patient and discussed management with resident, I reviewed resident's note and agree with documented findings and plan of care.: Yes
ED Attending Note:
I evaluated the patient at bedside. EKG is markedly concerning for posterior STEMI which is new in comparison to 04/20/2024. He appears uncomfortable. I immediately texted [facility] and interventional cardiology but not call a STEMI
initially as he was just dented and has had symptoms for a week.
Discharge Plan
Departure
Patient Disposition: Admit
Date of Disposition: 05/07/24
Time of Disposition: 09:47
Presentation/result/management discussed w/ accepting MD/DO: Hospitalist
Patient with high blood pressure during this ER visit?: Yes
Condition: Fair
Discharge Problem:
Unstable angina
Prescriptions:
No Action
amlodipine 5 MG tablet
5 mg PO HS
tamsulosin 0.4 MG capsule
0.4 mg PO DAILY
nitroglycerin 0.4 MG tablet, sublingual
0.4 mg sublingual [id number] PRN (Reason: chest pain)
finasteride 5 MG tablet
5 mg PO DAILY
metoprolol succinate 50 mg tablet extended release 24 hr
75 mg PO DAILY
famotidine 40 mg tablet
40 mg PO DAILY
clonazepam 0.5 mg tablet
0.5 mg PO HS
Patient Comments:
04/10/2024: last filled 03/11/24, 60 tabs for 60 days from [facility]
alprazolam 0.25 mg tablet
0.25 mg PO TIDPRN PRN (Reason: anxiety)
Patient Comments:
04/10/2024: last filled 03/12/24, 30 tabs for 10 days from [facility]
oxycodone 5 mg tablet
5 mg PO Q8HPRN PRN (Reason: moderate to severe pain)
Patient Comments:
04/10/2024: last filled 03/11/24, 30 tabs for 7 days from [facility]
atorvastatin 40 mg Tablet
40 mg PO QPM Qty: 30 11RF
aspirin 81 mg Tablet,Chewable
81 mg PO DAILY Qty: 30 11RF
sodium bicarbonate 650 mg Tablet
650 mg PO DAILY Qty: 20 0RF
sucralfate [Carafate] 100 mg/mL suspension
10 ml PO ACHS 7 Days Qty: 280 0RF
Patient Comments:
phar
acetaminophen [Tylenol] 325 mg Tablet
650 mg PO Q4HPRN PRN (Reason: mild pain)
pantoprazole 40 mg tablet,delayed release (DR/EC)
40 mg PO Q12H
docusate sodium 100 mg capsule
100 mg PO BID
clopidogrel 75 mg Tablet
75 mg PO DAILY Qty: 90 3RF
furosemide 40 mg Tablet
40 mg PO BID AT 0800,1600 Qty: 60 0RF
isosorbide mononitrate 30 mg tablet extended release 24 hr
30 mg PO DAILY Qty: 30 0RF
Interventions
Interventions:
*Risk Screen - Suicide Last Done: 05/07/24 10:02
*General Assessment Last Done: 05/07/24 09:23
*Neglect/Abuse Screening Last Done: 05/07/24 10:02
*ED COVID-19 Vaccine History Last Done: 05/07/24 09:30
*Nursing Disposition Last Done: 05/07/24 10:08
ED- Cardiac Assessment Last Done: 05/07/24 10:01
Discharge Date and Time
Discharge Date/Time: 05/07/24 10:39
Print Language: FAROESE
[2024-05-07 09:37] LABS: Hematocrit 30.7 % (39.0-52.0); Hemoglobin 10.5 g/dL (13.0-18.0); Mean Corp Hgb Conc. 34.2 g/dL (33.0-37.0); Mean Corpuscular Hgb 31.9 pg (27.0-31.0); Mean Corpuscular Volume 93.3 fL (80.0-94.0); Mean Platelet Volume 10.5 fL (7.4-10.4); Platelet Count 168 10^3/uL (130-400); Red Blood Cell Count 3.29 10^6/uL (4.70-6.10); Red Cell Dist. Width 12.9 % (11.5-14.5); White Blood Cell Count 9.4 10^3/uL (4.8-10.8)
[2024-05-07 09:40] LABS: INR 1.11; PT 14.1 Sec (11.4-14.6)
--- NOTE | 2024-05-07 09:42 | CON.CAR ---
Addendum entered and electronically signed by Adrian Rodrigues MD 05/07/24 10:29:
Patient seen and examined in collaboration with ARTILLERY MAINTENANCE SUPERVISOR; agree with below.
89-year-old male with known extensive coronary artery disease (including recent RAYNE to ramus on 04/04/2024 and RAYNE to proximal LAD secondary to in-stent restenosis on 04/19/2024), moderate to severe aortic stenosis, hypertension, hyperlipidemia, and
CKD presenting with significant chest pain (and associated nausea/vomiting); patient was found to have significant ST depression in the anterolateral leads on his EKG and 04/20 chest pain still.
-Patient discussed with interventional cardiology; patient will be taken for urgent cardiac catheterization.
-Heparin initialized in the ER; patient is on aspirin and Plavix at home and states that he has been compliant.
-Cardiac catheterization lab will call for patient soon.
-Given comorbidities, including significant CKD, the patient should be admitted to the Hospitalist service.
-Recommend Nephrology consultation.
Original Note:
Consultation
Consultation Request
Date/Time Consultation Requested: 05/07/24 9:30a
Date/Time Consultation Performed: 05/07/24 9:35a
Requesting Provider: Dr. Strickland
Performing Provider: LUZ Hunt for Dr. Rodrigues
Reason for Consultation: chest pain
Medical History
-
Chief Complaint: chest pain
History of Present Illness:
Mr. Day is an 89 y/o [place]itanian speaking male with HTN, multiple myeloma, CKD, PUD, moderate/severe , obstructive CAD (s/p remote PCI to LAD, RAYNE to ramus intermedius 04/04/24 and RAYNE proximal LAD ISR 04/19/24), who presents to the ER with c/o chest
pain for 2 days. He has been taking SL NTG w/o relief. His states he took 2 SL NTG and 3 Oxycodone 5mg tablets this am for the chest pain, then vomited twice and they brought him in for evaluation. EKG with significant ST changes, NSTEMI.
Labs are pending. IV Heparin, IV NTG drips started in the ER. Plan for medical laboratory assistant now.
Past Medical History
Past Medical History: Other (as above)
Past Surgical History: Other (as above)
Social History
Personal:
Living: With Family
Family History
Family History: Reviewed & Not Pertinent
Allergies / Home Medications
Allergy/AdvReac Type Severity Reaction Status Date / Time
Penicillins Allergy Unknown Verified 04/10/24 13:52
�Medication �Instructions �Recorded �Confirmed �Type
amlodipine 5 mg tablet 5 mg PO HS Blood Clot Prevention/Tx 01/15/19 04/18/24 History
finasteride 5 mg tablet 5 mg PO DAILY Urinary Issue 01/15/19 04/18/24 History
nitroglycerin 0.4 mg sublingual 0.4 mg sublingual [id number] PRN 01/15/19 04/18/24 History
tablet chest pain
tamsulosin 0.4 mg capsule 0.4 mg PO DAILY Urinary Issue 01/15/19 04/18/24 History
alprazolam 0.25 mg tablet 0.25 mg PO TIDPRN PRN anxiety 04/04/24 04/18/24 History
clonazepam 0.5 mg tablet 0.5 mg PO HS Mental Health/Anxiety 04/04/24 04/18/24 History
famotidine 40 mg tablet 40 mg PO DAILY Gastrointestinal 04/04/24 04/18/24 History
Issue
metoprolol succinate 50 mg 75 mg PO DAILY Heart Failure 04/04/24 04/18/24 History
tablet,extended release 24 hr
oxycodone 5 mg tablet 5 mg PO Q8HPRN PRN moderate to 04/04/24 04/18/24 History
severe pain
aspirin 81 mg chewable tablet 81 mg PO DAILY #30 tabs 04/07/24 04/18/24 Rx
atorvastatin 40 mg tablet 40 mg PO QPM #30 tabs 04/07/24 04/18/24 Rx
sodium bicarbonate 650 mg tablet 650 mg PO DAILY #20 tabs 04/07/24 04/18/24 Rx
sucralfate 100 mg/mL oral 10 ml PO ACHS 7 days #280 mL 04/10/24 04/18/24 Rx
suspension (Carafate)
acetaminophen 325 mg tablet 650 mg PO Q4HPRN PRN mild pain 04/18/24 04/18/24 History
(Tylenol)
clopidogrel 75 mg tablet 75 mg PO DAILY #90 tabs 04/19/24 Rx
docusate sodium 100 mg capsule 100 mg PO BID constipation 04/19/24 04/18/24 History
pantoprazole 40 mg tablet,delayed 40 mg PO Q12H Gastrointestinal 04/19/24 04/18/24 History
release Issue
furosemide 40 mg tablet 40 mg PO BID AT 0800,1600 #60 tabs 04/21/24 Rx
isosorbide mononitrate 30 mg 30 mg PO DAILY Heart 04/21/24 04/18/24 Rx
tablet,extended release 24 hr Disease/Condition #30 tabs
Review of Systems
-
History Source: Patient and Family ( at bedside and daughter on the phone)
All other systems: Negative unless noted
Physical Exam
Vital Signs
Temp Pulse Resp BP Pulse Ox
98.2 F 85 23 129/76 89
05/07/24 09:23 05/07/24 09:21 05/07/24 09:21 05/07/24 09:21 05/07/24 09:21
Lab Results
05/07/24 09:21
Physical Exam
General: Well Developed and Other (uncomfortable from chest pain)
HEENT: Normocephalic and Anicteric
Respiratory: Crackles, Rhonchi and Non Labored Respirations
Cardiac: S1/S2 and Regular Rhythm
Breast: Deferred by me
GI: Soft and Normal Bowel Sounds
Rectal: Deferred by Provider
Genito-urinary: No Costovertebral Tender
Musculoskeletal: No Clubbing and No Edema
Skin: Warm and Dry
Neuro: AO x 3
Psych: Calm
Impression / Plan
-
Chest pain/NSTEMI - acute ST changes on EKG.
- severe pain for 2 days w/o relief after SL NTG.
- labs still pending.
- notified Dr. Lynn and plan for medical laboratory assistant this morning.
CAD - multiple stents.
- recent PCI RAYNE to ramus intermedius 04/04/24 and RAYNE proximal LAD ISR 04/19/24.
- reports compliance with ASA and Plavix.
- plan as above.
HFpEF - acute on chronic.
- mildly overloaded.
- continue Lasix post cath and reassess.
- d/c weight 165 lbs on 04/21, today weight 170 lbs.
Moderate/Severe - Mean gradient 34 mmHg on prior echo, 37 mmHg on cath.
- LUDY = 0.98 cm2.
- undergoing evaluation for TAVR.
HTN - chronic.
- monitor on meds.
CKD - 3b.
- creatinine 2.4 on 05/03; labs from today pending.
Multiple Myeloma - Chronic with associated anemia.
Data Reviewed
-
EKG: Tracing Personally Visualized and interpreted
Medical Tests (Nuc Med, Echo etc): Report Reviewed by me (echo, medical laboratory assistant)
Labs: Labs Reviewed by me
Old Records: Reviewed
[2024-05-07] MEDS: HEPARIN 4000 UNITS IV (09:48)
[2024-05-07] MEDS: HEPARIN 25000 UNITS/250 ML IV ×2 (09:49→14:34)
[2024-05-07] MEDS: NITROGLYCERIN PREMIX 250 IV (09:57)
[2024-05-07 10:05] LABS: ALT (SGPT) 18 U/L (0-50); AST (SGOT) 36 U/L (17-59); Albumin 4.6 g/dl (3.5-5.0); Alkaline Phosphatase 82 U/L (38-126); Blood Urea Nitrogen 50 mg/dl (9-20); Calcium 8.6 mg/dl (8.4-10.2); Carbon Dioxide 21 mmol/L (22-30); Chloride 101 mmol/L (98-107); Glucose 128 mg/dl (70-99); Potassium 4.1 mmol/L (3.5-5.1); Sodium 141 mmol/L (135-145); Total Bilirubin 0.7 mg/dl (0.2-1.3); Total Protein 7.8 g/dl (6.3-8.2); eGFR 24.26
[2024-05-07 10:06] LABS: Troponin I 0.968 ng/ml
[2024-05-07 10:42] LABS: Absolute Neutrophils -Man Diff 6.1 10^3/uL (1.4-6.5); Atypical Lymphocytes 3 %; Band Neutrophils 0 % (0-3); Eosinophils 1 % (0-6); Lymphocytes 23 % (20-51); Monocytes 4 % (2-9); Plasmacytoid Lymphocytes 4 %; Segmented Neutrophils 65 % (42-75)
[2024-05-07 10:43] LABS: Normal RBC Morphology No; Platelets Checked Yes; Rouleaux Moderate
[2024-05-07 10:44] LABS: Total Cells Counted 100
[2024-05-07 10:44] LABS: ACT-LR - POC 268 Seconds (116-155)
--- NOTE | 2024-05-07 11:40 | PTCARENOTE ---
Pt arrived from slab inspector via bed. He is Botswanan speaking. Translation line and the pt's utilized to introduce myself and explain post procedural plan of care, regarding bedrest, frequent pulse checks and management of the TR band, and use of
call reyes. . He demonstrated his understanding. Right Ac #18g protective catheter with nitroglycerin. Left ac #18g protective catheter flushed and patent. Breath sounds dim in the bases with bibasilar crackles right >left. Mild DAWN with turning,
pulse ox 92% on right finger. +BSx4. Nausea. Points to epigastric area of discomfort. He has scattered ecchymosis on his upper and lower extremities and on his chest. Safe environment maintained. Supportive care given.
[2024-05-07 12:52] LABS: Magnesium 2.6 mg/dl (1.6-2.3); Phosphorus 3.8 mg/dl (2.5-4.5)
[2024-05-07 12:57] LABS: APTT 120.4 Sec (23.4-35.0)
--- NOTE | 2024-05-07 13:14 | PTCARENOTE ---
Dr. Lynn provided an update over the phone. Reviewed hemodynamics, reviewed the nature of his pain possibly being from his multiple myeloma, or perhaps gastric in nature. He is aware he also has diuresed 500ml's since Lasix administration.
--- NOTE | 2024-05-07 14:15 | HPS.HSE ---
Family Physician
-
Family Physician: Toby Mcgregor
Chief Complaint
-
Chest pain, nausea and vomiting
History of Present Illness
The patient is a 89 year old male with a PMH of extensive coronary artery disease, moderate to severe aortic stenosis, hypertension, hyperlipidemia, and CKD presented to ER today with concerns of severe chest pain, nausea vomiting for the past
week. Patient reported his pain like his WV pain which he had WV in the past. And he reported more pain today than the past. Patient reports his pain on his chest and denies radiating to his back but he reported having palpitations. Patient took
nitro and oxycodone at home without any relief. At the present to ER, patient was found significant ST depression in the anterolateral leads on his EKG. The patient had a cardiac catheterization which released the patient did not require a PCI.
Medical History
Past Medical History
Past Medical History: Reports Other ( CAD s/p Multiple Stent, moderate to severe aortic stenosis, HTN, HL, and CKD, anxiety, multiple myeloma,GERD and gastritis with recurrent H. pylori infection re-occurring about every 2 years,BPH )
Additional Past Medical History:
CAD s/p Multiple Stent, moderate to severe aortic stenosis, HTN, HL, and CKD, anxiety, multiple myeloma,GERD and gastritis with recurrent H. pylori infection re-occurring about every 2 years,BPH
Past Surgical History: Reports Other (CAD with stents )
Additional Past Surgical History:
Stent for CAD
Social History
Tobacco: Former Smoker (Quit 20 years ago)
Alcohol: None
Drug: None
Personal: Single
Living: With Family
Employment: Retired
Family History
Family History: Other (Patient's parents when he was a child unsure sister history of CAD, MIs)
Allergies / Home Medications
Allergies reflects when Allergies were last updated in [facility].
Home Medications with original date entered in [facility]
Allergy/Medication List:
Allergies
Allergy/AdvReac Type Severity Reaction Status Date / Time
Penicillins Allergy Unknown Verified 04/10/24 13:52
Home Medications
amlodipine 5 mg tablet 5 mg PO HS Blood Clot Prevention/Tx 01/15/19
finasteride 5 mg tablet 5 mg PO DAILY Urinary Issue 01/15/19
nitroglycerin 0.4 mg sublingual tablet 0.4 mg sublingual [id number] PRN chest pain 01/15/19
tamsulosin 0.4 mg capsule 0.4 mg PO DAILY Urinary Issue 01/15/19
alprazolam 0.25 mg tablet 0.25 mg PO TIDPRN PRN anxiety 04/04/24
clonazepam 0.5 mg tablet 0.5 mg PO HS Mental Health/Anxiety 04/04/24
famotidine 40 mg tablet 40 mg PO DAILY Gastrointestinal Issue 04/04/24
metoprolol succinate 50 mg tablet,extended release 24 hr 75 mg PO DAILY Heart Failure 04/04/24
oxycodone 5 mg tablet 5 mg PO Q8HPRN PRN moderate to severe pain 04/04/24
aspirin 81 mg chewable tablet 81 mg PO DAILY #30 tabs 04/07/24
atorvastatin 40 mg tablet 40 mg PO QPM #30 tabs 04/07/24
sodium bicarbonate 650 mg tablet 650 mg PO DAILY #20 tabs 04/07/24
sucralfate 100 mg/mL oral suspension (Carafate) 10 ml PO ACHS 7 days #280 mL 04/10/24
acetaminophen 325 mg tablet (Tylenol) 650 mg PO Q4HPRN PRN mild pain 04/18/24
clopidogrel 75 mg tablet 75 mg PO DAILY #90 tabs 04/19/24
docusate sodium 100 mg capsule 100 mg PO BID constipation 04/19/24
pantoprazole 40 mg tablet,delayed release 40 mg PO Q12H Gastrointestinal Issue 04/19/24
furosemide 40 mg tablet 40 mg PO BID AT 0800,1600 #60 tabs 04/21/24
isosorbide mononitrate 30 mg tablet,extended release 24 hr 30 mg PO DAILY Heart Disease/Condition #30 tabs 04/21/24
Review of Systems
-
EENT: Reports See HPI
Respiratory: Reports No Symptoms
Cardiac: Reports See HPI
Abdomen/GI: Reports See HPI
: Reports No Symptoms
Musculoskeletal: Reports No Symptoms
Neurological: Reports No Symptoms
Physical Exam
Vital Signs
Vital Signs
Temp Pulse Resp BP Pulse Ox
97.6 F 73 12 109/69 97
05/07/24 12:04 05/07/24 13:45 05/07/24 13:45 05/07/24 13:30 05/07/24 13:45
Physical Exam
General: Well Developed, Well Nourished and Appears in Distress
HEENT: NormoCephalic and Anicteric
Respiratory: Clear
Cardiac: S1/S2, Regular Rhythm and Murmur (Systolic )
GI: Soft and Non Tender
Neuro: Awake, Alert and Oriented
Laboratory Results
-
05/07/24 09:21
05/07/24 09:21
Laboratory Results
PT 14.1 Sec (11.4-14.6) 05/07/24 09:21
INR 1.11 05/07/24 09:21
APTT Cancelled 05/07/24 15:50
Total Bilirubin 0.7 mg/dl (0.2-1.3) 05/07/24 09:21
AST 36 U/L (17-59) 05/07/24 09:21
ALT 18 U/L (0-50) 05/07/24 09:21
Alkaline Phosphatase 82 U/L (38-126) 05/07/24 09:21
Troponin I 0.968 ng/ml H* 05/07/24 09:21
Impression/Plan
-
IMPRESSION:The patient is 89 year old male who has a PMH of CAD s/p Multiple Stent, moderate to severe aortic stenosis, HTN, HL, and CKD, anxiety, multiple myeloma,GERD and gastritis with recurrent H. pylori infection re-occurring about every 2
years,BPH presented to ER with severe chest pain, nausea and vomiting. His EKG showed ST changes and his troponin level was found 0.96 concerning for WV. The patient had cardiac catherization and it was not showed a severe obstruction/stenosis
requiring PCI. The patient was admitted to be observed for his chest pain. Cardiology, Nephrology and GI was consulted for assessment.
PLAN:
#Chest pain with EKG changes with a PMH of extensive CAD with stents
-patient had recently cath 04/19 with LAD stenting
-Underwent Left heart catheterization with showing patent coronaries
-Heparin DRIP IV was started per cardiology
-Subendocardial ischemia?
#HFpEF
-Multifactorial from CAD and .
-Continue Lasix BID
# H. Pylori Infection and Chest Pain
- Patient continues with nausea/vomiting
- GI was consulted
-IV PPI was started
-Ondansetron was started
#Essential Hypertension
- Hold home med due hypotension
-BP 109/69
#Multiple Myeloma
-Chronic.
-Associated anemia
-Hgb 9.4 on 05/07
#TI on CKD Stage III
-Possible due hypovolemia in setting of vomiting or dye load from energy systems laboratory director
-Nephrology was consulted
-Monitor BMP
#Hyperlipidemia
-Continue atorvastatin
#Generalized Anxiety Disorder
- Hold clonazepam now and it will be re-assessed
#BPH
- Hold on now finasteride and tamsulosin
#DVT ppx:
-SCDs
Code Status: Full Code
--- NOTE | 2024-05-07 14:48 | CON.GI ---
Addendum entered and electronically signed by Daisha Duran MD 05/07/24 17:16:
I saw and examined the patient.
The HOME HEALTH SPEECH THERAPIST's note was reviewed and I agree with the note.
Comment: This is a 89-year-old Fijian-speaking male who currently has his daughter who speaks Spanish and also his ex- at the bedside with past medical history significant for multiple myeloma chemo on hold secondary to cardiac issues, moderate
to severe being evaluated for TAVR, hypertension, hyperlipidemia, CKD, CAD s/p RAYNE to ramus 04/04 and proximal LAD 04/18 due to in stent restenosis, CHF who presented today with symptoms of chest pain, epigastric pain and nausea vomiting and was
noted to have ST depression on EKG with elevated troponin went for emergent cardiac catheterization and no stenosis of recently placed stent was noted he did receive Lasix, was noted to have moderate pulmonary hypertension. He also recently was
treated for H. pylori + breath test with his piece presser Dr. Frankel with Prevpac which was started on 04/20/2024. Prior endoscopy and colonoscopy was with Dr. Frankel as below.
Assessment and plan epigastric pain, chest pain, nausea and vomiting most likely related to cardiac etiology given recent OK with low EF also, as described above status post stent placement and repeat cardiac catheterization today though showed that
stent was patent. He may be having symptoms of possible gastritis or functional dyspepsia also he does have chronic pain and is on opiates prior to admission. Continue PPI and will get a CT with oral contrast cannot receive IV contrast since he
has a history of CKD now with TI also. he did have a recent lipase level on 04/18/2024 when he had similar symptoms that was normal, his LFTs are currently normal also. Continue PPI twice daily will add Carafate as needed. Continue bowel regimen
with MiraLAX given chronic opiate use and will also add senna if needed.
Addendum entered and electronically signed by LUZ Barreto 05/07/24 16:34:
add to below:
Dr. Adrian
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
hyperplasia, No H pylori, dysplasia or squamous epithelium present
08/2017 colonoscopy - diverticulosis, internal hemorrhoids, no specimens collected
Original Note:
Consultation
-
Date/Time Consultation Requested: 05/07/24 1415
Date/Time Consultation Performed: 05/07/24 1450
Requesting Provider: Lg Niño MD
Performing Provider: LUZ Gibson, Boston Coombs DO
Reason for Consultation: vomiting/abd pain
Medical History
Chief Complaint / HPI
Chief Complaint: nausea/vomiting
History of Present Illness:
Pt is a 89yo Fijian speaking with hx multiple myeloma follows at [facility] [facility](per family chemo on hold with current cardiac issues) PUD with recent H pylori, moderate to severe with current eval for TAVR, HTN, hyperlipidemia, anemia, CKD, narcotic
use and CAD with multiple stents including RAYNE to ramus 04/04 and proximal LAD 04/18 due to in stent restenosis. He presents today with chest pain and nausea and vomiting with ST changes and elevated troponin. he went for urgent cath with elevated
filling pressures and moderate pulm HTN with moderate with no need for intervention. After cath pt noted with abdominal pain and asked to evaluate.
In review with to assist with language issues and provide more information. Pt with long hx chest pain and now epigastric pain with nausea and vomiting. He was noted with + Hpylori breath test with Dr. Adrian his primary GI MD. He
started treatment around 04/20 with Prevpac but per as note taking correctly as skipping PM dose with abdominal pain and vomiting and still taking prior to admission. He states pain in constant and difficulty to say what makes pain worse. He
has noted some increased Oxycodone use for pain then constipation requiring recent mag citrate. He has had no wt loss though appetite was down. No diarrhea or rectal bleeding. Last EGD about 1 year ago and colonoscopy 3-4 years ago with
Nguyễn.
Past Medical History
Past Medical History: CAD (with multiple stents ), Cancer (multiple myeloma), GERD, HTN, Hypercholesterolemia, Renal Failure (CKD), Valvular Disease (aortic stenosis) and Other (gastritis, H pylori, enlarged prostate )
Past Surgical History: Cardiac (stente of ramus intermdius 04/04/24 )
Social History
Tobacco: Former Smoker
Alcohol: None
Drug: None
Living: With Family ( )
Employment: Retired
Family History
Family History: Other (no family hx colon Ca or polyps )
Allergies / Home Medications
Allergy/AdvReac Type Severity Reaction Status Date / Time
Penicillins Allergy Unknown Verified 04/10/24 13:52
�Medication �Instructions �Recorded
amlodipine 5 mg tablet 5 mg PO HS Blood Clot Prevention/Tx 01/15/19
finasteride 5 mg tablet 5 mg PO DAILY Urinary Issue 01/15/19
nitroglycerin 0.4 mg sublingual 0.4 mg sublingual [id number] PRN 01/15/19
tablet chest pain
tamsulosin 0.4 mg capsule 0.4 mg PO DAILY Urinary Issue 01/15/19
alprazolam 0.25 mg tablet 0.25 mg PO TIDPRN PRN anxiety 04/04/24
clonazepam 0.5 mg tablet 0.5 mg PO HS Mental Health/Anxiety 04/04/24
famotidine 40 mg tablet 40 mg PO DAILY Gastrointestinal 04/04/24
Issue
metoprolol succinate 50 mg 75 mg PO DAILY Heart Failure 04/04/24
tablet,extended release 24 hr
oxycodone 5 mg tablet 5 mg PO Q8HPRN PRN moderate to 04/04/24
severe pain
aspirin 81 mg chewable tablet 81 mg PO DAILY #30 tabs 04/07/24
atorvastatin 40 mg tablet 40 mg PO QPM #30 tabs 04/07/24
sodium bicarbonate 650 mg tablet 650 mg PO DAILY #20 tabs 04/07/24
sucralfate 100 mg/mL oral 10 ml PO ACHS 7 days #280 mL 04/10/24
suspension (Carafate)
acetaminophen 325 mg tablet 650 mg PO Q4HPRN PRN mild pain 04/18/24
(Tylenol)
clopidogrel 75 mg tablet 75 mg PO DAILY #90 tabs 04/19/24
docusate sodium 100 mg capsule 100 mg PO BID constipation 04/19/24
pantoprazole 40 mg tablet,delayed 40 mg PO Q12H Gastrointestinal 04/19/24
release Issue
furosemide 40 mg tablet 40 mg PO BID AT 0800,1600 #60 tabs 04/21/24
isosorbide mononitrate 30 mg 30 mg PO DAILY Heart 04/21/24
tablet,extended release 24 hr Disease/Condition #30 tabs
Review of Systems
-
History Source: Patient and Family
Constitutional: Reports Weight Loss and Fatigue
EENT: Reports No Symptoms
Respiratory: Reports Trouble Breathing (at times )
Cardiac: Reports Chest Pain
Abdomen/GI: Reports Abdominal Pain, Nausea, Vomiting and Constipated
: Reports Frequency
Musculoskeletal: Reports No Symptoms
Skin: Reports No Symptoms
Neurological: Reports Weakness
Endocrine: Reports No Symptoms
Vital Signs
Temp Pulse Resp BP Pulse Ox
97.6 F 73 12 109/69 97
05/07/24 12:04 05/07/24 13:45 05/07/24 13:45 05/07/24 13:30 05/07/24 13:45
Physical Exam
Exam
General: Other (some shortness of breath at rest )
HEENT: Normocephalic and Anicteric
Respiratory: Clear
Cardiac: Regular Rhythm
GI: Soft, Non Distended and Tender (epigastric pain )
Musculoskeletal: No Clubbing and No Cyanosis
Skin: Warm and Dry
Neuro: Awake, Alert and AO x 3 (cymro speaking )
Psych: Calm
Results
WBC 9.4 10^3/uL (4.8-10.8) 05/07/24 09:21
Hgb 10.5 g/dL (13.0-18.0) L 05/07/24 09:21
Hct 30.7 % (39.0-52.0) L 05/07/24 09:21
MCV 93.3 fL (80.0-94.0) 05/07/24 09:21
Plt Count 168 10^3/uL (130-400) 05/07/24 09:21
PT 14.1 Sec (11.4-14.6) 05/07/24 09:21
INR 1.11 05/07/24 09:21
APTT Cancelled 05/07/24 15:50
Sodium 141 mmol/L (135-145) 05/07/24 09:21
Potassium 4.1 mmol/L (3.5-5.1) 05/07/24 09:21
Chloride 101 mmol/L (98-107) 05/07/24 09:21
Carbon Dioxide 21 mmol/L (22-30) L 05/07/24 09:21
BUN 50 mg/dl (9-20) H 05/07/24 09:21
Creatinine 2.5 mg/dL (0.7-1.3) H 05/07/24 09:21
Calcium 8.6 mg/dl (8.4-10.2) 05/07/24 09:21
Total Bilirubin 0.7 mg/dl (0.2-1.3) 05/07/24 09:21
AST 36 U/L (17-59) 05/07/24 09:21
ALT 18 U/L (0-50) 05/07/24 09:21
Alkaline Phosphatase 82 U/L (38-126) 05/07/24 09:21
Diagnostic Image Results:
04/04 US abdomen
Normal appearance of the gallbladder with no evidence for biliary ductal dilation.
Small simple cyst within the right lower liver.
Multiple bilateral renal cysts. 10 mm calculus in the lower pole of the left kidney.
04/16/23 CT Abd/pel Without Iv Or Oral
1. Nephrolithiasis, without evidence of hydronephrosis. No significant perinephric stranding. Bilateral renal cysts.
2. No evidence of intestinal obstruction, bowel inflammatory process, nephrolithiasis, hydronephrosis, cholecystitis, or abscess formation.
3. Degenerative changes within the lumbar spine, most pronounced at L4-5.
Prior GI Procedures:
EGD: 01/2023 Dr. Adrian normal duodenum, esophagus stomach
Colonoscopy: last 3-[address] Adrian
Assessment / Plan
-
Pt is a 89yo Fijian speaking with hx multiple myeloma follows at [facility](per family chemo on hold with current cardiac issues) PUD with recent H pylori, moderate to severe with current eval for TAVR, HTN, hyperlipidemia, anemia, CKD, narcotic
use and CAD with multiple stents including RAYNE to ramus 04/04 and proximal LAD 04/18 due to in stent restenosis. He presents today with chest pain and nausea and vomiting with ST changes and elevated troponin. he went for urgent cath with elevated
filling pressures and moderate pulm HTN with moderate with no need for intervention. Pt with ongoing chest and abdominal pain asked to eval. Pt with current H pylori treatment but may have been skipping doses. Pt also recent constipation with
Oxycodone use for abdominal pain.
-chest pain with with st changes and increased troponin on admission s/p cath
-ongoing epigastric pain with nausea and vomiting
-cath with elevated filling pressure, pulm HTN
- with current TAVR work up
-CAD with recent stent 04/04 and 04/19
-hx PUD/Hpylori with current treatment
-constipation ? narcotic related
-anemia with drop in hbg after admission
--multiple myeloma -current chemo on hold with cardiac issues
other medical problems:
-HTN
-Hyperlipidemia
-CKD
PLAN:
Etiology of chest/epigastric pain multifactorial related with current cardiac issues with recent stenting, H pylori related currently completing therapy but admits to some non compliance with regiment vs other-- pt current with multiple myeloma
treatment on hold
s/p cath as noted
unclear where pt is with H pylori therapy -- started 04/20 but did not comply with regiment and still completing would hold further treatment now follow up with Dr. Adrian for repeat testing check
will review with MD for any further testing for abdominal pain -- US completed 04/03 stable -- will proceed CT but some limitation with CKD and ability for IV contrast to exclude any other pathology with vomiting
discussed with nursing for Zofran prior which was just given
cont PPI for now
ok for full liquid diet
add miralax daily with recent constipation
pt was due follow f/u with Dr. Torres 05/12
updated family at bedside
will follow
-
-
Thank you for consultation and allowing me to participate in the patient's care. Please call the train electronic technician GI physician during the after hours with any questions or concerns.
--- NOTE | 2024-05-07 15:00 | W.PN.UPDATE ---
Update Note
Progress Note Update
Read, reviewed, and agree. See same day progress note for additional details. Time spent coordinating care, DC planning, review of DC plan of care with resident, transition of care, review of records in EMR, med rec, consults, notes, d/w
consultants, nursing, family, and CM mins
Patient is 89-year-old male with past medical history of coronary disease status post proximal LAD stenting on 04/19, chronic diastolic congestive heart failure, H. pylori infection on prevpac from 04/20, multiple myeloma, CKD stage IIIb, mod-sev ,
essential HTN, HLD came to ER for having acute onset sternal chest pain, nausea and vomiting episode. Patient in ER had EKG showing new significant ST seg depression in septo-lateral leads and was taken to emergent LHC , which did not show any new
obstruction/thrombus in coronaries. recently placed stent was patent. Patient was moved to ICU For further treatment after this . During my evaluation patient sedated and most of information gathered from patient spouse at bedside. Per spouse
patient was having initially diffuse abdominal pain below diaphragm level with poor appetite and episodic nausea although today patient and was having more sternal pain with some radiation to back as well. No associated shortness of
breath/palpitation. Patient had episode of dizziness without syncope yesterday. No productive cough/afebrile no change in bowel habits.
HEENT: No pallor, cyanosis, or jaundice. Throat clear.
NECK: Supple. No JVD.
RESPIRATORY: Lungs clear to auscultation.
CVS: S1, S2 normal. RRR. No murmur, rub or gallop.
ABDOMEN: Soft, non-tender. No distension. BS+/normal.
EXTREMITIES: No peripheral cyanosis or edema.
LOSS PREVENTION GUARD: AOx3. No focal deficits.
1. Rule out ACS
NSTEMI status post LAD stenting on 04/19
-Comes in for chest pain/nausea/vomiting
-Admission troponin of 0.968, f/u trop check in evening
-EKG and admission reviewed and patient had significant ST segment depression on
-Underwent emergent left heart catheterization with showing patent coronaries
-Currently maintained on IV heparin drip continue per cardio recommendation
-is symptoms/EKG findings related to Subendocardial ischemia?
2. Nausea/vomiting
on H plylori treatment
-Patient on Prevpac from 04/20 for H. pylori treatment
-Patient was tested positive based on hydrogen breath test on outpatient basis
-Abdominal examination benign low concern of ileus/obstruction
-Treat symptomatically with antiemetics
-Maintain on liquid diet for today and would advance as tolerated
-GI evaluation requested as well
3. TI on CKDIIIB
Urinary retention
-Creatinine 2.5
-Patient had increased risk of EDY and will need to monitor renal function closely
-Cannot provide empirically IV fluid with history of diastolic heart failure
-Patient has been started on IV Lasix by cardiology, pulm capillary wedge pressure of 31 on heart cath
-Patient having some urinary retention and postvoid residual of 450 mL per nurse, straight cath ordered.
-nephro asked to follow.
4, Acute hypoxic resp insufficiency
-Chest xr reviewed and possible pulm edema, official read pending
-getting IV lasix, f/u weight cr
5. Mod-sev
-ongoing workup for TAVR
Multiple myeloma
Essential HTN
HLD
FÉLIX
BPH
Full code
Heparin drip
Total time spent : 80 mins
--- NOTE | 2024-05-07 15:32 | W.CON.NEPH ---
Consultation
-
Date/Time Consultation Requested: 05/07/2024 3:20 PM
Date/Time Consultation Performed: 05/07/2024 3:30 PM
Requesting Provider: Dr. Niño
Performing Provider: Dr. Chatterjee
Reason for Consultation: TI
Medical History
-
Chief Complaint: TI
History of Present Illness:
The patient is an 89-year-old male with a past medical history of chronic kidney disease stage IIIb who maintains a baseline creatinine of approximately 1.8 noted on 04/18/2024. I note previously that his creatinine baseline in early March 2024 was
1.3. He has a history of hypertension maintained on amlodipine metoprolol and Imdur. He is maintained chronically on sodium bicarbonate for metabolic acidosis. He recently underwent stent placement to ramus on 04/04/2024 to proximal LAD secondary
to in-stent restenosis on 04/19/2024. He does have a history of moderate to severe aortic stenosis as well. He presented to the hospital earlier today with significant chest pain with associated nausea and vomiting. There was significant ST
depressions in the anterior lateral leads on EKG. He was taken for urgent cardiac catheterization. Pulmonary capillary wedge pressure was notably elevated at 31. No culprit lesion was identified on catheter therefore no PCI was performed he was
given 40 mg of IV Lasix in the cardiac [facility]. His creatinine is now up to 2.5 and nephrology was asked to see the patient. The patient's creatinine level was 1.9 following discharge from hospital on 04/21/2024.
Past Medical History
Chronic kidney disease stage IIIb (1.5)
Coronary artery disease with multiple stenting history most recent March 2024 in April 2024
Hypertension
Metabolic acidosis
Hyperlipidemia
Multiple myeloma
BPH
Anxiety
Severe aortic stenosis
Social History
Tobacco: Former Smoker
Alcohol: None
Family History
no ckd
Allergies / Home Medications
Allergy/AdvReac Type Severity Reaction Status Date / Time
Penicillins Allergy Unknown Verified 04/10/24 13:52
�Medication �Instructions �Recorded �Confirmed �Type
amlodipine 5 mg tablet 5 mg PO HS Blood Clot Prevention/Tx 01/15/19 04/18/24 History
finasteride 5 mg tablet 5 mg PO DAILY Urinary Issue 01/15/19 04/18/24 History
nitroglycerin 0.4 mg sublingual 0.4 mg sublingual [id number] PRN 01/15/19 04/18/24 History
tablet chest pain
tamsulosin 0.4 mg capsule 0.4 mg PO DAILY Urinary Issue 01/15/19 04/18/24 History
alprazolam 0.25 mg tablet 0.25 mg PO TIDPRN PRN anxiety 04/04/24 04/18/24 History
clonazepam 0.5 mg tablet 0.5 mg PO HS Mental Health/Anxiety 04/04/24 04/18/24 History
famotidine 40 mg tablet 40 mg PO DAILY Gastrointestinal 04/04/24 04/18/24 History
Issue
metoprolol succinate 50 mg 75 mg PO DAILY Heart Failure 04/04/24 04/18/24 History
tablet,extended release 24 hr
oxycodone 5 mg tablet 5 mg PO Q8HPRN PRN moderate to 04/04/24 04/18/24 History
severe pain
aspirin 81 mg chewable tablet 81 mg PO DAILY #30 tabs 04/07/24 04/18/24 Rx
atorvastatin 40 mg tablet 40 mg PO QPM #30 tabs 04/07/24 04/18/24 Rx
sodium bicarbonate 650 mg tablet 650 mg PO DAILY #20 tabs 04/07/24 04/18/24 Rx
sucralfate 100 mg/mL oral 10 ml PO ACHS 7 days #280 mL 04/10/24 04/18/24 Rx
suspension (Carafate)
acetaminophen 325 mg tablet 650 mg PO Q4HPRN PRN mild pain 04/18/24 04/18/24 History
(Tylenol)
clopidogrel 75 mg tablet 75 mg PO DAILY #90 tabs 04/19/24 Rx
docusate sodium 100 mg capsule 100 mg PO BID constipation 04/19/24 04/18/24 History
pantoprazole 40 mg tablet,delayed 40 mg PO Q12H Gastrointestinal 04/19/24 04/18/24 History
release Issue
furosemide 40 mg tablet 40 mg PO BID AT 0800,1600 #60 tabs 04/21/24 Rx
isosorbide mononitrate 30 mg 30 mg PO DAILY Heart 04/21/24 04/18/24 Rx
tablet,extended release 24 hr Disease/Condition #30 tabs
Review of Systems
-
History Source: Patient
All other systems: Negative unless noted
Respiratory: Trouble Breathing
Cardiac: Chest Pain
: Difficulty Voiding
Physical Exam
Vital Signs
Vital Signs
Temp Pulse Resp BP Pulse Ox
97.6 F 73 16 132/76 96
05/07/24 12:04 05/07/24 15:15 05/07/24 15:15 05/07/24 15:00 05/07/24 15:15
Lab Results
05/07/24 09:21
05/07/24 09:21
WBC 9.4 10^3/uL (4.8-10.8) 05/07/24 09:21
RBC 3.29 10^6/uL (4.70-6.10) L 05/07/24 09:21
Hgb 10.5 g/dL (13.0-18.0) L 05/07/24 09:21
Hct 30.7 % (39.0-52.0) L 05/07/24 09:21
Plt Count 168 10^3/uL (130-400) 05/07/24 09:21
Sodium 141 mmol/L (135-145) 05/07/24 09:21
Potassium 4.1 mmol/L (3.5-5.1) 05/07/24 09:21
Chloride 101 mmol/L (98-107) 05/07/24 09:21
Carbon Dioxide 21 mmol/L (22-30) L 05/07/24 09:21
BUN 50 mg/dl (9-20) H 05/07/24 09:21
Creatinine 2.5 mg/dL (0.7-1.3) H 05/07/24 09:21
eGFR 24.26 05/07/24 09:21
Glucose 128 mg/dl (70-99) H 05/07/24 09:21
Calcium 8.6 mg/dl (8.4-10.2) 05/07/24 09:21
Phosphorus 3.8 mg/dl (2.5-4.5) 05/07/24 09:21
Albumin 4.6 g/dl (3.5-5.0) 05/07/24 09:21
Physical Exam
General: AOx3, Nontoxic , NAD
HEENT: PERRL, EOMI, Anicteric, Conjunctivae Clear, Ear/Nose Intact, Hearing Normal, Oropharynx Clear/Moist, Dentition Intact, Facial Symmetry, Neck Supple, Neck: Trachea Midline, No JVD and No Thyromegaly, no Bruits
Respiratory: coarse to auscultation bilaterally with normal lung excursion
Cardiac: S1/S2 and Regular Rate/Rhythm tachy with 4/6 RANDA best heard at RSB
Breast: Deferred by me
Abdomen: Soft, Nontender, Nondistended, Normal Bowel Sounds and No Hepatosplenomegaly
Rectal: Deferred by Provider
Genito-urinary: No Costovertebral Tenderness
Extremities: No Clubbing, No Cyanosis and No Edema
Skin: No Rash or open lesions
Neuro: Nonfocal/Grossly Intact, CN II-XII (Intact) and Strength (Musculoskeletal exam 5 out of 5 both upper and lower extremities)
Hematologic/Lymphatic: No Cervical Lymphadenopathy, No Submandibular Lymphadenopathy and No Supraclavicular Lymphadenopathy
Psych: Mood/afflect pleasant, Insight/judgement good and Appropriate
Vascular: plus 1 pedal and radial pulses
Data Reviewed
-
Radiology: Image Personally Visualized and interpreted (Chest x-ray personally reviewed interstitial edema pattern noted by my review)
Labs: Labs Reviewed by me (BMP CBC)
Old Records: Reviewed (Reviewed previous creatinine level of 1.9 as of 04/21/2024)
Assessment/Plan
-
Impression:
Chest pain/NSTEMI - acute ST changes on EKG.
CAD (recent PCI RAYNE to ramus intermedius 04/04/24 and RAYNE proximal LAD ISR 04/19/24)
HFpEF - acute on chronic.
Moderate/Severe
HTN
CKD - 3b.(creatinine 2.4 on 05/03)
Renal cystic disease
Multiple Myeloma - Chronic with associated anemia
Chronic metabolic acidosis
Plan:
TI:
-Patient will be at increased risk for contrast nephropathy given recent cardiac catheterization today as well as history of congestive heart failure and advanced age and associated with chronic kidney disease stage IIIb
-Check urinalysis, recent u/s of kidneys noted renal cystic lesions
-Accurate I's and O, check random PVR with bladder scan, low threshold for Tabor catheter insertion as first bladder scan noted 480 cc after voiding 10 cc
-Diuretics have been initiated by cardiology in setting of elevated pulmonary capillary wedge pressure of 31 and hypervolemia (40mg IV BID)
-Maintain sodium bicarbonate in setting of chronic metabolic acidosis
-Currently hemodynamically stable
[2024-05-07] MEDS: LASIX 40 MG IV (15:51)
[2024-05-07] MEDS: ZOFRAN 4 MG IV (16:12)
--- NOTE | 2024-05-07 16:25 | PTCARENOTE ---
Clarified with Dr. Lynn regarding Plavix.
--- NOTE | 2024-05-07 16:26 | PTCARENOTE ---
S/P ambulation to bedside commode, then found him walking with his to the bathroom. I had explained again to the the importance of allowing the nurses to ambulate due to blood thinners, and recent procedure, and oxygen requirements. She
verbalized her understanding. Right radial site REMI. Slightly ecchymotic. Right groin site with dressing unchanged.
--- NOTE | 2024-05-07 16:37 | PTCARENOTE ---
Attempted to call report. Delayed due to emergency elsewhere in IVU.
--- NOTE | 2024-05-07 16:52 | TRANSFER ---
Meron called to [facility] for room 2253. Pt to be transported via bed with RN, tele, Oxygen
[2024-05-07] MEDS: ASPIR LOW (ENTERIC COATED) 81 MG PO (17:22)
[2024-05-07] MEDS: LIPITOR 40 MG PO (17:22)
--- NOTE | 2024-05-07 17:55 | PTCARENOTE ---
Spoke with pt's grandson who is a hospitalist in [place], Dave Zaapta cell [phone], work [phone]. He informed me that his myeloma is worsening and has been declining. He is concerned his pain could possibly be pancreatic related. He was
provided an update of the events of his grandfather's hospitalization and current presentation. He stated he would explain the plan to his grandmother. [facility] is aware of this conversation and that Dr. Niño was notified of this via TT. Was planning on
administering miralax with oral contrast to limit fluid intake.
[2024-05-07] MEDS: OMNIPAQUE 50 ML PO (18:04)
--- NOTE | 2024-05-07 18:21 | PTCARENOTE ---
Pt c/o nausea, unable to evette oral contrast for CT scan, Dr Lg Niño aware. Would like CT scan done without contrast.
[2024-05-07] MEDS: KLONOPIN 0.5 MG PO (19:46)
--- NOTE | 2024-05-07 20:24 | PTCARENOTE ---
Rec'd Pt 1750, speaks Guinean, at bedside speaks some Irish. Pt is alert and oriented c/o nausea. IV ntg and IV heparin infusing via R AC IV.
[2024-05-07 21:39] LABS: APTT 54.7 Sec (23.4-35.0)
[2024-05-07] MEDS: TOPROL XL 25 MG PO (22:24)
[2024-05-07] MEDS: PROTONIX IV 40 MG IV (22:25)
[2024-05-07] MEDS: NSS (PRESERVATIVE FREE) 10 ML IV (22:25)
[2024-05-08] VITALS (9 sets, daily range): BP systolic 99–130; BP diastolic 63–93
--- NOTE | 2024-05-08 00:57 | PTCARENOTE ---
Pt sent to CT- upon return he verbalized a relief from pain. pt belching. hyper active bowel sounds. hep and nitro gtt still running as documented. Granddaughter left her number for contact and translation purposes on the board.
--- NOTE | 2024-05-08 01:27 | PTCARENOTE ---
bed alarm in place for impulsivity. PVR 160. voiding in the urinal 200-300mls @ a time.
[2024-05-08] MEDS: TYLENOL 650 MG PO (02:40)
[2024-05-08 05:17] LABS: Hematocrit 24.2 % (39.0-52.0); Hemoglobin 8.4 g/dL (13.0-18.0); Mean Corp Hgb Conc. 34.7 g/dL (33.0-37.0); Mean Corpuscular Hgb 31.8 pg (27.0-31.0); Mean Corpuscular Volume 91.7 fL (80.0-94.0); Mean Platelet Volume 10.8 fL (7.4-10.4); Platelet Count 144 10^3/uL (130-400); Red Blood Cell Count 2.64 10^6/uL (4.70-6.10); Red Cell Dist. Width 12.7 % (11.5-14.5); White Blood Cell Count 8.5 10^3/uL (4.8-10.8)
[2024-05-08 05:29] LABS: APTT 100.4 Sec (23.4-35.0)
[2024-05-08 05:37] LABS: Blood Urea Nitrogen 47 mg/dl (9-20); Carbon Dioxide 23 mmol/L (22-30); Chloride 103 mmol/L (98-107); Estimated Creatinine Clearance 22 ml/min; Glucose 103 mg/dl (70-99); HDL Cholesterol 42 mg/dl; LDL Cholesterol, Calculated 83 mg/dl; Potassium 4.1 mmol/L (3.5-5.1); Sodium 138 mmol/L (135-145); Total Cholesterol 140 mg/dl (50-199); Triglyceride 78 mg/dl (10-149); Very Low Density Lipoprotein 15 mg/dl (0-30); eGFR 28.28
[2024-05-08] MEDS: XANAX 0.25 MG PO ×2 (05:45→22:59)
[2024-05-08] MEDS: ZOFRAN 4 MG IV ×2 (05:45→13:44)
--- NOTE | 2024-05-08 06:01 | PTCARENOTE ---
Pt with intermittent epigastric/cp overnight. relieved with Tylenol and belching. Pt this am stated that he felt better this morning and wanted to eat something. orange Jello provided- 30 mins following Jello pt again having pain and belching and
spitting up orange phlegm. Xanax and Zofran proved per OCT.
--- NOTE | 2024-05-08 08:31 | W.PN.GI.CBS2 ---
Today's Communication / Plan
-
added carafate
miralax increased to bid
Assessment / Plan
-
Pt is a 89yo [place] speaking with hx multiple myeloma follows at [facility](per family chemo on hold with current cardiac issues) PUD with recent H pylori, moderate to severe with current eval for TAVR, HTN, hyperlipidemia, anemia, CKD, narcotic
use and CAD with multiple stents including RAYNE to ramus 04/04 and proximal LAD 04/18 due to in stent restenosis. He presents today with chest pain and nausea and vomiting with ST changes and elevated troponin. he went for urgent cath with elevated
filling pressures and moderate pulm HTN with moderate with no need for intervention. Pt with ongoing chest and abdominal pain asked to eval. Pt with current H pylori treatment but may have been skipping doses. Pt also recent constipation with
Oxycodone use for abdominal pain.
-chest pain with with st changes and increased troponin on admission s/p cath
-ongoing epigastric pain with nausea and vomiting
-cath with elevated filling pressure, pulm HTN
- with current TAVR work up
-CAD with recent stent 04/04 and 04/19
-hx PUD/Hpylori with current treatment
-constipation ? narcotic related
-anemia with drop in hbg after admission
--multiple myeloma -current chemo on hold with cardiac issues
other medical problems:
-HTN
-Hyperlipidemia
-CKD
PLAN:
Etiology of chest/epigastric pain multifactorial related with current cardiac issues with recent stenting, H pylori related currently completing therapy but admits to some non compliance with regiment vs other-- pt current with multiple myeloma
treatment on hold
s/p cath as noted
unclear where pt is with H pylori therapy -- started 04/20 but did not comply with regiment and still completing would hold further treatment now follow up with Dr. Adrian for repeat testing check
cont PPI for now
added carafate
continue Zofran PRN and bland diet
CT abdomen and pelvis with no obvious etiology for abdominal pain. He does have constipation and also has new needs colonoscopy recall in 5 years basilar consolidation
Okay to advance diet to cardiac diet
added miralax bid for constipation
pt due for f/u with Dr. Torres 05/12
No further GI inpatient workup anticipated for now will sign off and will be available as needed
Subjective
Subjective
Date of Service: May 08, 2024
Patient appears comfortable. No reported vomiting last night. No rectal bleeding or melena reported.
Objective
Data Reviewed
Laboratory Data:
Laboratory Results
05/08/24 04:45
05/08/24 04:45
Laboratory Results
PT 14.1 Sec (11.4-14.6) 05/07/24 09:21
INR 1.11 05/07/24 09:21
APTT 100.4 Sec (23.4-35.0) H 05/08/24 04:45
Phosphorus 3.8 mg/dl (2.5-4.5) 05/07/24 09:21
Magnesium 2.6 mg/dl (1.6-2.3) H 05/07/24 09:21
Total Bilirubin 0.7 mg/dl (0.2-1.3) 05/07/24 09:21
AST 36 U/L (17-59) 05/07/24 09:21
ALT 18 U/L (0-50) 05/07/24 09:21
Alkaline Phosphatase 82 U/L (38-126) 05/07/24 09:21
Vital Signs and I&O:
Vital Signs
Temp Pulse Resp BP Pulse Ox
97.7 F 76 18 121/81 94
05/08/24 02:30 05/08/24 04:00 05/08/24 02:30 05/08/24 02:44 05/08/24 02:30
I&O
05/07/24 05/08/24 05/09/24
06:59 06:59 06:59
Intake Total 59.0 / 59.0
Output Total 730 / 730
Balance -671.0 / -671.0
05/07/24 CT abdomen and pelvis
IMPRESSION: No acute pathology of the abdomen or pelvis identified.
too small to characterize hypodense hepatic lesion likely a small cyst or hemangioma. Stable
Simple bilateral renal cysts. Stable
Nonobstructing left renal stone. Stable
Small bilateral pleural effusions. New
Moderate bibasilar consolidation. New
Moderate fecal material in the colon. Stable
Mild diverticulosis. Stable
Physical Exam
Physical Exam
Cardiology: Normal Sinus Rhythm
Pulmonary: Other (Few crackles at the bases)
GI: Soft, Non Distended, Tender (Mild epigastric tenderness) and Normal Bowel Sounds
[2024-05-08] MEDS: MIRALAX 17 GRAMS PO ×2 (08:44→20:13)
[2024-05-08] MEDS: PLAVIX 75 MG PO (08:45)
[2024-05-08] MEDS: TOPROL XL 25 MG PO ×2 (08:45→20:01)
[2024-05-08] MEDS: PROSCAR 5 MG PO (08:45)
[2024-05-08] MEDS: FLUSH (NSS) 2 FLUSH IV ×3 (08:45→17:25)
[2024-05-08] MEDS: ASPIR LOW (ENTERIC COATED) 81 MG PO (08:45)
[2024-05-08] MEDS: PROTONIX IV 40 MG IV ×2 (08:46→20:02)
[2024-05-08] MEDS: NSS (PRESERVATIVE FREE) 10 ML IV ×2 (08:46→20:02)
[2024-05-08] MEDS: LASIX 40 MG IV ×2 (08:46→17:25)
[2024-05-08 08:50] LABS: Lipase 112 U/L (23-300)
[2024-05-08] MEDS: MAALOX 30 ML PO ×3 (10:08→22:59)
--- NOTE | 2024-05-08 10:29 | W.PN.NEPH.PH ---
Today's Communication / Plan
-
Observe
Follow-up urinalysis and urine protein creatinine
Assessment/Plan
-
Impression:
Chest pain/NSTEMI - acute ST changes on EKG.
CAD (recent PCI RAYNE to ramus intermedius 04/04/24 and RAYNE proximal LAD ISR 04/19/24)
HFpEF - acute on chronic.
Moderate/Severe
HTN
CKD - 3b.(creatinine 2.4 on 05/03)
Renal cystic disease
Multiple Myeloma - Chronic with associated anemia
Chronic metabolic acidosis
Plan:
TI:
-Patient will be at increased risk for contrast nephropathy given recent cardiac catheterization today as well as history of congestive heart failure and advanced age and associated with chronic kidney disease stage IIIb
-Troponin up to 2.65
-Creatinine down to 2.2: within baseline and nonoliguric
-Checked urinalysis (not done), recent u/s of kidneys noted renal cystic lesions
-Accurate I's and O, check random PVR with bladder scan, low threshold for Tabor catheter insertion as first bladder scan noted 480 cc after voiding 10 cc
-Diuretics have been initiated by cardiology in setting of elevated pulmonary capillary wedge pressure of 31 and hypervolemia (40mg IV BID)
-Maintain sodium bicarbonate in setting of chronic metabolic acidosis
-Currently hemodynamically stable
-
-
Date of Service: May 08, 2024
CC / HPI / ROS
-
Chief Complaint:
Chronic kidney disease
History of Present Illness:
Creatinine stable at 2 point
Hemodynamically stable
Review of Systems:
Nonoliguric with intermittent straight cath
No fevers
Labs
-
Labs:
WBC 8.5 10^3/uL (4.8-10.8) 05/08/24 04:45
RBC 2.64 10^6/uL (4.70-6.10) L 05/08/24 04:45
Hgb 8.4 g/dL (13.0-18.0) L 05/08/24 04:45
Hct 24.2 % (39.0-52.0) L 05/08/24 04:45
Plt Count 144 10^3/uL (130-400) 05/08/24 04:45
Sodium 138 mmol/L (135-145) 05/08/24 04:45
Potassium 4.1 mmol/L (3.5-5.1) 05/08/24 04:45
Chloride 103 mmol/L (98-107) 05/08/24 04:45
Carbon Dioxide 23 mmol/L (22-30) 05/08/24 04:45
BUN 47 mg/dl (9-20) H 05/08/24 04:45
Creatinine 2.2 mg/dL (0.7-1.3) H 05/08/24 04:45
eGFR 28.28 05/08/24 04:45
Glucose 103 mg/dl (70-99) H 05/08/24 04:45
Calcium 8.0 mg/dl (8.4-10.2) L 05/08/24 04:45
Phosphorus 3.8 mg/dl (2.5-4.5) 05/07/24 09:21
Albumin 4.6 g/dl (3.5-5.0) 05/07/24 09:21
Physical Exam
-
Vital Signs:
Vital Signs
Temp Pulse Resp BP Pulse Ox
98.3 F 81 20 110/70 94
05/08/24 08:32 05/08/24 10:13 05/08/24 08:32 05/08/24 10:13 05/08/24 08:34
Cardiovascular:: Regular rate and rhythm
Respiratory:: Bilateral: CTA
Lung Excursion:: Normal
Abdomen:: Nontender
Bowel Sounds:: Normal
Extremity Edema:: None: Bilateral:
Tabor Catheter: No
--- NOTE | 2024-05-08 10:37 | W.PN.CD ---
Addendum entered and electronically signed by Dee Montgomery MD 05/08/24 13:27:
Patient seen and evaluated personally. I agree with the note, documentation and plan of care as below.
Briefly, 89-year-old gentleman with severe coronary disease and drop in LVEF from 50 to 35% who also noted to have moderate to severe aortic stenosis and presented with recurrent chest pain with ST changes. Patient was taken to the lab emergently
and cardiac catheterization showed stable coronary artery disease with patent stent. Patient continued to have chest pain. Patient was IV fluid overloaded and is diuresing well. Patient's aortic stenosis is severe with aortic valve area of 0.8
cm�. To complicate things he also has moderate mitral regurgitation and significant wall motion with maladies with LVEF which is reduced despite revascularization. Our plan is to continue supportive care with pain control and diuresis.
Original Note:
Today's Communication / Plan
-
Check ekg with ongoing SOB and chest pain
CT abd - no acute reason for symptoms
IV diuresis to continue
Impression / Plan
-
Primary computer repair instructor: Brittaney Bailon MD
Chest pain/NSTEMI - acute ST changes on EKG.
- severe pain for 2 days w/o relief after SL NTG.
- [facility] with stable disease , no target for PCI, elevated filling pressures
- on IV nitro and recurrent pain at times. GI saw pt.
CAD - multiple stents.
- recent PCI RAYNE to ramus intermedius 04/04/24 and RAYNE proximal LAD ISR 04/19/24.
- reports compliance with ASA and Plavix.
- [facility] 05/07/24with stable CAD and patent stent.
-on IV nitro
HFrEF - acute on chronic.
- volume overload. On IV lasix, slight decrease in weight
- con't IV lasix ( he is not using urinal so I & O difficult to assess.)
-monitor renal function with CKD
-echo now with reduced EF 35-40Moderate basal to mid anteroseptal, inferoseptal, basal inferolateral, and basal inferior hypokinesis. Normal right ventricular size and function.
-Mild to moderate mitral regurgitation.
- Severe aortic stenosis; peak mean gradients are 64/35 mmHg, calculated LUDY is 0.8 cm2.
Severe -
-now with reduced EF on echo
-IV diuresis for heart failure
-consider valve eval.
HTN - chronic.
-con't meds
CKD - 3b.
- monitor with diuresis
Multiple Myeloma - Chronic with associated anemia.
Subjective:
Pt with SOB and chest discomfort and abdominal discomfort. worse after ambulating to bathroom today.
Physical Exam
Vital Signs/Labs
Vital Signs
Temp Pulse Resp BP Pulse Ox
98.3 F 81 20 110/70 94
05/08/24 08:32 05/08/24 10:13 05/08/24 08:32 05/08/24 10:13 05/08/24 08:34
05/07/24 05/08/24 05/09/24
06:59 06:59 06:59
Actual Weight 76.7 kg
05/08/24 04:45
05/08/24 04:45
PT 14.1 Sec (11.4-14.6) 05/07/24 09:21
INR 1.11 05/07/24 09:21
APTT 100.4 Sec (23.4-35.0) H 05/08/24 04:45
Magnesium 2.6 mg/dl (1.6-2.3) H 05/07/24 09:21
Triglycerides 78 mg/dl (10-149) 05/08/24 04:45
LDL Cholesterol, Calc 83 mg/dl 05/08/24 04:45
VLDL Cholesterol, Calc 15 mg/dl (0-30) 05/08/24 04:45
HDL Cholesterol 42 mg/dl 05/08/24 04:45
LAB Results
05/07/24 05/07/24 05/08/24
09:21 16:45 04:45
Troponin I 0.968 H* 2.020 H* D 2.650 H*
Physical Exam
Constitutional: Other (Pt with SOB )
Cardiovascular: Rhythm & rate is regular and Pedal edema is absent
Respiratory: Other (Increased respirations, decrease bases bilat)
GI: Soft and Non tender
Neuro/Psych: AO x 3
Other: Cath Site (R groin soft , no hematoma)
Data Reviewed
-
Date of Service: May 08, 2024
Echo: Report Reviewed by me (as summerized above)
Labs: Labs Reviewed by me
--- NOTE | 2024-05-08 10:58 | W.PN.HOSP.TC ---
Today's Communication/Plan
-
see note
Assessment / Plan
Assessment / Plan
1. Chest pain
NSTEMI status post LAD stenting on 04/19
-Comes in for chest pain/nausea/vomiting
-Admission troponin of 0.968, f/u trop check in evening
-EKG and admission reviewed and patient had significant ST segment depression on
-Underwent emergent left heart catheterization with showing patent coronaries
-Currently maintained on IV heparin drip continue per cardio recommendation
-is symptoms/EKG findings related to Subendocardial ischemia? pericarditis?
2. Nausea/vomiting
s/p H plylori treatment
-Patient on Prevpac from 04/20 for H. pylori treatment and finished the cousrse
-Patient was tested positive based on hydrogen breath test on outpatient basis
-CT a/p didnot show any acute abnormalities
-Lipase WNL
-symptoms from Gastroparesis? PUD?
-Treat symptomatically with antiemetics
-GI following and help appreciated
3. Acute systolic HF
Acute hypoxi resp insuffiicency
-EF on TTE down to 35-40%, was normal last month
-[facility] this admit did not show any obstructive CAD
-EF decline related to sev ? rapid declined difficult to explain.
-on IV lasix, f/u weight/cr
4. TI on CKDIIIB
Urinary retention
-Patient had increased risk of EDY and will need to monitor renal function closely
-Cannot provide empirically IV fluid with history of diastolic heart failure
-Patient has been started on IV Lasix by cardiology, pulm capillary wedge pressure of 31 on heart cath
-Patient having some urinary retention and postvoid residual of 450 mL per nurse, straight cath ordered.
-nephro following and help appreciated
5. Mod-sev
-ongoing workup for TAVR
-may required expedited evaluation with decreased EF, cardio to decide.
Multiple myeloma
Essential HTN
HLD
FÉLIX
BPH
Full code
Heparin drip
Total time spent : 52 mins
Discussed care with cardio and Nephro
Anticipated Discharge: > 48 hours
Subjective/Interval History
-
Date of Service: May 08, 2024
patient continues to have diffuse chest pain
some nausea, no vomiting overnight
remains on o2 through NC
afebrile in night
Objective Data
-
Labs:
Laboratory Results
05/08/24 05/08/24
04:45 10:45
WBC 8.5
Hgb 8.4 L
Hct 24.2 L
Plt Count 144
APTT 100.4 H Pending
Sodium 138
Potassium 4.1
Chloride 103
Carbon Dioxide 23
BUN 47 H
Creatinine 2.2 H
Glucose 103 H
Calcium 8.0 L
Vital Signs:
Vital Signs
Temp Pulse Resp BP Pulse Ox
98.3 F 81 20 110/70 94
05/08/24 08:32 05/08/24 10:13 05/08/24 08:32 05/08/24 10:13 05/08/24 08:34
I&O
05/07/24 05/08/24 05/09/24
06:59 06:59 06:59
Intake Total 59.0 / 59.0
Output Total 730 / 730
Balance -671.0 / -671.0
Review of Systems
-
Respiratory: Reports No Symptoms
Cardiac: Reports Chest Pain; Denies Diaphoresis or Palpitations
Abdomen/GI: Reports Abdominal Pain and Nausea; Denies Vomiting
Physical Exam
-
General: No Apparent Distress and Comfortable
HEENT: Oxygen (2L NC)
Respiratory: Clear to Auscultation
Cardiac: Regular Rhythm and S1/S2; Negative Murmur or Rub
GI: Soft, Nontender and Nondistended
Musculoskeletal: No Edema
Neuro: Awake, Alert, Oriented, No Motor Deficits and Nonfocal/Grossly Intact
Psych: Calm
[2024-05-08] MEDS: CARAFATE 1 GRAM PO ×2 (12:41→20:01)
[2024-05-08] MEDS: HEPARIN 25000 UNITS/250 ML IV (12:41)
[2024-05-08 13:14] LABS: APTT 96.8 Sec (23.4-35.0)
[2024-05-08] MEDS: KLONOPIN 0.5 MG PO (17:26)
[2024-05-08] MEDS: CARAFATE PO (17:26)
[2024-05-08] MEDS: LIPITOR 40 MG PO (17:26)
[2024-05-08 19:39] LABS: Urine Albumin Trace (Neg - Trace); Urine Bilirubin Negative (Negative); Urine Character Clear (Clear); Urine Color Straw; Urine Glucose Negative (Negative); Urine Ketone Negative (Negative); Urine Leukocyte Negative (Negative); Urine Nitrite Negative (Negative); Urine Occult Blood Negative (Negative); Urine Specific Gravity 1.015 (<1.030); Urine Urobilinogen Negative (Neg - 1+)
[2024-05-08 19:58] LABS: Protein/creatinine Ratio 0.6; Urine Protein 43 mg/dl
[2024-05-08] MEDS: NITROGLYCERIN PREMIX 250 IV (20:10)
--- NOTE | 2024-05-08 20:51 | PTCARENOTE ---
Pt. received at change of shift. Pt. seen and assessed in room with and daughter at bedside. Pt. AOx3, but very restless. Attempting to get out of bed without assistance. Bed alarm on. Heparin at 11.5mL/hr and nitro gtt adjusted to 50mcg/min
for chest pain. RN educating patient on plan of care, pt. nodding in agreement to POC. Call reyes within reach. Continuing to monitor at this time.
[2024-05-09] VITALS (47 sets, daily range): BP systolic 79–141; BP diastolic 47–94; BMI 29.8
[2024-05-09] MEDS: ZOFRAN 4 MG IV ×2 (01:23→11:54)
[2024-05-09] MEDS: MORPHINE SULFATE 1 MG IV (01:39)
--- NOTE | 2024-05-09 03:37 | PTCARENOTE ---
Overnight, pt. frequently getting out of bed to sit at bedside bc of 'chest pain' radiating to the right arm and stomach area. Pain accompanied with belching. Pt. has relief with belching. VS WNL, nitro gtt titrated per protocol. EKG done reading
NSR. RN administered PRN maalox first, along with xanax as pt. was experiencing anxiety r/t the mid chest and stomach pain. Pt. had no relief, continuing to set off bed alarm by getting out of bed without assistance to sit at bedside. Later on, pt.
received zofran for nausea. Pt. still with no pain relief, repositioned to the chair with chair alarm on. Pt. sat in chair for approximately 5 minutes before switching back to an upright position in the bed with this RN to assist him from chair to
bed. Pt. still complaining of chest pain, getting agitated and restless. House provider Angelina Valdovinos notified, one time dose of morphine added. Pt. has not complained of pain since administration. Bed alarm on. Call reyes within reach. Continuing
to monitor the patient at this time.
[2024-05-09 04:35] LABS: Hematocrit 24.8 % (39.0-52.0); Hemoglobin 8.7 g/dL (13.0-18.0); Mean Corp Hgb Conc. 35.1 g/dL (33.0-37.0); Mean Corpuscular Hgb 33.5 pg (27.0-31.0); Mean Corpuscular Volume 95.4 fL (80.0-94.0); Mean Platelet Volume 11.2 fL (7.4-10.4); Platelet Count 126 10^3/uL (130-400); Red Cell Dist. Width 12.9 % (11.5-14.5); White Blood Cell Count 8.9 10^3/uL (4.8-10.8)
[2024-05-09 04:47] LABS: APTT 113.6 Sec (23.4-35.0)
[2024-05-09 05:03] LABS: Blood Urea Nitrogen 44 mg/dl (9-20); Calcium 7.9 mg/dl (8.4-10.2); Carbon Dioxide 23 mmol/L (22-30); Chloride 101 mmol/L (98-107); Estimated Creatinine Clearance 22 ml/min; Glucose 119 mg/dl (70-99); Potassium 4.6 mmol/L (3.5-5.1); Sodium 137 mmol/L (135-145); eGFR 28.28
[2024-05-09] MEDS: TYLENOL 650 MG PO (06:18)
[2024-05-09] MEDS: MAALOX 30 ML PO ×2 (06:18→10:15)
--- NOTE | 2024-05-09 06:30 | PTCARENOTE ---
Pt. repeatedly jumping out of bed due to abd pain. Bed alarm going off. Staff responding to bed alarm. Pt. unable to describe extensiveness of pain, now just pointing to abd and belching. PRN maalox given. Continuing to monitor at this time.
--- NOTE | 2024-05-09 07:30 | PTCARENOTE ---
Patient up siting on side of bed. Complaints of epigastric pain, mildly dyspneic, 4 liters NC. Abrasion on his nose bleeding covered with bandage. Protonix IV given with relief. Walked to the bathroom, gait steady and slow. Assisted to chair,
belching with some relief. Bed and chair alarms audible
[2024-05-09] MEDS: CARAFATE 1 GRAM PO (08:54)
[2024-05-09] MEDS: ASPIR LOW (ENTERIC COATED) 81 MG PO (08:56)
[2024-05-09] MEDS: LASIX 40 MG IV (08:56)
[2024-05-09] MEDS: PROTONIX IV 40 MG IV ×2 (08:56→21:11)
[2024-05-09] MEDS: PLAVIX 75 MG PO (08:56)
[2024-05-09] MEDS: NSS (PRESERVATIVE FREE) 10 ML IV ×2 (08:56→21:11)
[2024-05-09] MEDS: MIRALAX 17 GRAMS PO (08:56)
[2024-05-09] MEDS: PROSCAR 5 MG PO (08:56)
[2024-05-09] MEDS: TOPROL XL 25 MG PO ×2 (08:56→21:11)
--- NOTE | 2024-05-09 09:02 | W.PN.CD ---
Today's Communication / Plan
-
- Pain control with Nitro and Heparin gtt
- Add Ranexa today
- PRN morphine
Impression / Plan
-
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
Chest pain/NSTEMI - acute ST changes on EKG.
- severe pain for 2 days w/o relief after SL NTG.
- [facility] with stable disease , no target for PCI, elevated filling pressures
- on IV nitro and recurrent pain at times. GI saw pt.
-Increasing needs fro Nitro.
-can consider addition ranexa.
CAD - multiple stents.
- recent PCI RAYNE to ramus intermedius 04/04/24 and RAYNE proximal LAD ISR 04/19/24.
- reports compliance with ASA and Plavix.
- [facility] 05/07/24with stable CAD and patent stent.
-on IV nitro
HFrEF - acute on chronic.
- volume overload. On IV lasix, slight decrease in weight
- con't IV lasix ( he is not using urinal so I & O difficult to assess.)
-monitor renal function with CKD
-echo now with reduced EF 35-40% -Moderate basal to mid anteroseptal, inferoseptal, basal inferolateral, and basal inferior hypokinesis. Normal right ventricular size and function.
-Mild to moderate mitral regurgitation.
- Severe aortic stenosis; peak mean gradients are 64/35 mmHg, calculated LUDY is 0.8 cm2.
Severe -
-now with reduced EF on echo
-IV diuresis for heart failure
-consider valve eval.
HTN - chronic.
-con't meds
CKD - 3b.
- monitor with diuresis
Multiple Myeloma - Chronic with associated anemia.
Subjective:
Pt with SOB and chest discomfort and abdominal discomfort.
Physical Exam
Vital Signs/Labs
Vital Signs
Temp Pulse Resp BP Pulse Ox
98.4 F 73 20 141/70 96
05/09/24 07:57 05/09/24 04:12 05/09/24 07:57 05/09/24 04:12 05/09/24 07:57
05/08/24 05/09/24 05/10/24
06:59 06:59 06:59
Actual Weight 76.7 kg 76.2 kg
05/09/24 04:25
05/09/24 04:25
PT 14.1 Sec (11.4-14.6) 05/07/24 09:21
INR 1.11 05/07/24 09:21
APTT 113.6 Sec (23.4-35.0) H 05/09/24 04:25
Magnesium 2.6 mg/dl (1.6-2.3) H 05/07/24 09:21
Triglycerides 78 mg/dl (10-149) 05/08/24 04:45
LDL Cholesterol, Calc 83 mg/dl 05/08/24 04:45
VLDL Cholesterol, Calc 15 mg/dl (0-30) 05/08/24 04:45
HDL Cholesterol 42 mg/dl 05/08/24 04:45
LAB Results
05/07/24 05/07/24 05/08/24
09: 16:45 04:45
Troponin I 0.968 H* 2.020 H* D 2.650 H*
05/08/24
12:20
Troponin I 1.990 H*
Physical Exam
Constitutional: No acute distress and Comfortable
EENT: Anicteric and Moist mucous membranes
Cardiovascular: Rhythm & rate is regular, Pedal edema is absent and JVD pressure is normal
Respiratory: Respiratory effort normal, Lungs clear to auscul., Crackles Absent and Rhonchi Absent
GI: Soft, Non tender and Normal bowel sounds
Neuro/Psych: Alert, Oriented and AO x 3
Data Reviewed
-
Date of Service: May 09, 2024
Medical Decision Making: Reviewed Test Results and Independent Historian Assessment
EKG: Tracing Personally Visualized and interpreted
Echo: Report Reviewed by me
Labs: Labs Reviewed by me
Old Records: Reviewed
--- NOTE | 2024-05-09 09:22 | W.PN.NEPH.PH ---
Today's Communication / Plan
-
Observe follow BMP
Assessment/Plan
-
Impression:
Chest pain/NSTEMI - acute ST changes on EKG.
CAD (recent PCI RAYNE to ramus intermedius 04/04/24 and RAYNE proximal LAD ISR 04/19/24)
HFpEF - acute on chronic.
Moderate/Severe
HTN
CKD - 3b.(creatinine 1.5-2 on 05/04)
Renal cystic disease
Multiple Myeloma - Chronic with associated anemia
Chronic metabolic acidosis
Plan:
TI:
-Patient will be at increased risk for contrast nephropathy given recent cardiac catheterization today as well as history of congestive heart failure and advanced age and associated with chronic kidney disease stage IIIb
-Troponin peaked at 2.65
-Creatinine down to 2.2: within baseline and nonoliguric
-Checked urinalysis (only trace albumin) recent u/s of kidneys noted renal cystic lesions
-Accurate I's and O, check random PVR with bladder scan
-Diuretics have been initiated by cardiology in setting of elevated pulmonary capillary wedge pressure of 31 and hypervolemia (40mg IV BID)
-Maintain sodium bicarbonate in setting of chronic metabolic acidosis
-Currently hemodynamically stable
-
-
Date of Service: May 09, 2024
CC / HPI / ROS
-
Chief Complaint:
Chronic kidney disease
History of Present Illness:
Creatinine stable at 2.2
Hemodynamically stable
Review of Systems:
Nonoliguric with intermittent straight cath
No fevers
Weight slightly down on diuretics
Labs
-
Labs:
WBC 8.9 10^3/uL (4.8-10.8) 05/09/24 04:25
RBC 2.60 10^6/uL (4.70-6.10) L 05/09/24 04:25
Hgb 8.7 g/dL (13.0-18.0) L 05/09/24 04:25
Hct 24.8 % (39.0-52.0) L 05/09/24 04:25
Plt Count 126 10^3/uL (130-400) L 05/09/24 04:25
Sodium 137 mmol/L (135-145) 05/09/24 04:25
Potassium 4.6 mmol/L (3.5-5.1) 05/09/24 04:25
Chloride 101 mmol/L (98-107) 05/09/24 04:25
Carbon Dioxide 23 mmol/L (22-30) 05/09/24 04:25
BUN 44 mg/dl (9-20) H 05/09/24 04:25
Creatinine 2.2 mg/dL (0.7-1.3) H 05/09/24 04:25
eGFR 28.28 05/09/24 04:25
Glucose 119 mg/dl (70-99) H 05/09/24 04:25
Calcium 7.9 mg/dl (8.4-10.2) L 05/09/24 04:25
Phosphorus 3.8 mg/dl (2.5-4.5) 05/07/24 09:21
Albumin 4.6 g/dl (3.5-5.0) 05/07/24 09:21
Physical Exam
-
Vital Signs:
Vital Signs
Temp Pulse Resp BP Pulse Ox
98.4 F 73 20 141/70 96
05/09/24 07:57 05/09/24 04:12 05/09/24 07:57 05/09/24 04:12 05/09/24 07:57
Cardiovascular:: Regular rate and rhythm
Respiratory:: Bilateral: CTA
Lung Excursion:: Normal
Abdomen:: Nontender
Bowel Sounds:: Normal
Extremity Edema:: None: Bilateral:
Tabor Catheter: No
[2024-05-09] MEDS: HEPARIN 25000 UNITS/250 ML IV (10:15)
[2024-05-09 10:59] LABS: APTT 103.4 Sec (23.4-35.0)
--- NOTE | 2024-05-09 12:29 | PTCARENOTE ---
Patient vomited in the bathroom after breakfast. Epigastric pain, belching and then vomited. Pain did resolve after he vomited. IV Zofran given. Dr. Niño updated and Raheem IV added OTC
[2024-05-09] MEDS: CARAFATE PO ×4 (13:22→21:28)
[2024-05-09] MEDS: REGLAN 10 MG IV ×2 (13:25→21:12)
[2024-05-09] MEDS: DILAUDID 0.25 MG IV (14:02)
--- NOTE | 2024-05-09 14:21 | PTCARENOTE ---
Patient sitting up, looks in distress. Chest pain, hyperventilating with nausea. Notified Dr. Niño, Dilaudid given with relief and now sleeping on his side, appears comfortable
--- NOTE | 2024-05-09 14:58 | PTCARENOTE ---
BP 95/56 after Dilaudid. Titrate Nitro to down to 40 mcg/min (6ml/hr), pain free
--- NOTE | 2024-05-09 15:30 | W.PN.HOSP.TC ---
Today's Communication/Plan
-
added reglan for n/v
discussed with GI for possible reeval for EGD
maintain on ppi/carafate
continue diuretics
wean off as possible
Assessment / Plan
Assessment / Plan
1. Chest pain
NSTEMI status post LAD stenting on 04/19
-Comes in for chest pain/nausea/vomiting
-Admission troponin of 0.968, f/u trop check in evening
-EKG and admission reviewed and patient had significant ST segment depression on
-Underwent emergent left heart catheterization with showing patent coronaries and recently placed stent.
-Currently maintained on IV heparin drip continue per cardio recommendation
-is symptoms/EKG findings related to Subendocardial ischemia? pericarditis?
2. Nausea/vomiting - Ongoing
s/p H pylori treatment
-[facility] and finished the course
-Patient was tested positive based on hydrogen breath test on outpatient basis
-CT a/p did not show any acute abnormalities
-Lipase WNL
-potential gastroparesis vs cardiac cause related vs PUD/gastritis
-maintain on IV BID PPI and carafate.
-Discussed with GI for possible need of EGD and would consider, cardio clearance requested as well.
3. Acute systolic HF
Acute hypoxic resp insufficiency
-EF on TTE down to 35-40%, was normal last month
-[facility] this admit did not show any obstructive CAD
-EF decline related to sev ? rapid declined difficult to explain.
-on IV lasix, f/u weight/cr
4. TI on CKDIIIB
Urinary retention
-Baseline cr of 1.3 in Apr 03. cr elevated to 2.2 today
-Cannot provide empirically IV fluid with history of diastolic heart failure
-Patient has been started on IV Lasix by cardiology, pulm capillary wedge pressure of 31 on heart cath
-Patient having some urinary retention and postvoid residual of 450 mL per nurse, required straight cath ordered.
-nephro following and help appreciated
5. Mod-sev
-ongoing workup for TAVR
-may required expedited evaluation with decreased EF, cardio to decide.
Multiple myeloma
Essential HTN
HLD
FÉLIX
BPH
Full code
Heparin drip
Total time spent : 53 mins
Case discussed with GI, cardio, nephro
Anticipated Discharge: > 48 hours
Subjective/Interval History
-
Date of Service: May 09, 2024
continues to have nausea and vomiting
complaining of epigastric pain and chest discomfort as well
remains on heparin and nitro drip
Objective Data
-
Labs:
Laboratory Results
05/09/24 05/09/24 05/09/24
04:25 10:40 16:15
WBC 8.9
Hgb 8.7 L
Hct 24.8 L
Plt Count 126 L
APTT 113.6 H 103.4 H Pending
Sodium 137
Potassium 4.6
Chloride 101
Carbon Dioxide 23
BUN 44 H
Creatinine 2.2 H
Glucose 119 H
Calcium 7.9 L
Vital Signs:
Vital Signs
Temp Pulse Resp BP Pulse Ox
99.2 F 67 20 95/56 98
05/09/24 14:49 05/09/24 14:53 05/09/24 14:49 05/09/24 14:53 05/09/24 14:53
I&O
05/08/24 05/09/24 05/10/24
06:59 06:59 06:59
Intake Total 59.0 / 59.0 580 / 580
Output Total 730 / 730 900 / 900
Balance -671.0 / -671.0 -320 / -320
Review of Systems
-
Respiratory: Reports No Symptoms
Cardiac: Reports Chest Pain
Abdomen/GI: Reports Abdominal Pain, Nausea and Vomiting
Physical Exam
-
General: No Apparent Distress and Comfortable
HEENT: Oxygen (2L NC)
Respiratory: Clear to Auscultation
Cardiac: Regular Rhythm and S1/S2; Negative Murmur or Rub
GI: Soft, Nontender and Nondistended
Musculoskeletal: No Edema
Neuro: Awake, Alert, Oriented, No Motor Deficits and Nonfocal/Grossly Intact
Psych: Calm
[2024-05-09] MEDS: TYLENOL PO (16:02)
[2024-05-09] MEDS: LIPITOR PO ×2 (16:03→17:14)
[2024-05-09] MEDS: KLONOPIN PO ×2 (16:03→17:14)
[2024-05-09] MEDS: LASIX IV ×2 (16:03→17:14)
--- NOTE | 2024-05-09 16:15 | PTCARENOTE ---
Patient awake, walked to the bathroom, voided, in chair. Dyspneic with activity, intermittent epigastric discomfort, eating dinner in chair, appears more comfortable
[2024-05-09] MEDS: MORPHINE SULFATE 2 MG IV (16:48)
--- NOTE | 2024-05-09 17:06 | PTCARENOTE ---
Patient with chest pain, hyperventilating, chest and epigastric pain, oxygen increased to 6 liter NC, vomited after eating dinner. Morphine 2 mg IV given BP 87/75-93/73. Now 112/69. Nitro gtt stopped. Heparin infusing. EKG done, bedrest maintained
[2024-05-09 17:12] LABS: APTT 74.6 Sec (23.4-35.0)
--- NOTE | 2024-05-09 17:35 | W.PN.UPDATE ---
Addendum entered and electronically signed by Lg Niño MD 05/09/24 19:45:
Repeat Trop 1.43, lower than max trop this admission.
Rechekc in 4 hrs
Addendum entered and electronically signed by Lg Niño MD 05/09/24 19:44:
Care plan discussed with letitia Acosta (hospitalist) and updated.
Requested to have palliative care inolved tomorrow.
He is ok with patient being DNR although spouse unsure. we will re-discuss in morning.
Original Note:
Update Note
Progress Note Update
Patient having significant chest discomfort and in distress
Apparently patient was walking to bathroom and ended up having vomiting episode (second for the day)
Patient was hypotensive with SBP in 80s
Patient was brought back to bed and sitting in bed by the time I am bedside
Patient clasping chest and in visibly agonizing chest discomfort
2mg of morphine pushed without much improvement in symptoms
Repeat EKG showing V3-V4-V5 lead ST seg depression as present on admission
Repeat troponin checks ordered.
I have notified senior information systems architect cardio and discussed the findings and concern of this being possibly small vessel disease and related ischemia.
Patient already on heparin drip that to be continued
Patient if BP allows could be resumed back on nitro drip as well
Cardio has discussed reflexa and getting first dose in evening today
Overall patient condition remains guarded and concern of cardiac/pulmo complications are high
Discussed with family code status and patient to remains full code
Patient to be moved to IMU for close monitoring.
Dilaudid helping with pain better than morphine and will adjust orders. Monitor for sedation/respiratory depression.
Extra time spent : 45 mins
[2024-05-09] MEDS: DILAUDID 1 MG IV (18:05)
--- NOTE | 2024-05-09 18:09 | PTCARENOTE ---
Patient given 1 mg IV Dilaudid with relief, troponin collected 1.430. Now sleeping. CXR completed. BP 117/68
--- NOTE | 2024-05-09 19:26 | PTCARENOTE ---
Report called to Lisbeth. Patient transferred to ICU room 5748
--- NOTE | 2024-05-09 19:50 | PTCARENOTE ---
Received pt from IVU as IMU transfer to room 3361. Pt drowsy but easily arousable, restless when awake--difficult to redirect. Breath sounds diminished t/o, on 6L NC--pulse ox 93-97%. HR 80s-90s, SR. BP 138/93 on arrival. Abdomen rounded, firm. R
groin procedure site assessed with prior RN--unchanged--dressing CDI, small ecchymotic area, soft. Safe environment maintained, call reyes within reach, bed alarm on.
[2024-05-09] MEDS: LASIX 20 MG IV ×2 (21:05→22:05)
[2024-05-09] MEDS: DILAUDID 0.5 MG IV (21:05)
[2024-05-09] MEDS: XANAX 0.25 MG PO (21:11)
[2024-05-09] MEDS: MIRALAX PO (21:11)
[2024-05-09] MEDS: RANEXA EXTENDED RELEASE 500 MG PO (21:12)
--- NOTE | 2024-05-09 22:52 | W.PN.UPDATE ---
Addendum entered and electronically signed by LUZ Robles 05/10/24 06:45:
pt rested well in beginning of shift then twice pt with increased anxiety and restlessness and increased WOB with agitation. Ativan iv given x2. Dose was effective per RN.
Original Note:
Update Note
Progress Note Update
PT was transfer from IVU to IMU at change of shift for ongoing chest pain (cardiac vs GI). Reviewing chart pt with many period of vomiting today, with chest/epigastric pain and hypotension.
CXR taken from 1700 showed pulmonary edema worsened from previous cxr 05/07. Evening lasix was held due to hypotension. BP currently 124/79 HR 84. Since arrival to imu o2 requirments increased from 6L-->15L
lasix 20 ordered initially to watch BP. Then another 20mg given when bp 103s/80s
Asked to have a phone conference with letitia Acosta who is a hospitalist MD regarding code Status. In the presence of RN Lisbeth Baca, on speakerphone with grandmother (pts /POA) he discussed in their [place] language ([place]), and that they
collectively agree pt would not want CPR in the event his heart stopped beating and would not want intubation in the event of respiratory distress. They will discuss with attending in am possible palliative care consult. Dave would like to focus on
pain control.
Will change code status accordingly.
Dave phone number [phone]
[2024-05-10] VITALS (32 sets, daily range): BP systolic 89–136; BP diastolic 50–89; BMI 29.6
[2024-05-10] MEDS: DILAUDID 0.5 MG IV ×7 (01:59→20:36)
--- NOTE | 2024-05-10 02:40 | PTCARENOTE ---
Addendum entered by Lisbeth Baca RN 05/10/24 02:55:
Ativan effective, pt calm and WOB improved.
Original Note:
Pt agitated and restless. Unable to void with condom cath in bed, attempted to stand--unsuccessful. Bladder scanned for 409ml, straight [id number]. Pt tolerated straight cath. Pt briefly calm and then increasingly agitated and restless with
increased WOB. Provider made aware, 0.25mg IVP ativan ordered.
[2024-05-10] MEDS: ATIVAN 0.25 MG IV ×2 (02:44→06:15)
[2024-05-10] MEDS: NSS (PRESERVATIVE FREE) 0.125 ML IV ×2 (02:46→06:15)
[2024-05-10 05:41] LABS: Hematocrit 23.9 % (39.0-52.0); Hemoglobin 8.2 g/dL (13.0-18.0); Mean Corp Hgb Conc. 34.3 g/dL (33.0-37.0); Mean Corpuscular Hgb 32.9 pg (27.0-31.0); Mean Platelet Volume 10.5 fL (7.4-10.4); Platelet Count 125 10^3/uL (130-400); Red Blood Cell Count 2.49 10^6/uL (4.70-6.10); Red Cell Dist. Width 13.2 % (11.5-14.5); White Blood Cell Count 9.9 10^3/uL (4.8-10.8)
[2024-05-10] MEDS: REGLAN 10 MG IV ×2 (05:45→14:00)
[2024-05-10 05:58] LABS: APTT 161.7 Sec (23.4-35.0)
[2024-05-10 06:18] LABS: Blood Urea Nitrogen 47 mg/dl (9-20); Calcium 7.8 mg/dl (8.4-10.2); Carbon Dioxide 22 mmol/L (22-30); Chloride 101 mmol/L (98-107); Estimated Creatinine Clearance 19 ml/min; Glucose 118 mg/dl (70-99); Potassium 4.9 mmol/L (3.5-5.1); Sodium 140 mmol/L (135-145); eGFR 24.26
--- NOTE | 2024-05-10 06:19 | PTCARENOTE ---
Pt with episode of increased restlessness/agitation. HR increased to 120s, pulse ox decreased to low 80s with agitation--remains on 15L midflow. Pt c/o generalized pain/discomfort according to . Pt given PRN dilaudid as ordered and x1 order for
0.25mg ativan IVP. remains at bedside, spoke to grandson (Dave) on speakerphone with pts --both updated. Pt now appears calm and comfortable. Pulse ox 97%, HR 82.
--- NOTE | 2024-05-10 06:51 | W.PN.HOSP.TC ---
Today's Communication/Plan
-
-Transfer to hospice
-Continue to comfort care measures
Assessment / Plan
Assessment / Plan
Impression: The patient is 89 year old male who has a PMH of CAD s/p Multiple Stent, moderate to severe aortic stenosis, HTN, HL, and CKD, anxiety, multiple myeloma,GERD and gastritis with recurrent H. pylori infection re-occurring about every 2
years,BPH presented to ER with severe chest pain, nausea and vomiting. His EKG showed ST changes and his troponin level was found 0.96 concerning for OH. The patient had cardiac catheterization and it was not showed a severe obstruction/stenosis
requiring PCI. The patient was admitted to be observed for his chest pain. Cardiology, Nephrology and GI was consulted for assessment. The patient started to have worsening oxygenation, severe chest pain episodes requiring dilaudid, and lethargy.
Also with worsening kidney function. Family at bedside all on board with comfort care/hospice.
#Chest pain (Subendocardial ischemia? pericarditis?)
-Acute ST changes on EKG-NSTEMI status post LAD stenting on 04/19
-No relief after SL NTG. He does get relief with narcotics.
-Admission troponin of 0.968, fu troponin is fluctuating ( on 05/09 1.550) and trending down.
-Maintained on IV heparin drip continue per cardio recommendation
-Patient had repeat episode of chest pain/cardiac distress on 05/09 evening and EKG showing similar findings as present on admission EKG
- Cardiology recommended to continue medical therapy with symptom control
-Ranolazine started on 05/10
#Nausea/vomiting - Ongoing but improved some
-Hx of recent H pylori treatment
-Patient was on Pre[facility] from 04/20 for H. pylori treatment and finished the course
-CT a/p did not show any acute abnormalities
-potential gastroparesis vs cardiac cause related vs PUD/gastritis
-continue IV BID PPI and carafate.
-Discussed with GI for possible need of EGD and would consider, cardio clearance requested as well.
# Acute systolic HF
Acute hypoxic resp insufficiency
-EF on TTE down to 35-40%, was normal last month
-[facility] this admit did not show any obstructive CAD
-EF decline related to sev ? rapid declined difficult to explain.
- Patient have decreasing response to IV Lasix and renal function worsening
-Patient has been switched to high flow in the afternoon
#TI on CKDIIIB
Urinary retention
-Baseline cr of 1.3 in Apr 03. cr elevated to 2.5 today
-Patient has been started on IV Lasix by cardiology, pulm capillary wedge pressure of 31 on heart cath
-nephro following and help appreciated
# Mod-sev
-ongoing workup for TAVR
-may required expedited evaluation with decreased EF, cardio to decide.
#Multiple myeloma
#Essential HTN
#HLD
#FÉLIX
#BPH
#Code status: : He is protected at this time with DNR/DNI code status.
Anticipated Discharge: 24 - 48 hours
Subjective/Interval History
-
Date of Service: May 10, 2024
The patient was seen in his bed and reports chest pain. Ranked his pain 6/10 and reported some ongoing nausea.
Objective Data
-
Labs:
Laboratory Results
05/10/24 05/10/24
05:29 05:32
WBC 9.9
Hgb 8.2 L
Hct 23.9 L
Plt Count 125 L
APTT 161.7 H*
Sodium 140
Potassium 4.9
Chloride 101
Carbon Dioxide 22
BUN 47 H
Creatinine 2.5 H
Glucose 118 H
Calcium 7.8 L
Vital Signs:
Vital Signs
Temp Pulse Resp BP Pulse Ox
98.4 F 100 36 120/70 91
05/09/24 19:01 05/10/24 02:30 05/10/24 02:30 05/10/24 02:30 05/10/24 02:30
I&O
05/08/24 05/09/24 05/10/24
06:59 06:59 06:59
Intake Total 59.0 / 59.0 580 / 580
Output Total 730 / 730 900 / 900 300 / 300
Balance -671.0 / -671.0 -320 / -320 -300 / -300
Review of Systems
-
EENT: Reports No Symptoms Reported
Respiratory: Reports No Symptoms
Cardiac: Reports Other (See HPI)
Abdomen/GI: Reports Other (See HPI)
Genitourinary: Reports No Symptoms
Musculoskeletal: Reports No Symptoms
Skin: Reports No Symptoms
Neuro: Reports No Symptoms
Physical Exam
-
General: Appears Chronically Ill
HEENT: Normocephalic and Atraumatic
Respiratory: Other ( Respiratory effort normal)
Cardiac: Regular Rhythm, S1/S2 and Murmur (Systolic )
GI: Soft, Nontender and Nondistended
Musculoskeletal: No Clubbing
Skin: Warm
Neuro: Other (Asleep. Arouses to verbal stimuli)
--- NOTE | 2024-05-10 08:34 | VNURNOTE ---
chart reviewed. patient is current with [facility] nursing, PT, OT. Will continue to follow hospital course/ DC plans.
[2024-05-10] MEDS: TOPROL XL 25 MG PO (08:54)
[2024-05-10] MEDS: PLAVIX 75 MG PO (08:54)
[2024-05-10] MEDS: RANEXA EXTENDED RELEASE 500 MG PO (08:54)
[2024-05-10] MEDS: MIRALAX 17 GRAMS PO (08:54)
[2024-05-10] MEDS: PROSCAR 5 MG PO (08:55)
[2024-05-10] MEDS: ASPIR LOW (ENTERIC COATED) 81 MG PO (08:55)
[2024-05-10] MEDS: LASIX 40 MG IV ×2 (08:55→16:06)
[2024-05-10] MEDS: CARAFATE 1 GRAM PO ×2 (08:55→11:47)
[2024-05-10] MEDS: PROTONIX IV 40 MG IV (08:56)
[2024-05-10] MEDS: NSS (PRESERVATIVE FREE) 10 ML IV (08:56)
--- NOTE | 2024-05-10 10:17 | PTCARENOTE ---
Addendum entered by Marylu Condon RN 05/10/24 10:52:
prior shift vital signs captured, unable to verify accuracy
Original Note:
report received, assessments per work list. spouse at bed side. utilizing video spa attendant, reviewed plan of care, assessments completed. patient denies pain but c/o continued dyspnea. very drowsy. intermittently confused. forgetful. monitor nsr,
heparin per work list. patient c/o need to void. bladder scan 100, unable to void in bed with urinal. stood at bedside with max assist of 2. voided 25 ml urine. very dyspneic with exertion. midflow continues. bed alarm activated. call reyes in reach.
hospitalist updated with assessments. palliative care consult ordered
--- NOTE | 2024-05-10 10:29 | W.PN.CD ---
Today's Communication / Plan
-
Increase diuretic.
Check lactic acid.
Goals of care discussion.
Impression / Plan
-
Impression/Plan: 89 y/o male with HTN, CKD3B, multiple myeloma, severe CAD s/p prior PCI, severe aortic valve stenosis and acute on chronic heart failure with newly depressed ejection fraction.
#Chest pain/NSTEMI
-Acute ST changes on EKG.
-Severe pain for 2 days w/o relief after SL NTG. He does get relief with narcotics.
-[facility] with stable disease, no target for PCI and elevated filling pressures.
-Ranolazine started.
-Continue aspirin, atorvastatin, clopidogrel, metoprolol.
-Possible GI source of pain. GI consulted - input appreciated.
#HFmEF
-Acute on chronic.
-Decline is EF is new, now 35-40%.
-Severe volume overload (LVEDP = 31 mmHg).
-Continue furosemide IV as hemodynamics and BP will tolerate.
#Severe
-Chronic.
-Mean gradient 36 mmHg on echo and cath.
-LV systolic function is now impaired.
-IV diuresis for heart failure.
-Expedited valve workup vs. palliative care.
-Valve workup limited by renal function.
#HTN
-Chronic, currently more hypotensive.
-Assess BP with GDMT.
#CKD - 3b.
-Nephrology following - appreciate input.
-The patient's renal function is not due to prerenal azotemia (LVEDP = 31 mmHg), possibly cardiorenal syndrome or progression of multiple myeloma.
#Multiple Myeloma
-Chronic with associated anemia.
#Dispo
-IMU status.
-The patient is critically ill and is not currently a candidate for any invasive procedure.
-I discussed this at length with the patient's grand-daughter's and their aunt. At this time, any cardiovascular procedure would only expose the patient to the procedural risk without discernable benefit.
-Palliative care at bedside. The patient's daughter is en route (from [place]).
Subjective/Interval History:
Ranolazine and morphine given for chest pain yesterday.
Patient reportedly vomiting with chest/epigastric comfort and hypotension yesterday.
The patient was hypotensive with CXR showing pulmonary edema, worsened from 05/07/2024.
Patient is now on 15L.
The patient is now DNR.
Possible palliative discussion.
Weight is down 0.4 kg from yesterday, down 1.3 kg from admission.
Troponin is stuttering - 0.968 --> 2.020 --> 2.650 --> 1.990 --> 1.430 --> 1.550.
Creatinine up to 2.5.
CT abdomen/pelvis shows now acute abnormality, non-obstructive nephrolithiasis, now hydronephrosis.
UA negative.
DATA:
Cardiac Catheterization, 05/07/2024:
CONCLUSIONS
1:�Presentation with ACS with ongoing chest discomfort and diffuse ST segment depression on ECG
2:�Markedly elevated filling pressures with moderate pulmonary hypertension
3. At least moderate with mean gradient 26mmHg
4. Patent recently placed proximal LAD stent with residual diffuse significant multivessel CAD as described. Compared with the prior angiogram from 04/19/2024, I see no culprit lesion appropriate for PCI
5. Total contrast 46 mL Visipaque
6. The patient was given Lasix 40 mg IV and IV nitroglycerin at 20 mcg/min infusion in the [facility]. The femoral venous sheath was removed with manual compression in the [place]. On transfer out of the [facility] [place], the patient denied ongoing chest
discomfort but did complain of diffuse abdominal discomfort. There was no rebound tenderness and no real direct tenderness on examination. He remains critically ill requiring O2 4 L/min to maintain O2 sat of 93%. He will be admitted to internal
medicine and transferred to the ICU. Chest x-ray and echocardiography will be urgently requested. Heparin will resume in 3 hours.
Transthoracic Echocardiogram, 05/07/2024:
CONCLUSIONS
Left ventricular ejection fraction is 35-40%. Moderate basal to mid
anteroseptal, inferoseptal, basal inferolateral, and basal inferior
hypokinesis.
Normal right ventricular size and function.
Mild to moderate mitral regurgitation.
Severe aortic stenosis; peak mean gradients are 64/35 mmHg, calculated LUDY is
0.8 cm2.
Compared to previous echo on 04/05/2024, there is now a decline in LVEF
(previously 55-60%). Slightly progressive mitral regurgitation is noted.
Cardiac Catheterization/PCI, 04/19/2024:
CONCLUSIONS:
1. Right dominant circulation with a 40% lesion in the proximal RCA, a 30% lesion in the distal RCA, a 30-40% lesion in the mid circumflex, a patent stent in the proximal margin of OM 2, a 40-50% lesion in the proximal ramus, a patent stent in the
mid ramus, a 40-50% tapering of the distal left main and occlusive, 50-60% lesion in the proximal LAD beginning in the [place] vessel but extending into the proximal margin of the LAD stent (IFR = 0.82) status post successful PCI ([employer] [place] 3.5 x 15 RAYNE, postdilated with a 3.75 NC balloon to 20 curtis) with reduction in stenosis to 0%, maintaining GROVER-3 flow.
2. Probably severe aortic valve stenosis (mean gradient = 36.2 mmHg, LUDY = 0.98 cm�).
3. Moderately elevated filling pressures (LVEDP = 22 mmHg, PCWP = 22 mmHg at 75.7 kg) with evidence of diastolic dysfunction (LV A wave to 36 mmHg).
4. Concordance on simultaneous LV/PA and LV/RV tracings.
Physical Exam
Vital Signs/Labs
Vital Signs
Temp Pulse Resp BP Pulse Ox
36.4 C 86 36 119/88 91
05/10/24 07:31 05/10/24 08:55 05/10/24 02:30 05/10/24 08:55 05/10/24 02:30
05/08/24 05/09/24 05/10/24
11:59 11:59 11:59
Actual Weight 76.7 kg 76.2 kg 75.8 kg
05/10/24 05:29
05/10/24 05:29
PT 14.1 Sec (11.4-14.6) 05/07/24 09:21
INR 1.11 05/07/24 09:21
APTT 161.7 Sec (23.4-35.0) H* 05/10/24 05:32
Magnesium 2.6 mg/dl (1.6-2.3) H 05/07/24 09:21
Triglycerides 78 mg/dl (10-149) 05/08/24 04:45
LDL Cholesterol, Calc 83 mg/dl 05/08/24 04:45
VLDL Cholesterol, Calc 15 mg/dl (0-30) 05/08/24 04:45
HDL Cholesterol 42 mg/dl 05/08/24 04:45
LAB Results
05/07/24 05/08/24 05/08/24
16:45 04:45 12:20
Troponin I 2.020 H* D 2.650 H* 1.990 H*
05/09/24 05/09/24
17:14 22:04
Troponin I 1.430 H* 1.550 H*
Physical Exam
Constitutional: No acute distress and Comfortable
EENT: Anicteric and Moist mucous membranes
Cardiovascular: Rhythm & rate is regular, Pedal edema is absent, JVD pressure is normal and Systolic murmur present
Respiratory: Respiratory effort normal and Other (Decreased throughout.)
GI: Soft, Distention absent, Flat, Non tender and Normal bowel sounds
Neuro/Psych: Other (Asleep. Arouses to verbal stimuli.)
Other: Cath Site (Right radial access site is C/D/I.)
Data Reviewed
-
Date of Service: May 10, 2024
Medical Decision Making: Reviewed Test Results, Independent Historian Assessment, Test Interpretation and Review of Case with other Provider
EKG: Tracing Personally Visualized and interpreted and Report Reviewed by me
Echo: Tracing Personally Visualized and interpreted and Report Reviewed by me
X-Ray/CT/US/MRI/NUC/PET: Image Personally Visualized and interpreted and Report Reviewed by me
Medical Tests (PFT, Pathology etc): Image Personally Visualized and interpreted and Report Reviewed by me
Labs: Labs Reviewed by me
Old Records: Reviewed
--- NOTE | 2024-05-10 10:55 | W.PN.NEPH.PH ---
Today's Communication / Plan
-
resume diuretics
Assessment/Plan
-
Impression:
Chest pain/NSTEMI - acute ST changes on EKG.
CAD (recent PCI RAYNE to ramus intermedius 04/04/24 and RAYNE proximal LAD ISR 04/19/24)
HFpEF - acute on chronic.
Moderate/Severe
HTN
CKD - 3b.(creatinine 1.5-2 on 05/04)
Renal cystic disease
Multiple Myeloma - Chronic with associated anemia
Chronic metabolic acidosis
Plan:
TI:
-Patient will be at increased risk for contrast nephropathy given recent cardiac catheterization today as well as history of congestive heart failure and advanced age and associated with chronic kidney disease stage IIIb
-Creatinine up at 2.5 suspect cardiorenal
-Checked urinalysis (only trace albumin) recent u/s of kidneys noted renal cystic lesions
-Accurate I's and O, check random PVR with bladder scan, low threshold for powers
-Diuretics held but would resume since pulmonary capillary wedge pressure of 31 and hypervolemia on 05/07
-Maintain sodium bicarbonate in setting of chronic metabolic acidosis
-Currently hemodynamically stable but tenuous rep status
palliative care meeting today
family ambrocio of poor prognosis
d/w nursing
high risk encounter
-
-
Date of Service: May 10, 2024
CC / HPI / ROS
-
Chief Complaint:
Chronic kidney disease
History of Present Illness:
Creatinine up at 2.5, non oliguric but required SC
Hemodynamically stable
increasing O2 requirement , was on 15lit
Review of Systems:
no pain but sob on
Weight slightly down on diuretics
Labs
-
Labs:
WBC 9.9 10^3/uL (4.8-10.8) 05/10/24 05:29
RBC 2.49 10^6/uL (4.70-6.10) L 05/10/24 05:29
Hgb 8.2 g/dL (13.0-18.0) L 05/10/24 05:29
Hct 23.9 % (39.0-52.0) L 05/10/24 05:29
Plt Count 125 10^3/uL (130-400) L 05/10/24 05:29
Sodium 140 mmol/L (135-145) 05/10/24 05:29
Potassium 4.9 mmol/L (3.5-5.1) 05/10/24 05:29
Chloride 101 mmol/L (98-107) 05/10/24 05:29
Carbon Dioxide 22 mmol/L (22-30) 05/10/24 05:29
BUN 47 mg/dl (9-20) H 05/10/24 05:29
Creatinine 2.5 mg/dL (0.7-1.3) H 05/10/24 05:29
eGFR 24.26 05/10/24 05:29
Glucose 118 mg/dl (70-99) H 05/10/24 05:29
Calcium 7.8 mg/dl (8.4-10.2) L 05/10/24 05:29
Phosphorus 3.8 mg/dl (2.5-4.5) 05/07/24 09:21
Albumin 4.6 g/dl (3.5-5.0) 05/07/24 09:21
Physical Exam
-
Vital Signs:
Vital Signs
Temp Pulse Resp BP Pulse Ox
97.5 F 83 25 96/50 97
05/10/24 07:31 05/10/24 10:38 05/10/24 10:38 05/10/24 10:38 05/10/24 10:38
Cardiovascular:: Regular rate and rhythm
Lung Excursion:: Abnormal (tachypneic and decreased )
Abdomen:: Nontender and Soft
Extremity Edema:: None: Bilateral:
Powers Catheter: No
[2024-05-10] MEDS: XANAX 0.25 MG PO (11:47)
--- NOTE | 2024-05-10 11:51 | CM ---
CM met with pt and granddtrs Wellman and Zhou [facility]
Pt did not participate in meeting
Pt resides with his spouse/Alisha in a [place] with [place]
Pt is independent with his ADLs with use of a WW
Typically AxO 3x at baseline
Current with [facility]
Cymro speaking- does not understand [place] Irish
PCP- Toby Mcgregor
Rx- Syd-Italo
Pt currently on 15L O2
On-going GOC with family
Palliative consult pending
Grandson/Dave [phone] is a hospitalist in [place]
He is flying in today to assist with decision making and coordination of care
Discharge Disposition- TBD
--- NOTE | 2024-05-10 12:05 | PTCARENOTE ---
patient took a few bites of cereal, then became agitated, restless, c/o pain. prn medications administered. Hospitalist updated. orders received
--- NOTE | 2024-05-10 13:15 | W.CON.PAL ---
Consultation
-
Date/Time Consultation Requested: 05/10/24
Date/Time Consultation Performed: 05/10/24
Requesting Provider: Lg Niño
Performing Provider: Clover Bates
Reason for Consult: Goals of Care Discussion
Primary Diagnosis: end stage CAD, renal failure
Consult Requested By: Patient's Family and Patient's Physician
Reason for Admission
Illness Course/HPI
89 year old M with PMH of multiple myeloma, extensive CAD with 2 recent caths with stents 04/03 and 05/04. severe aortic stenosis, HTN/HLD and CKD3 admitted with severe chest pain, nausea and vomiting.
Upon admission had ST depressions on EKD, underwent urgent cath which showed no significant blockages and patent stents. Started on nitro and heparin. Continues to have episodes of severe chest pain - likely from small vessel disease vs severe vs
GI related vs combination of all three. Now with hypotension, increasing 02 requirements. Diuresis difficult due to hypotension.
Last evening patient and family agreed patient should be DNR/DNI. He is awaiting more family coming from [facility]. Herson Acosta is hospitalist who is arriving later today.
At bedside this PM spoke with patients 2 granddaughters as well as one daughter. Patient is lethargic, unable to participate in conversation. Per granddaughters, mostly everyone is in agreement that he should just be made comfortable. Their mother
(patients daughter) is having a difficult time with accepting that there is nothing else to be done and that he is too sick at this point to tolerate any further procedures, so none are being offered at this time. Patient is , his is
'getting there' in terms of being on board with full comfort care. We discussed once family is on the same page, can transition to full comfort measures and GIP hospice as he is likely to pass here and would not tolerate a transfer to home.
Pain & Symptom Assessment
Patient Symptoms
Patient Symptoms: Other (unable to rate - has episodes of severe chest pain relieved with dilaudid )
Objective Data
-
Objective Data:
Vital Signs
Temp Pulse Resp BP Pulse Ox
100.5 F H 83 25 96/50 97
05/10/24 12:00 05/10/24 10:38 05/10/24 10:38 05/10/24 10:38 05/10/24 10:38
Laboratory Results
05/10/24 05:29
05/10/24 05:29
PT 14.1 Sec (11.4-14.6) 05/07/24 09:21
INR 1.11 05/07/24 09:21
APTT 161.7 Sec (23.4-35.0) H* 05/10/24 05:32
Total Protein 7.8 g/dl (6.3-8.2) 05/07/24 09:21
Albumin 4.6 g/dl (3.5-5.0) 05/07/24 09:21
Urine Color Cancelled 05/08/24 19:30
Urine Clarity Cancelled 05/08/24 19:30
Urine pH Cancelled 05/08/24 19:30
Ur Specific [place] Cancelled 05/08/24 19:30
Urine Ketones Cancelled 05/08/24 19:30
Urine Occult Blood Cancelled 05/08/24 19:30
Urine Nitrite Cancelled 05/08/24 19:30
Urine Bilirubin Cancelled 05/08/24 19:30
Ur Leukocyte Esterase Cancelled 05/08/24 19:30
Urine Albumin Cancelled 05/08/24 19:30
Palliative Performance Scale
Palliative Performance Scale:
PPS Level Ambulation Activity & Evidence of Disease Self Care Intake Conscious Level
100% Full Normal Activity & Work; Full Intake Full
No Evidence of Disease
90% Full Normal Activity & Work; Full Normal Full
Some Evidence of Disease
80% Full Normal Activity with Effort Full Normal or Full
Some Evidence of Disease Reduced
70% Reduced Unable Normal Job/Work Full Normal or Full
Significant Disease Reduced
60% Reduced Unable Hobby/Housework Occasional Normal or Full or Confusion
Significant Disease Assistance Reduced
50% Mainly Sit/Lie Unable to do Any Work Considerable Normal or Full or Confusion
Extensive Disease Assistance Req'd Reduced
40% Mainly in Bed Unable to do Most Activity Mainly Assistance Normal or Full or Drowsy;
Extensive Disease Reduced +/- Confusion
30% Totally Bed Unable to do Any Activity Total Care Normal or Full or Drowsy;
Bound Extensive Disease Reduced +/- Confusion
20% Totally Bed Bound Unable to do Any Activity Total Care Minimal to Full or Drowsy;
Extensive Disease Sips +/- Confusion
10% Totally Bed Bound Unable to do Any Activity Total Care Mouth Care Drowsy or Coma;
Extensive Disease Only +/- Confusion
0%
PPS Score Level:
Physical Exam
-
General: Pain and Unresponsive
HEENT: Normocephalic
Respiratory: Clear to Auscultation
Cardiac: Regular Rhythm
Peripheral Vascular: Edema, Right Upper Extremity and Edema, Left Upper Extremity
GI: Soft and Nontender
Skin: Warm
Neuro: Other (lethargic )
Psych: Calm
Assessment / Plan
-
Assessment/Plan:
89 year old M with severe CAD, MM, severe , CKD admitted with severe CP. Cath with no significant blockages. Now with worsening oxygenation, severe chest pain episodes requiring dilaudid, and lethargy. Also with worsening kidney function.
Family at bedside all on board with comfort care/hospice. Patients one daughter having a difficult time accepting this, coming from [facility] tonight to see him. Plan for family to meet together [facility] to hopefully come to a consensus. Would be a
candidate for [facility] level hospice here at the hospital given significant symptom burden and 02 requirements. He is protected at this time with DNR/DNI code status.
Will follow up tomorrow as needed.
Care Reviewed
Data Reviewed
Chest X ray: Image Reviewed
Warehouseman procedure: Image Reviewed
Medical Tests: I reviewed
Reviewed with: Family
[2024-05-10] MEDS: HEPARIN 25000 UNITS/250 ML IV (13:24)
[2024-05-10] MEDS: NSS (PRESERVATIVE FREE) 0.25 ML IV ×2 (13:25→17:42)
[2024-05-10 13:30] LABS: APTT 66.7 Sec (23.4-35.0)
[2024-05-10] MEDS: ATIVAN 0.5 MG IV (13:30)
[2024-05-10] MEDS: DILAUDID 1 MG IV (13:40)
--- NOTE | 2024-05-10 13:48 | PTCARENOTE ---
patient continued to be agiated, atempting to get up from bed to urinate, unable to stand. bladder scan per work list. patient became agiated, ripping off oxygen, combative with staff. Dr Niño informed, at bedside. powers placed, additional stat
dilaudid given, restraints applied per patient safety. pulse oximeter 70's. placed on non rebreather in addition to mid flow. then transitioned to high flow nasal cannula. patient now sedate. no distress. family at bedside, updated.
[2024-05-10] MEDS: MAXIPIME 1000 MG IV (14:00)
[2024-05-10] MEDS: STERILE WATER FOR INJECTION 10 ML IV (14:00)
--- NOTE | 2024-05-10 14:49 | W.PN.UPDATE ---
Addendum entered and electronically signed by Lg Niño MD 05/12/24 17:12:
In response to CDI query
Acute metabolic encephalopathy - from worsening hypoxic respiratory failure and HF
Original Note:
Update Note
Progress Note Update
I saw and evaluated the patient. I reviewed the resident�s note and agree with findings and plan as documented in the resident�s note.
Patient developed further hypoxia and requiring to be on mid flow 15 L overnight
Repeat chest x-ray on imaging showing worsening pulmonary edema as well
Patient remains agitated and requiring doses of Dilaudid/Ativan to keep patient comfortable
Patient family at bedside and palliative care team has evaluated patient in the morning.
1. Chest pain - presuming episodes of small vessel disease/subendocardial ischemia
NSTEMI status post LAD stenting on 04/19
-Comes in for chest pain/nausea/vomiting
-Trop max of 2.6, trended down
-EKG and admission reviewed and patient had significant ST segment depression in V3-V4-v5 leads
-Underwent emergent left heart catheterization with showing patent coronaries and recently placed stent.
-Currently maintained on IV heparin drip continue per cardio recommendation
-Patient had repeat episode of chest pain/cardiac distress on 05/09 evening and EKG showing similar findings as present on admission EKG
-Discussed with cardiology and recommended to continue medical therapy with symptom control. Ranexa added as well to help with vasodilation as well.
2. Nausea/vomiting - Improved
s/p H pylori treatment
-Patient on Prevpac from 04/20 for H. pylori treatment and finished the course
-Patient was tested positive based on hydrogen breath test on outpatient basis
-CT a/p did not show any acute abnormalities
-Lipase WNL
-potential gastroparesis vs cardiac cause related vs PUD/gastritis
-maintain on IV BID PPI and carafate.
-Discussed with GI for possible need of EGD and would consider, cardio clearance requested as well.
3. Acute systolic HF
Acute hypoxic resp failure
-EF on TTE down to 35-40%, was normal last month
-[facility] this admit did not show any obstructive CAD
-EF decline related to sev ? rapid declined difficult to explain.
-Patient have decreasing response to IV Lasix and renal function worsening.
-Chest x-ray showing worsening pulmonary edema and increased oxygen requirement as well
-Patient has been switched to high flow in the afternoon
4. TI on CKDIIIB
Urinary retention
-Baseline cr of 1.3 in Apr 03. cr continues to be elevated and 2.5 today, urine output is decreasing with lasix dose, potential sign of problematic
-Patient has been started on IV Lasix by cardiology, pulm capillary wedge pressure of 31 on heart cath
-nephro following and help appreciated
-Tabor catheter placed
5. Mod-sev
-ongoing workup for TAVR
-may required expedited evaluation with decreased EF, cardio to decide.
Multiple myeloma
Essential HTN
HLD
FÉLIX
BPH
Full code
Heparin drip
Patient have worsening hypoxic respiratory failure/HF and not responding to IV lasix therapy. Patient have poor prognosis and palliative care was involved in evaluation as per family request.
Patient required to have soft restraints as agitated. Requiring high-dose of Dilaudid/Ativan to keep patient comfortable patient appropriate to be switched to inpatient hospice care, patient family member planning to visit later in the day.
Total critical care time 38 . Total critical care time documented does not include time spent on separately billed procedures or the services of residents, students, nurses or physician assistants. I personally saw and examined the patient. I have
reviewed all diagnostic interpretations and treatment plans as written. I was present for the [place] portions of any procedures performed and the inclusive time noted in any critical care statement. Critical care time includes patient management by me,
time spent at the patients bedside, time to review lab and imaging results, discussing patient care, documentation in the medical record, and time spent with the family or caregiver.
--- NOTE | 2024-05-10 15:37 | W.PN.UPDATE ---
Update Note
Progress Note Update
Discussed care plan with Dave
Patient is more agitated and needing high-flow for oxygen support
Patient is appropriate for comfort care and transition to inpatient hospice if stabilized
I have discussed this with grandson/Dave who is in agreement.
Discussed with RN and comfort care orders are placed with order to be utilized once grandson is here and able to see patient.
[2024-05-10] MEDS: DILAUDID 50 IV (16:07)
--- NOTE | 2024-05-10 16:26 | PTCARENOTE ---
patient transitioned to comfort care. Dilaudid gtt initiated, prn dose given for respiratory distress
[2024-05-10] MEDS: ATIVAN 1 MG IV ×2 (17:41→19:57)
[2024-05-10] MEDS: STERILE WATER FOR INJECTION IV (23:08)
--- NOTE | 2024-05-11 00:14 | PTCARENOTE ---
Pt received at 19:00. Pt on comfort measures, and grandson at bedside. Pt received intermittent bolus doses of dilaudid for dyspnea. Order received to increase dilaudid infusion/bolus to step 3. Pts daughter arrived and remains at bedside. Pt
appears to be resting comfortably.
--- NOTE | 2024-05-11 06:38 | W.PN.DEATH ---
Pronouncement of
-
Called to see patient to pronounce.
No spontaneous heart tones or respirations noted.
Patient not responsive to verbal stimuli.
Patient is pronounced .
Time of : 06:27
Date of : 05/11/24
Cause of : acute hypoxic respiratory failure, acute systolic heart failure, severe aortic stenosis
Family Notified: Yes (family at bedside)
--- NOTE | 2024-05-11 09:00 | W.DCSUMMARY ---
Documented by User: Noris iRvero MD, Resident 05/11/24 13:32
Discharge Summary
Discharge Data
Date of Admission: 05/07/24
Date of Discharge: 05/11/24
-
Pending Results: No
Hospital Course
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
Chronic problems at admission: CAD s/p Multiple Stent, moderate to severe aortic stenosis, HTN, HL, and CKD, anxiety, multiple myeloma,GERD and gastritis with recurrent H. pylori infection re-occurring about every 2 years,BPH
Hospital Course: The patient presented to ER on 05/07 with severe chest pain, nausea and vomiting. His EKG showed ST changes and his troponin level was found 0.96 concerning for DE. The patient had cardiac catheterization and it was not showed a
severe obstruction/stenosis requiring PCI. The patient was admitted to be observed for his chest pain. Cardiology, Nephrology and GI was consulted for assessment. The patient started to have worsening oxygenation, severe chest pain episodes
requiring Dilaudid, and lethargy. Also with worsening kidney function. The patient developed further hypoxia last night and repeat chest X ray showed worsening pulmonary edema. Patient was agitated and required doses of Dilaudid/Ativan to keep the
patient comfortable. This morning the patient did not have spontaneous heart tones or respirations. Patient was not responsive to verbal stimuli. Patient is pronounced on 05/11.
Problem 1: Chest pain: presuming episodes of small vessel disease/subendocardial ischemia:The patient underwent emergent left heart catheterization when he presented to ER with showing patent coronaries and recently placed stent. He was maintained
on IV heparin drip and it was continued per cardio recommendation. Patient had repeat episode of chest pain/cardiac distress on 05/09 evening and EKG showing similar findings as present on admission EKG which was discussed with cardiology and
recommended to continue medical therapy with symptom control by cardiology. Ranexa added by cardiology as well to help with vasodilation as well.
Problem 2 : Nausea/vomiting:Patient was on Prevpac from 04/20 for H. pylori treatment and finished the course. Discussed with GI for possible need of EGD. He was maintained on IV BID PPI and carafate by GI.
-
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 Baseline cr of the patient was 1.3 in Apr 03. Creatinine level continued to increase and Nephrology was
consulted. The patient had Tabor catheter placed due urinary retention.
Problem 4: 3. Acute systolic HF: The patient developed Acute hypoxic respiratory failure. His EF was found down on TTE to 35-40%, was normal last month. C this admit did not show any obstructive CAD at this admission. Patient had decreasing
response to IV Lasix and renal function got worsening. His repeat Chest x-ray on 05/09 showing worsening pulmonary edema. The patient had increased oxygen requirement as well.
Patient has been switched to high flow O2.
Other medical problems:Includes od-sev , Multiple myeloma, Essential HTN, HLD, FÉLIX, BPH. These problems were treated as able to.
Important imaging/other studies:
Chest X ray 05/07
IMPRESSION: Increased bilateral reticular opacities most likely related to interstitial edema.
Catheterization Lab Report 05/07:
Closure Device: None- the procedure was performed via the right radial artery and right femoral vein
�
Radiation (mGy): 382
DAP (cm2.Gy): 37.1
Fluoroscopy time: 7.2 minutes
�
CONCLUSIONS
1:�Presentation with ACS with ongoing chest discomfort and diffuse ST segment depression on ECG
2:�Markedly elevated filling pressures with moderate pulmonary hypertension
3. At least moderate with mean gradient 26mmHg
4. Patent recently placed proximal LAD stent with residual diffuse significant multivessel CAD as described. Compared with the prior angiogram from 04/19/2024, I see no culprit lesion appropriate for PCI
5. Total contrast 46 mL Visipaque
6. The patient was given Lasix 40 mg IV and IV nitroglycerin at 20 mcg/min infusion in the [facility]. The femoral venous sheath was removed with manual compression in the [facility]. On transfer out of the [facility], the patient denied ongoing chest
discomfort but did complain of diffuse abdominal discomfort. There was no rebound tenderness and no real direct tenderness on examination. He remains critically ill requiring O2 4 L/min to maintain O2 sat of 93%. He will be admitted to internal
medicine and transferred to the ICU. Chest x-ray and echocardiography will be urgently requested. Heparin will resume in 3 hours.
Abdomen/Pelvis CT 05/07
IMPRESSION: No acute pathology of the abdomen or pelvis identified.
too small to characterize hypodense hepatic lesion likely a small cyst or hemangioma. Stable
Simple bilateral renal cysts. Stable
Nonobstructing left renal stone. Stable
Small bilateral pleural effusions. New
Moderate bibasilar consolidation. New
Moderate fecal material in the colon. Stable
Mild diverticulosis. Stable
Chest X ray 05/09
IMPRESSION:
Diffusely increased interstitial and small alveolar opacities, pattern highly suggestive of pulmonary edema. There appears to have been progression since most recent examination of May 07, 2024.
Pronouncement of
Called to see patient to pronounce.
No spontaneous heart tones or respirations noted.
Patient not responsive to verbal stimuli.
Patient is pronounced .
Time of :
Date of : 05/11/24
Cause of : acute hypoxic respiratory failure, acute systolic heart failure, severe aortic stenosis
Family Notified: Yes (family at bedside)
Discharge Plan
-
Patient Disposition:
Date/Time
Date/Time: 05/11/24 06:27
Discharge Date and Time
Discharge Date/Time: 05/11/24 06:27
Print Language: DOMINICAN

Documented by User: [email or web address] MD 05/11/24 16:33
Discharge Summary
Discharge Data
Date of Admission: 05/07/24
Date of Discharge: 05/11/24
Hospital Course
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
Chronic problems at admission: CAD s/p Multiple Stent, moderate to severe aortic stenosis, HTN, HL, and CKD, anxiety, multiple myeloma,GERD and gastritis with recurrent H. pylori infection re-occurring about every 2 years,BPH
Hospital Course: The patient presented to ER on 05/07 with severe chest pain, nausea and vomiting. His EKG showed ST changes and his troponin level was found 0.96 concerning for DE. The patient had cardiac catheterization and it was not showed a
severe obstruction/stenosis requiring PCI. The patient was admitted to be observed for his chest pain. Cardiology, Nephrology and GI was consulted for assessment. The patient started to have worsening oxygenation, severe chest pain episodes
requiring Dilaudid, and lethargy. Also with worsening kidney function. The patient developed further hypoxia last night and repeat chest X ray showed worsening pulmonary edema. Patient was agitated and required doses of Dilaudid/Ativan to keep the
patient comfortable. This morning the patient did not have spontaneous heart tones or respirations. Patient was not responsive to verbal stimuli. Patient is pronounced on 05/11 627.
Problem 1: Chest pain: presuming episodes of small vessel disease/subendocardial ischemia:The patient underwent emergent left heart catheterization when he presented to ER with showing patent coronaries and recently placed stent. He was maintained
on IV heparin drip and it was continued per cardio recommendation. Patient had repeat episode of chest pain/cardiac distress on 05/09 evening and EKG showing similar findings as present on admission EKG which was discussed with cardiology and
recommended to continue medical therapy with symptom control by cardiology. Ranexa added by cardiology as well to help with vasodilation as well.
Problem 2 : Nausea/vomiting:Patient was on Prevpac from 04/20 for H. pylori treatment and finished the course. Discussed with GI for possible need of EGD. He was maintained on IV BID PPI and carafate by GI.
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 Baseline cr of the patient was 1.3 in Apr 03. Creatinine level continued to increase and Nephrology was
consulted. The patient had Tabor catheter placed due urinary retention.
Problem 4: 3. Acute systolic HF: The patient developed Acute hypoxic respiratory failure. His EF was found down on TTE to 35-40%, was normal last month. [facility] this admit did not show any obstructive CAD at this admission. Patient had decreasing
response to IV Lasix and renal function got worsening. His repeat Chest x-ray on 05/09 showing worsening pulmonary edema. The patient had increased oxygen requirement as well.
Patient has been switched to high flow O2.
Other medical problems:Includes od-sev , Multiple myeloma, Essential HTN, HLD, FÉLIX, BPH. These problems were treated as able to.
Important imaging/other studies:
Chest X ray 05/07
IMPRESSION: Increased bilateral reticular opacities most likely related to interstitial edema.
Catheterization Lab Report 05/07:
Closure Device: None- the procedure was performed via the right radial artery and right femoral vein
�
Radiation (mGy): 382
DAP (cm2.Gy): 37.1
Fluoroscopy time: 7.2 minutes
�
CONCLUSIONS
1:�Presentation with ACS with ongoing chest discomfort and diffuse ST segment depression on ECG
2:�Markedly elevated filling pressures with moderate pulmonary hypertension
3. At least moderate with mean gradient 26mmHg
4. Patent recently placed proximal LAD stent with residual diffuse significant multivessel CAD as described. Compared with the prior angiogram from 04/19/2024, I see no culprit lesion appropriate for PCI
5. Total contrast 46 mL Visipaque
6. The patient was given Lasix 40 mg IV and IV nitroglycerin at 20 mcg/min infusion in the [facility]. The femoral venous sheath was removed with manual compression in the [facility]. On transfer out of the [facility], the patient denied ongoing chest
discomfort but did complain of diffuse abdominal discomfort. There was no rebound tenderness and no real direct tenderness on examination. He remains critically ill requiring O2 4 L/min to maintain O2 sat of 93%. He will be admitted to internal
medicine and transferred to the ICU. Chest x-ray and echocardiography will be urgently requested. Heparin will resume in 3 hours.
Abdomen/Pelvis CT 05/07
IMPRESSION: No acute pathology of the abdomen or pelvis identified.
too small to characterize hypodense hepatic lesion likely a small cyst or hemangioma. Stable
Simple bilateral renal cysts. Stable
Nonobstructing left renal stone. Stable
Small bilateral pleural effusions. New
Moderate bibasilar consolidation. New
Moderate fecal material in the colon. Stable
Mild diverticulosis. Stable
Chest X ray 05/09
IMPRESSION:
Diffusely increased interstitial and small alveolar opacities, pattern highly suggestive of pulmonary edema. There appears to have been progression since most recent examination of May 07, 2024.
Discharge Plan
-
Patient Disposition:
Date/Time
Date/Time: 05/11/24 06:27
Discharge Date and Time
Discharge Date/Time: 05/11/24 06:27
Print Language: DOMINICAN
--- NOTE | 2024-05-11 11:05 | CM ---
As per pt today..
--- NOTE | 2024-05-12 09:57 | PN.CDI ---
CDI
- -
CDI:
Physician Documentation Request
Admit Date: 05/07/24 11:38
Dear Doctor Josefa,
Patient admitted with heart failure.
05/09 [facility] note states 'pt rested well in beginning of shift then twice pt with increased anxiety and restlessness and increased WOB with agitation. Ativan iv given x2.'
05/10 Hospitalist notes 'Patient required to have soft restraints as agitated' and later same day 'Patient is more agitated and needing high-flow for oxygen support'
Based on the above, could you clarify the most likely etiology of the altered mental status.
Encephalopathy - indicate type, such as metabolic, toxic, septic, alcoholic, anoxic, hypertensive etc. due to a specific condition such as UTI, CVA, hyponatremia etc.
Acute Delirium - indicate known or suspected etiology such as postoperative, due to opioids or other drugs etc. Can also indicate unknown or mixed etiologies.
Acute or subacute confusional state due to ____ (specify known or suspected etiology)
Other
Use of terms such as suspected, likely, concern for, or probable (associated with a specific diagnosis that is being evaluated, monitored, or treated as if it exists) are acceptable and can be coded in the inpatient setting, when documented at the
time of discharge.
Thank you,
Nilda Iglesias RN, BSN
CDI Specialist
tiger text
Please use your independent medical judgment in providing your response.
== END 2024-05-11 06:27 | disposition expired ==
LOC: ICU 11:38
PROVIDERS: Internal Medicine Cardiovascular Disease; Nurse Practitioner Adult Health; Nurse Practitioner Family; Physician Assistant; Student in an Organized Health Care Education/Training Program; ADMITTING PHYSICIAN Hospitalist; CONSULT PHYSICIAN Internal Medicine; CONSULT PHYSICIAN Internal Medicine Gastroenterology; CONSULT PHYSICIAN Specialist; EMERGENCY PHYSICIAN Emergency Medicine; FAMILY PHYSICIAN Internal Medicine; OTHER PHYSICIAN Nurse Practitioner Gerontology
PROC: B2111ZZ Fluoroscopy of Multiple Coronary Arteries using Low Osmolar Contrast (ICD-10-PCS; 2024-05-07)
PROC: B2151ZZ Fluoroscopy of Left Heart using Low Osmolar Contrast (ICD-10-PCS; 2024-05-07)
PROC: 4A023N7 Measurement of Cardiac Sampling and Pressure, Left Heart, Percutaneous Approach (ICD-10-PCS; 2024-05-07)
DX: I13.0 Hypertensive heart and chronic kidney disease with heart failure and stage 1 through stage 4 chronic kidney disease, or unspecified chronic kidney disease (principal); G93.41 Metabolic encephalopathy; I21.4 Non-ST elevation (NSTEMI) myocardial infarction; I50.41 Acute combined systolic (congestive) and diastolic (congestive) heart failure; J96.01 Acute respiratory failure with hypoxia; N17.9 Acute kidney failure, unspecified; C90.00 Multiple myeloma not having achieved remission; Z79.82 Long term (current) use of aspirin; Z87.891 Personal history of nicotine dependence; I25.10 Atherosclerotic heart disease of native coronary artery without angina pectoris; N18.32 Chronic kidney disease, stage 3b; Z51.5 Encounter for palliative care; Z66 Do not resuscitate
CPT/HCPCS: 93308; 71045; 74176; 80048; 80053; 80061; 81003; 82570; 83690; 83735; 84100; 84145; 84156; 84484; 85025; 85027; 85347; 85610; 85730; 93005; 93321; 93325; 93460; 96365; 96375; 99291; C1894; Q9967